=== PATIENT | male | born 1955 | race Caucasian/White ===

== ENCOUNTER 2018-07-10 09:40 | Inpatient (IN) | payer BC, MEDICARE, OTHER ==
--- NOTE | 2018-07-10 10:13 | ER Document Report ---
ED Medical Screen (RME) - General Chief Complaint: Bloody Stools Stated Complaint: BLOOD IN STOOL Time Seen by Provider: 07/10/18 10:04 Mode of Arrival: Ambulatory Information source: Patient TRAVEL OUTSIDE OF THE [place] IN LAST 30 DAYS: No - HPI Patient complains to provider of: BLOOD IN STOOL, NEAR SYNCOPE Notes: 07/10/18 10:11 Patient here with complaints of bloody stool. The patient states that last night he had a few episodes of feeling somewhat dizzy. This morning he went to work and has had several episodes of bright red blood in his stool with some dark stool as well. States last time that he went to the bathroom, he felt like he was going to pass out when he got up. He got very dizzy, diaphoretic. No syncope, but very close to syncope. No chest pain. Patient denies blood thinners aside from a baby aspirin at night. He denies any chronic NSAID use. He denies any alcohol use. No history of GI bleed. No chest pain. Exam Nontoxic, no distress. Pale. Lungs clear and equal throughout. Mild tachycardia. No focal abdominal tenderness on limited abdominal exam in triage. Plan CBC, CMP, troponin, EKG, type and screen, coags, saline lock. Patient will be taken back to the room immediately. An initial examination was made on the patient as part of the triage process, and it was determined a more comprehensive evaluation was necessary. Initial labs were ordered and patient was transferred to another provider in the ED who assumed care and finished evaluation and plan. - Related Data Allergies/Adverse Reactions: No Known Allergies Allergy (Verified 07/10/18 09:42) Past Medical History - Social History Chew tobacco use (# tins/day): Yes Frequency of alcohol use: None Drug Abuse: None - Past Medical History Cardiac Medical History: Reports: Hx Hypercholesterolemia, Hx Hypertension Endocrine Medical History: Reports: Hx Diabetes Mellitus Type 2 Renal/ Medical History: Denies: Hx Peritoneal Dialysis Past Surgical History: Reports: Hx Cholecystectomy, Hx Orthopedic Surgery - right wrist fx - Immunizations Hx Diphtheria, Pertussis, Tetanus Vaccination: Yes Physical Exam - Vital signs Vitals: Temp Pulse Resp BP Pulse Ox 98.0 F 116 H 18 99/58 L 100 07/10/18 09:52 07/10/18 09:52 07/10/18 09:52 07/10/18 09:52 07/10/18 09:52 Course - Vital Signs Vital signs: Temp Pulse Resp BP Pulse Ox 98.0 F 116 H 18 99/58 L 100 07/10/18 09:52 07/10/18 09:52 07/10/18 09:52 07/10/18 09:52 07/10/18 09:52
[2018-07-10] MEDS ORDERED: ROCURONIUM BROMIDE INJ 50 MG/5 ML VIAL IV ONE (10:43)
[2018-07-10] MEDS ORDERED: PHENYLEPHRINE HCL INJ/PF 10 MG/1 ML SDV ONE (10:43)
[2018-07-10] MEDS ORDERED: DEXAMETHASONE SOD PHOSPHATE INJ 4 MG/1 ML VIAL ONE (10:43)
[2018-07-10] MEDS ORDERED: ONDANSETRON HCL INJ/PF 4 MG/2 ML SDV ONE ×2 (10:43→17:22)
[2018-07-10] MEDS ORDERED: SUCCINYLCHOLINE CHLORIDE INJ 200 MG/10 ML VIAL ONE (10:43)
[2018-07-10 10:54] LABS: ABSOLUTE EOSINOPHILS # (AUTO) 0.1 10^3/uL (0.0-0.6); ABSOLUTE LYMPHOCYTES (AUTO) 1.3 10^3/uL (0.5-4.7); ABSOLUTE MONOCYTES (AUTO) 0.7 10^3/uL (0.1-1.4); ABSOLUTE NEUT (AUTO) 8.6 10^3/uL (1.7-8.2); BASOPHILS % (AUTO) 0.4 % (0-2); EOSINOPHILS % (AUTO) 1.3 % (0-6); HEMATOCRIT 35.4 % (37.9-51.0); HEMOGLOBIN 12.5 g/dL (13.5-17.0); LYMPHOCYTES % (AUTO) 11.8 % (13-45); MEAN CORPUSCULAR HEMOGLOBIN 30.7 pg (27.0-33.4); MEAN CORPUSCULAR HGB CONC 35.4 g/dL (32.0-36.0); MEAN CORPUSCULAR VOLUME 87 fl (80-97); MONOCYTES % (AUTO) 6.7 % (3-13); PLATELET COUNT 211 10^3/uL (150-450); RED BLOOD COUNT 4.08 10^6/uL (4.35-5.55); RED CELL DISTRIBUTION WIDTH 13.5 % (11.5-14.0); SEGMENTED NEUTROPHILS % (AUTO) 79.8 % (42-78); TOTAL CELLS COUNTED % (AUTO) 100 %; WHITE BLOOD COUNT 10.8 10^3/uL (4.0-10.5)
[2018-07-10 11:08] LABS: INTERNATIONAL RATION (INR) 1.01; PARTIAL THROMBOPLASTIN TIME 24.1 SEC (23.5-35.8); PROTHROMBIN TIME 13.8 SEC (11.4-15.4)
[2018-07-10 11:28] LABS: ALANINE AMINOTRANSFERASE 24 U/L (21-72); ALBUMIN 3.8 g/dL (3.5-5.0); ALKALINE PHOSPHATASE 54 U/L (38-126); ANION GAP 9 (5-19); ASPARTATE AMINO TRANSFERASE 20 U/L (17-59); BILIRUBIN,DIRECT 0.4 mg/dL (0.0-0.4); BILIRUBIN,TOTAL 1.1 mg/dL (0.2-1.3); BLOOD UREA NITROGEN 18 mg/dL (7-20); CALCIUM 9.1 mg/dL (8.4-10.2); CARBON DIOXIDE 23 mmol/L (22-30); CHLORIDE 105 mmol/L (98-107); GLUCOSE 267 mg/dL (75-110); POTASSIUM 4.2 mmol/L (3.6-5.0); SODIUM 137.2 mmol/L (137-145); TOTAL PROTEIN 6.3 g/dL (6.3-8.2)
[2018-07-10] MEDS ORDERED: NORMAL SALINE 1000 ML 1,000 ML IV ONE ×3 (11:31→13:03)
--- NOTE | 2018-07-10 11:31 | ER Document Report ---
ED General - General Chief Complaint: Bloody Stools Stated Complaint: BLOOD IN STOOL Time Seen by Provider: 07/10/18 10:04 Mode of Arrival: Ambulatory TRAVEL OUTSIDE OF THE [place] IN LAST 30 DAYS: No - HPI Notes: Patient presents to the emergency department for evaluation of GI bleeding. He states he has had bright red and dark maroon stools. He had 4 episodes prior to arrival. He states that with these episodes he has become diaphoretic, near syncopal, dizzy. He denies any pain of any sort. He states he takes a baby aspirin daily but no other blood thinners. He denies any recent abnormal travel. He had a colonoscopy done approximately [address] Bullock. He s tates there were no significant abnormalities to his knowledge. - Related Data Allergies/Adverse Reactions: No Known Allergies Allergy (Verified 07/10/18 09:42) Past Medical History - General Information source: Patient - Social History Smoking Status: Never Smoker Chew tobacco use (# tins/day): Yes Frequency of alcohol use: None Drug Abuse: None Family History: Reviewed & Not Pertinent Patient has suicidal ideation: No Patient has homicidal ideation: No - Past Medical History Cardiac Medical History: Reports: Hx Hypercholesterolemia, Hx Hypertension Endocrine Medical History: Reports: Hx Diabetes Mellitus Type 2 Renal/ Medical History: Denies: Hx Peritoneal Dialysis Past Surgical History: Reports: Hx Cholecystectomy, Hx Orthopedic Surgery - right wrist fx - Immunizations Hx Diphtheria, Pertussis, Tetanus Vaccination: Yes Review of Systems - Review of Systems Constitutional: Weakness EENT: No symptoms reported Cardiovascular: No symptoms reported Respiratory: No symptoms reported Genitourinary: See HPI Musculoskeletal: No symptoms reported Skin: No symptoms reported Neurological/Psychological: See HPI Physical Exam - Vital signs Vitals: Temp Pulse Resp BP Pulse Ox 98.0 F 116 H 18 99/58 L 100 07/10/18 09:52 07/10/18 09:52 07/10/18 09:52 07/10/18 09:52 07/10/18 09:52 - Notes Notes: 63-year-old male appears his stated age in a mild amount of distress. I actually see him when he is on his way back from the bathroom. He had a near syncopal episode there. He is pale, diaphoretic, weak. Head is normal cephalic any traumatic. Pupils are equal, round, reactive to light. Conjunctive are pale. Oral mucosa is moist. Heart is regular rate and rhythm, lungs are clear to auscultate bilaterally. Abdomen is soft, nontender. Extremities without cy anosis or clubbing. Calves nontender. Peripheral pulses are equal. Patient is awake and alert, oriented x3. Cranial nerves II through XII are grossly intact without focal neurological deficits. Strength is 4+ out of 5 bilateral upper and lower extremities. Sensation is intact. Reflexes symmetrical. Course - Re-evaluation Re-evalutation: 07/10/18 11:30 Patient presents to the emergency department for evaluation. On arrival he was initially seen by triage. Laboratory investigations have been ordered. The patient was going to the bathroom to produce a stool sample when he became near syncopal. His was with him. He did not fall all the way to the ground. He did not hit his head or lose consciousness. He was brought into the room and at that time I examined him. He was pale and diaphoretic. He was given IV fluids. 2 large-bore IVs were established. He remains on the monitor. Hemoglobin is 12.5, I do not have a baseline hemoglobin for this patient. He is currently symptomatic with significant GI bleeding. We will try to contact his rug setter [place]. Unfortunately, we do not have an on-call rug setter [place] today. We will continue to follow. 07/10/18 13:35 At 12 noon I did speak to the patient's rug setter [place], Dr. Bullock. He agreed to see the patient in consult, stated initially that he would require medical stabilization first. After 2 L, the patient's heart rate is in the 80s- 90s. His blood pressures have been between 95 and 110 systolic after adequate fluid resuscitation. He is on normal saline at 200 ml\hour. He has not had any further bleeding episodes. He no longer feels near syncopal. I spoke with Dr. Smith, who accepted the patient. I then spoke to Kamila Clark NP, who will see the patient for admission. - Vital Signs Vital signs: Temp Pulse Resp BP Pulse Ox 98.0 F 116 H 13 96/58 L 100 07/10/18 09:52 07/10/18 09:52 07/10/18 12:31 07/10/18 12:31 07/10/18 12:31 - Laboratory Result Diagrams: 07/10/18 13:50 07/10/18 10:27 Laboratory results interpreted by me: 07/10/18 07/10/18 07/10/18 10:27 10:27 11:10 WBC 10.8 H RBC 4.08 L 2.67 L Hgb 12.5 L 8.1 L D Hct 35.4 L 23.5 L Plt Count 133 L Seg Neutrophils % 79.8 H Lymphocytes % 11.8 L Absolute Neutrophils 8.6 H Glucose 267 H - EKG Interpretation by Me Additional EKG results interpreted by me: 07/10/18 13:37 Normal sinus with a rate of 100 bpm. Normal axis and intervals, no acute ST changes concerning for ischemia or infarction. Critical Care Note - Critical Care Note Total time excluding time spent on procedures (mins): 20 Discharge - Discharge Clinical Impression: GI bleeding, Hematochezia, Anemia, blood loss Condition: Stable Disposition: ADMITTED INPATIENT Admitting Provider: Kamila Clark NP, under Dr. Smith Unit Admitted: [facility]
--- NOTE | 2018-07-10 12:39 | EKG REPORT ---
SEVERITY:- OTHERWISE NORMAL ECG - SINUS TACHYCARDIA : Confirmed by: Rosalino Cheney MD 10-Jul-2018 12:38:31
[2018-07-10 13:35] LABS: HEMATOCRIT 23.5 % (37.9-51.0); MEAN CORPUSCULAR HEMOGLOBIN 30.3 pg (27.0-33.4); MEAN CORPUSCULAR HGB CONC 34.4 g/dL (32.0-36.0); MEAN CORPUSCULAR VOLUME 88 fl (80-97); PLATELET COUNT 133 10^3/uL (150-450); RED BLOOD COUNT 2.67 10^6/uL (4.35-5.55); RED CELL DISTRIBUTION WIDTH 13.2 % (11.5-14.0)
[2018-07-10 13:36] LABS: HEMOGLOBIN 8.1 g/dL (13.5-17.0)
[2018-07-10] MEDS ORDERED: PEG 3350/NA SULF,BICARB,CL/KCL 4000 ML PO ONE (14:00)
[2018-07-10 14:05] LABS: HEMATOCRIT 29.2 % (37.9-51.0); MEAN CORPUSCULAR HEMOGLOBIN 30.4 pg (27.0-33.4); MEAN CORPUSCULAR HGB CONC 35.4 g/dL (32.0-36.0); MEAN CORPUSCULAR VOLUME 86 fl (80-97); PLATELET COUNT 174 10^3/uL (150-450); RED BLOOD COUNT 3.39 10^6/uL (4.35-5.55); RED CELL DISTRIBUTION WIDTH 13.7 % (11.5-14.0); WHITE BLOOD COUNT 12.5 10^3/uL (4.0-10.5)
[2018-07-10 14:07] LABS: HEMOGLOBIN 10.3 g/dL (13.5-17.0)
[2018-07-10] MEDS ORDERED: DEXTROSE 50%-WATER 25 GM/50 ML DISP.SYRIN IV PRN ×2 (14:19)
[2018-07-10] MEDS ORDERED: DEXTROSE 40% GEL 15 GM TUBE PO PRN ×2 (14:19)
[2018-07-10] MEDS ORDERED: GLUCAGON,HUMAN RECOMB 1 MG INJ IM PRN (14:19)
[2018-07-10] MEDS ORDERED: PROMETHAZINE HCL INJ 25 MG/1 ML VIAL IV PRN (14:37)
[2018-07-10] MEDS ORDERED: ACETAMINOPHEN 325 MG TABLET PO PRN (14:37)
[2018-07-10] MEDS ORDERED: NORMAL SALINE 250 ML IV PRN ×2 (15:00)
[2018-07-10 15:32] LABS: HEMATOCRIT 28.5 % (37.9-51.0); MEAN CORPUSCULAR HEMOGLOBIN 30.7 pg (27.0-33.4); MEAN CORPUSCULAR HGB CONC 34.9 g/dL (32.0-36.0); MEAN CORPUSCULAR VOLUME 88 fl (80-97); PLATELET COUNT 203 10^3/uL (150-450); RED BLOOD COUNT 3.24 10^6/uL (4.35-5.55); RED CELL DISTRIBUTION WIDTH 13.3 % (11.5-14.0); WHITE BLOOD COUNT 11.9 10^3/uL (4.0-10.5)
[2018-07-10] MEDS ORDERED: FENTANYL CITRATE INJ/PF 100 MCG/2 ML AMPUL ONE (17:22)
[2018-07-10] MEDS ORDERED: DIPHENHYDRAMINE HCL 50 MG/ML VIAL ONE (17:22)
[2018-07-10] MEDS ORDERED: NALOXONE HCL INJ/PF 0.4 MG/1 ML SDV ONE (17:23)
[2018-07-10] MEDS ORDERED: EPINEPHRINE INJ 1 MG/10 ML DISP.SYRIN ONE ×2 (17:23→19:12)
[2018-07-10] MEDS ORDERED: FLUMAZENIL INJ 0.5 MG/5 ML VIAL ONE (17:23)
[2018-07-10] MEDS ORDERED: GLUCAGON,HUMAN RECOMB 1 MG INJ ONE (17:23)
[2018-07-10 17:38] LABS: APPEARANCE,URINE SLIGHTLY-CLOUDY; BILIRUBIN,URINE NEGATIVE (NEGATIVE); COLOR,URINE YELLOW; GLUCOSE, URINE 50 mg/dL (NEGATIVE); KETONES,URINE 20 mg/dL (NEGATIVE); LEUKOCYTE ESTERASE,URINE NEGATIVE (NEGATIVE); NITRITE,URINE NEGATIVE (NEGATIVE); PROTEIN,URINE NEGATIVE (NEGATIVE); URINE SPECIFIC GRAVITY 1.021; UROBILINOGEN,URINE NEGATIVE mg/dL (<2.0)
[2018-07-10] MEDS ORDERED: NORMAL SALINE 1000 ML 1,000 ML IV PRN (18:32)
[2018-07-10] MEDS: INSULIN LISPRO 100 UNIT/ML 3 ML VIAL SUBCUT SCH (18:47)
[2018-07-10] MEDS: MIDAZOLAM 2 MG/2 ML INJ ONE ×2 (18:47→18:50)
--- NOTE | 2018-07-10 18:51 | PDOC H&P ---
History of Present Illness Admission Date/PCP: 07/10/18 13:45 THOMPSON CANNON MD History of Present Illness: LORETTA SHINE SR is a 63 year old male with past medical history significant for hypertension, hyperlipidemia type 2 diabetes mellitus, and arthritis who presented to the emergency department today with a complaint of 1 day of dizziness followed by onset of melena. No previous history of GI bleeding. Has had routine colonoscopy that was unremarkable in the past. Patient reports that he uses meloxicam daily with intermittent/rare BC powder use but no other regular NSAID or alcohol intake. While in the emergency department, he had a large grossly bloody, bright red blood with clots bowel movement the immediately proceeded a witnessed syncopal event by nursing and the ED provider. Patient did not experience a fall at that time as he was sitting on the commode. However, he did have a second syncopal event while getting up to a bedside commode on his own with fall to the floor, without reported injury. Evaluation by the ED provider revealed initial hemoglobin of 12.5 (unknown baseline) that has trended down to 10.0, mild leukocytosis (11.9), normal coags, unremarkable chemistry, normal urinalysis, and clearly occult stool positive. ED provider arranged with Dr. Bullock for the patient undergo colonoscopy this evening; patient has already completed part of his bowel prep. At the time of my exam, the patient was pale, diaphoretic, slightly tachycardic (heart rate 105), and hypotensive after receiving 2.5 L of IV fluids (manual blood pressure 90/58). He was ordered 2 units of PRBCs stat and admitted to the ICU for management of the above stated complaints. Past Medical History Cardiac Medical History: Reports: Hyperlipidema, Hypertension Denies: Coronary Artery Disease, Myocardial Infarction Pulmonary Medical History: Reports: None EENT Medical History: Reports: None Neurological Medical History: Reports: None Endocrine Medical History: Reports: Diabetes Mellitus Type 2 Denies: Hypothyroidism Renal/ Medical History: Reports: None Malignancy Medical History: Reports: None GI Medical History: Reports: None Musculoskeltal Medical History: Reports: Arthritis Psychiatric Medical History: Reports: None Traumatic Medical History: Reports: None Hematology: Reports: None Infectious Medical History: Reports: None Past Surgical History Past Surgical History: Reports: Cholecystectomy, Orthopedic Surgery - right wrist fx Social History Information Source: Patient Lives with: Spouse/Significant other Smoking Status: Never Smoker Frequency of Alcohol Use: None Hx Recreational Drug Use: No Hx Prescription Drug Abuse: No - Advance Directive Resuscitation Status: Full Code Family History Family History: Reviewed & Not Pertinent, CVA, DM Parental Family History Reviewed: Yes Children Family History Reviewed: Yes Sibling(s) Family History Reviewed.: Yes Medication/Allergy Home Medications: Aspirin [Juan Chewable Aspirin] 81 mg PO DAILY 07/10/18 Atorvastatin Calcium [Lipitor 40 mg Tablet] 1 tab PO DAILY 07/10/18 Lisinopril [Prinivil] 10 mg PO DAILY 07/10/18 Meloxicam [Mobic 15 mg Tablet] 1 tab PO DAILY 07/10/18 Mv-Mn/Folic Acid/Lutein/Qcf264 [Mens Multivit High Potency Tab] 1 each PO DAILY 07/10/18 Sitagliptin Phos/Metformin HCl [Janumet Xr 50-1,000 mg Tablet] 1 tab PO DAILY 07/10/18 Allergies/Adverse Reactions: No Known Allergies Allergy (Verified 07/10/18 09:42) Review of Systems Constitutional: PRESENT: fatigue, weakness. ABSENT: chills, fever(s), headache(s), weight gain, weight loss Eyes: ABSENT: visual disturbances Ears: ABSENT: hearing changes Cardiovascular: ABSENT: chest pain, dyspnea on exertion, edema, orthropnea, palpitations Respiratory: ABSENT: cough, hemoptysis Gastrointestinal: PRESENT: as per HPI, melena. ABSENT: abdominal pain, constipation, diarrhea, hematemesis, hematochezia, nausea, vomiting Genitourinary: ABSENT: dysuria, hematuria Musculoskeletal: ABSENT: joint swelling Integumentary: ABSENT: rash, wounds Neurological: PRESENT: dizziness, syncope. ABSENT: abnormal gait, abnormal speech, confusion, focal weakness Psychiatric: ABSENT: anxiety, depression, homidical ideation, suicidal ideation Endocrine: ABSENT: cold intolerance, heat intolerance, polydipsia, polyuria Hematologic/Lymphatic: ABSENT: easy bleeding, easy bruising Physical Exam Vital Signs: Temp Pulse Resp BP Pulse Ox 98.1 F 90 21 H 97/53 L 100 07/10/18 17:49 07/10/18 17:49 07/10/18 18:00 07/10/18 17:55 07/10/18 18:00 Intake & Output 07/09/18 07/10/18 07/11/18 06:59 06:59 06:59 Intake Total 2000 Output Total 0 Balance 1999 Weight 115.3 kg General appearance: PRESENT: cooperative, mild distress, obese, well-developed, well-nourished Head exam: PRESENT: atraumatic, normocephalic Eye exam: PRESENT: conjunctiva pale, EOMI, PERRLA. ABSENT: scleral icterus Mouth exam: PRESENT: moist, tongue midline Neck exam: ABSENT: carotid bruit, JVD, lymphadenopathy, thyromegaly Respiratory exam: PRESENT: clear to auscultation shayne, symmetrical, unlabored. ABSENT: rales, rhonchi, wheezes Cardiovascular exam: PRESENT: RRR, +S1, +S2, tachycardia. ABSENT: diastolic murmur, rubs, systolic murmur Pulses: PRESENT: normal dorsalis pedis pul Vascular exam: PRESENT: normal capillary refill GI/Abdominal exam: PRESENT: normal bowel sounds, soft. ABSENT: distended, guarding, mass, organolmegaly, rebound, tenderness Rectal exam: PRESENT: deferred Extremities exam: PRESENT: full ROM. ABSENT: calf tenderness, clubbing, pedal edema Neurological exam: PRESENT: alert, awake, oriented to person, oriented to place, oriented to time, oriented to situation, CN II-XII grossly intact. ABSENT: motor sensory deficit Psychiatric exam: PRESENT: appropriate affect, normal mood. ABSENT: homicidal ideation, suicidal ideation Skin exam: PRESENT: dry, intact, warm. ABSENT: cyanosis, rash Results Laboratory Results: 07/10/18 15:19 07/10/18 10:27 07/10/18 07/10/18 07/10/18 10:27 10:27 10:27 WBC 10.8 H RBC 4.08 L Hgb 12.5 L Hct 35.4 L MCV 87 MCH 30.7 MCHC 35.4 RDW 13.5 Plt Count 211 Seg Neutrophils % 79.8 H Lymphocytes % 11.8 L Monocytes % 6.7 Eosinophils % 1.3 Basophils % 0.4 Absolute Neutrophils 8.6 H Absolute Lymphocytes 1.3 Absolute Monocytes 0.7 Absolute Eosinophils 0.1 Absolute Basophils 0.0 Sodium 137.2 Potassium 4.2 Chloride 105 Carbon Dioxide 23 Anion Gap 9 BUN 18 Creatinine 0.91 Est GFR ( Amer) > 60 Est GFR (Non-Af Amer) > 60 Glucose 267 H Calcium 9.1 Total Bilirubin 1.1 AST 20 ALT 24 Alkaline Phosphatase 54 Total Protein 6.3 Albumin 3.8 Urine Color Urine Appearance Urine pH Ur Specific Adams Urine Protein Urine Glucose (UA) Urine Ketones Urine Blood Urine Nitrite Ur Leukocyte Esterase Urine WBC (Auto) Urine RBC (Auto) Stool Occult Blood Blood Type B POSITIVE Antibody Screen NEGATIVE 07/10/18 07/10/18 07/10/18 11:10 11:10 13:50 WBC 9.0 12.5 H RBC 2.67 L 3.39 L Hgb 8.1 L D 10.3 L D Hct 23.5 L 29.2 L MCV 88 86 MCH 30.3 30.4 MCHC 34.4 35.4 RDW 13.2 13.7 Plt Count 133 L 174 Seg Neutrophils % Lymphocytes % Monocytes % Eosinophils % Basophils % Absolute Neutrophils Absolute Lymphocytes Absolute Monocytes Absolute Eosinophils Absolute Basophils Sodium Potassium Chloride Carbon Dioxide Anion Gap BUN Creatinine Est GFR ( Amer) Est GFR (Non-Af Amer) Glucose Calcium Total Bilirubin AST ALT Alkaline Phosphatase Total Protein Albumin Urine Color Urine Appearance Urine pH Ur Specific Adams Urine Protein Urine Glucose (UA) Urine Ketones Urine Blood Urine Nitrite Ur Leukocyte Esterase Urine WBC (Auto) Urine RBC (Auto) Stool Occult Blood POSITIVE Blood Type Antibody Screen 07/10/18 07/10/18 15:19 17:10 WBC 11.9 H RBC 3.24 L Hgb 10.0 L Hct 28.5 L MCV 88 MCH 30.7 MCHC 34.9 RDW 13.3 Plt Count 203 Seg Neutrophils % Lymphocytes % Monocytes % Eosinophils % Basophils % Absolute Neutrophils Absolute Lymphocytes Absolute Monocytes Absolute Eosinophils Absolute Basophils Sodium Potassium Chloride Carbon Dioxide Anion Gap BUN Creatinine Est GFR ( Amer) Est GFR (Non-Af Amer) Glucose Calcium Total Bilirubin AST ALT Alkaline Phosphatase Total Protein Albumin Urine Color YELLOW Urine Appearance SLIGHTLY-CLOUDY Urine pH 5.0 Ur Specific Adams 1.021 Urine Protein NEGATIVE Urine Glucose (UA) 50 H Urine Ketones 20 H Urine Blood NEGATIVE Urine Nitrite NEGATIVE Ur Leukocyte Esterase NEGATIVE Urine WBC (Auto) 2 Urine RBC (Auto) 0 Stool Occult Blood Blood Type Antibody Screen 07/10/18 10:27 Troponin I 0.032 Assessment and Plan - Diagnosis (1) GI bleeding Qualifiers: GI bleed type/associated pathology: unspecified gastrointestinal hemorrhage type Qualified Code(s): K92.2 - Gastrointestinal hemorrhage, unspecified Is this a current diagnosis for this admission?: Yes Plan: Lower GI bleed with hematochezia, erick bright red blood per rectum with blood clots. Patient presented with onset of melena noted this morning that rapidly p rogressed while in the emergency department to erick bleeding. He does utilize aspirin and meloxicam daily at home but does not have additional NSAID, BC powder, or EtOH use. He is admitted to the ICU. We will start Protonix IV daily for PUD ppx. GI is consulted; Dr. Bullock has ordered GoLYTELY with plans to do colonoscopy this evening. Continue IV fluids. 2 units PRBC secondary to active bleeding with syncope, tachycardia, and hypotension. Serial CBCs; continue to transfuse as necessary. (2) Acute blood loss anemia Is this a current diagnosis for this admission?: Yes Plan: Secondary to lower GI bleed. Hgb 12.5--> 8.1 (believed to be in error; likely drawn from extremity w/ IVF running)--> 10.3--> 10.0 (now receiving 1st unit blood) Patient has received 2.5 L IV fluids; continuing maintenance IV fluids. He is ordered 2 units PRBC stat. We will monitor serial CBCs and continue to transfuse for hemoglobin less than 8 or active bleeding. Remaining management as above. (3) Diabetes mellitus Qualifiers: Diabetes mellitus type: type 2 Diabetes mellitus fci insulin use: without long distance operator use Is this a current diagnosis for this admission?: Yes Plan: Patient is currently n.p.o. secondary to active GI bleed and need for colonoscopy. Accu-Cheks every 6 hours with Humalog for sliding scale coverage and hypoglycemia protocol in place. (4) Hypertension Is this a current diagnosis for this admission?: Yes Plan: Patient reports history of hypertension; typically utilizes lisinopril at home. Currently hypotensive secondary to acute blood loss anemia. Holding home dose lisinopril. (5) Hyperlipidemia Is this a current diagnosis for this admission?: Yes Plan: Holding patient's dose atorvastatin currently secondary to n.p.o. status. (6) Hypotension Qualifiers: Hypotension type: other hypotension type Qualified Code(s): I95.89 - Other hypotension Is this a current diagnosis for this admission?: Yes Plan: Secondary to acute blood loss anemia in setting of lower GI bleed. Bed rest. Fall precautions. Remaining management as above. (7) Syncope and collapse Is this a current diagnosis for this admission?: Yes Plan: Secondary to hypotension and possible vasovagal response and patient with acute blood loss anemia secondary to active GI bleeding. The patient had a syncopal event while sitting on the commode, without fall or injury. Per ED provider the patient was witnessed to be tachycardic, hypotensive, pale and diaphoretic with snoring respirations. This improved with return to the bed and aggressive IV fluids. A second syncopal event, witnessed by his , occurred when the patient got up independently to use a bedside commode. At that time he did fall to the floor, without reported injury. Bed rest. Fall precautions. Management as above. - Time Time Spent with patient: 35 or more minutes Medications reviewed and adjusted accordingly: Yes Anticipated discharge: Home - Inpatient Certification Based on my medical assessment, after consideration of the patient's comorbidities, presenting symptoms, or acuity I expect that the services needed warrant INPATIENT care.: Yes I certify that my determination is in accordance with my understanding of Medicare's requirements for reasonable and necessary INPATIENT services [42 CFR 412.3e].: Yes Medical Necessity: Need Close Monitoring Due to Risk of Patient Decompensation, Need For IV Fluids, Need For Continuous Telemetry Monitoring, Need for Surgery, Risk of Complication if Not Cared For in Hospital
--- NOTE | 2018-07-10 19:40 | PDOC CONSULTATION ---
Consultation Consult Date: 07/10/18 History of Present Illness Admission Date/PCP: 07/10/18 13:45 THOMPSON CANNON MD History of Present Illness: LORETTA SHINE SR is a 63 year old male who was admitted through the emergency room with acute rectal bleeding. He started to pass bright red blood per rectum this morning and has had multiple episodes at home and also in the emergency room. He had a near syncopal attack in the ER. He denies any abdominal pain, nausea, vomiting, or hematemesis. He has a history of pancolonic diverticulosis from a colonoscopy I performed in 2010. On arrival his hemoglobin was 12 but after a few hours it came down to 10. He has been hypotensive and has required IV bolus and currently being transfused. Past Medical History Cardiac Medical History: Reports: Hyperlipidema, Hypertension Denies: Coronary Artery Disease, Myocardial Infarction Pulmonary Medical History: Reports: None EENT Medical History: Reports: None Neurological Medical History: Reports: None Endocrine Medical History: Reports: Diabetes Mellitus Type 2 Denies: Hypothyroidism Renal/ Medical History: Reports: None Malignancy Medical History: Reports: None GI Medical History: Reports: None GI History Note: Pancolonic diverticulosis Musculoskeltal Medical History: Reports: Arthritis Psychiatric Medical History: Reports: None Traumatic Medical History: Reports: None Hematology: Reports: None Infectious Medical History: Reports: None Past Surgical History Past Surgical History: Colonoscopy in 2010 Past Surgical History: Reports: Cholecystectomy, Orthopedic Surgery - right wrist fx Social History Lives with: Spouse/Significant other Smoking Status: Never Smoker Frequency of Alcohol Use: None Hx Recreational Drug Use: No Hx Prescription Drug Abuse: No - Advance Directive Resuscitation Status: Full Code Family History Family History: Reviewed & Not Pertinent, CVA, DM Parental Family History Reviewed: No Children Family History Reviewed: NA Sibling(s) Family History Reviewed.: NA Medication/Allergy Home Medications: Aspirin [Juan Chewable Aspirin] 81 mg PO DAILY 07/10/18 Atorvastatin Calcium [Lipitor 40 mg Tablet] 1 tab PO DAILY 07/10/18 Lisinopril [Prinivil] 10 mg PO DAILY 07/10/18 Meloxicam [Mobic 15 mg Tablet] 1 tab PO DAILY 07/10/18 Mv-Mn/Folic Acid/Lutein/Enf240 [Mens Multivit High Potency Tab] 1 each PO DAILY 07/10/18 Sitagliptin Phos/Metformin HCl [Janumet Xr 50-1,000 mg Tablet] 1 tab PO DAILY 07/10/18 Allergies/Adverse Reactions: No Known Allergies Allergy (Verified 07/10/18 09:42) Review of Systems All systems: reviewed and no additional remarkable complaints except as stated Physical Exam Vital Signs: Temp Pulse Resp BP Pulse Ox 98.2 F 97 20 88/45 L 100 07/10/18 19:15 07/10/18 19:15 07/10/18 19:15 07/10/18 19:15 07/10/18 19:15 Intake & Output 07/09/18 07/10/18 07/11/18 06:59 06:59 06:59 Intake Total 2300 Output Total 0 Balance 2300 Weight 115.3 kg Exam: General: Patient is alert and looks pale HEENT: There is pallor but no jaundice. PERRLA. Oropharynx normal Respiratory: No chest deformity. No respiratory distress. Chest wall palpitation was unremarkable. Breath sounds were normal Cardiovascular: Heart sounds 1 and 2 normal with no murmurs. Abdominal: Not distended. Soft and nontender. Liver and spleen not palpable. No ascites demonstrated. Bowel sounds active. Rectal examination was deferred. Extremities: No edema Neurological: Alert and oriented x4. Grossly nonfocal. Normal speech Skin: No significant rash Psychological: Normal affect Results Laboratory Results: 07/10/18 15:19 07/10/18 10:27 07/10/18 07/10/18 07/10/18 10:27 10:27 10:27 WBC 10.8 H RBC 4.08 L Hgb 12.5 L Hct 35.4 L MCV 87 MCH 30.7 MCHC 35.4 RDW 13.5 Plt Count 211 Seg Neutrophils % 79.8 H Lymphocytes % 11.8 L Monocytes % 6.7 Eosinophils % 1.3 Basophils % 0.4 Absolute Neutrophils 8.6 H Absolute Lymphocytes 1.3 Absolute Monocytes 0.7 Absolute Eosinophils 0.1 Absolute Basophils 0.0 Sodium 137.2 Potassium 4.2 Chloride 105 Carbon Dioxide 23 Anion Gap 9 BUN 18 Creatinine 0.91 Est GFR ( Amer) > 60 Est GFR (Non-Af Amer) > 60 Glucose 267 H Calcium 9.1 Total Bilirubin 1.1 AST 20 ALT 24 Alkaline Phosphatase 54 Total Protein 6.3 Albumin 3.8 Urine Color Urine Appearance Urine pH Ur Specific [place] Urine Protein Urine Glucose (UA) Urine Ketones Urine Blood Urine Nitrite Ur Leukocyte Esterase Urine WBC (Auto) Urine RBC (Auto) Stool Occult Blood Blood Type B POSITIVE Antibody Screen NEGATIVE 07/10/18 07/10/18 07/10/18 11:10 11:10 13:50 WBC 9.0 12.5 H RBC 2.67 L 3.39 L Hgb 8.1 L D 10.3 L D Hct 23.5 L 29.2 L MCV 88 86 MCH 30.3 30.4 MCHC 34.4 35.4 RDW 13.2 13.7 Plt Count 133 L 174 Seg Neutrophils % Lymphocytes % Monocytes % Eosinophils % Basophils % Absolute Neutrophils Absolute Lymphocytes Absolute Monocytes Absolute Eosinophils Absolute Basophils Sodium Potassium Chloride Carbon Dioxide Anion Gap BUN Creatinine Est GFR ( Amer) Est GFR (Non-Af Amer) Glucose Calcium Total Bilirubin AST ALT Alkaline Phosphatase Total Protein Albumin Urine Color Urine Appearance Urine pH Ur Specific [place] Urine Protein Urine Glucose (UA) Urine Ketones Urine Blood Urine Nitrite Ur Leukocyte Esterase Urine WBC (Auto) Urine RBC (Auto) Stool Occult Blood POSITIVE Blood Type Antibody Screen 07/10/18 07/10/18 15:19 17:10 WBC 11.9 H RBC 3.24 L Hgb 10.0 L Hct 28.5 L MCV 88 MCH 30.7 MCHC 34.9 RDW 13.3 Plt Count 203 Seg Neutrophils % Lymphocytes % Monocytes % Eosinophils % Basophils % Absolute Neutrophils Absolute Lymphocytes Absolute Monocytes Absolute Eosinophils Absolute Basophils Sodium Potassium Chloride Carbon Dioxide Anion Gap BUN Creatinine Est GFR ( Amer) Est GFR (Non-Af Amer) Glucose Calcium Total Bilirubin AST ALT Alkaline Phosphatase Total Protein Albumin Urine Color YELLOW Urine Appearance SLIGHTLY-CLOUDY Urine pH 5.0 Ur Specific [place] 1.021 Urine Protein NEGATIVE Urine Glucose (UA) 50 H Urine Ketones 20 H Urine Blood NEGATIVE Urine Nitrite NEGATIVE Ur Leukocyte Esterase NEGATIVE Urine WBC (Auto) 2 Urine RBC (Auto) 0 Stool Occult Blood Blood Type Antibody Screen 07/10/18 10:27 Troponin I 0.032 Assessment & Plan - Diagnosis (1) GI bleeding Qualifiers: GI bleed type/associated pathology: unspecified gastrointestinal hemorrhage type Qualified Code(s): K92.2 - Gastrointestinal hemorrhage, unspecified Is this a current diagnosis for this admission?: Yes Plan: He is likely bleeding from his pancolonic diverticulosis. He will undergo an urgent EGD and colonoscopy. Continue to follow H&H and transfuse as needed (2) Acute blood loss anemia Is this a current diagnosis for this admission?: Yes (3) Hypotension Qualifiers: Hypotension type: other hypotension type Qualified Code(s): I95.89 - Other hypotension Is this a current diagnosis for this admission?: Yes
--- NOTE | 2018-07-10 19:45 | Operative Report ---
Operative Report DATE OF SURGERY: 07/10/18 Operative Report: Pre-op diagnosis: Acute GI bleeding Post-op diagnosis: 1. Duodenal ulcer with a clean base 2. Pancolonic diverticulosis with no definite bleeding diverticulum identified Surgery: Upper endoscopy with biopsy and Colonoscopy Medications: Versed 2mg, Fentanyl 50mcg IV push Tissue removed: Antral and gastric body biopsy Procedure: After informed consent obtained from patient, patient's pharynx was sprayed with Hurricane and conscious sedation was achieved. The upper endoscope was then inserted into the esophagus under direct vision and advanced into the stomach and further into the duodenum. Detailed examination of the duodenum, stomach and the esophagus was then performed. A digital rectal examination was performed and this was unremarkable. The colonoscope was inserted into the rectum and advanced to the cecum. The appendiceal orifice and the terminal ileum were both identified. The mucosa was examined into details as the colonoscope was slowly pulled out of the patient. The endoscope was retroflexed in the rectum. Patient tolerated the procedure well. Findings Esophagus: Normal Stomach: Normal Duodenum: 6 mm ulcer noted at the duodenal bulb with a clean white base. Cecum: Normal Ascending colon: Moderate amount of diverticuli Transverse colon: Multiple diverticuli with a big fresh clot noted in the proximal transverse colon. Detailed examination of this area did not reveal a bleeding diverticulum. There was altered blood noted all over the colon but I was able to clean this out Descending colon: Multiple diverticuli Sigmoid colon: Multiple diverticuli Rectum: Normal except for internal hemorrhoids Plan: Continue to follow H&H. Schedule bleeding scan and obtain surgical consult. Continue IV pantoprazole and discharge with p.o. PPI OPERATION: .
--- NOTE | 2018-07-10 22:53 | RADIOLOGY REPORT (SQ) ---
EXAM DESCRIPTION: NM GASTROINTESTINAL BLEEDING COMPLETED DATE/TME: 07/10/2018 00:00 CLINICAL HISTORY: 63 years Male, Diverticular bleed COMPARISON: None. RADIONUCLIDE AND DOSE: 24.0-mCi Tc99m tagged RBC. TECHNIQUE: Anterior flow imaging, 60 minute anterior static imaging at every two minutes, 60 minute dynamic imaging, Q minute. LIMITATIONS: None. Findings There is accumulation and progression of scintigraphic agent from the right upper abdominal quadrant, expected hepatic flexure, superior mesenteric artery territory. Impression Active lower GI bleed.
--- NOTE | 2018-07-10 23:59 | PDOC CONSULTATION ---
Consultation Consult Date: 07/10/18 Consult reason:: lower gi bleeding History of Present Illness Admission Date/PCP: 07/10/18 13:45 THOMPSON CANNON MD History of Present Illness: LORETTA SHINE SR is a 63 year old maleJwho was admitted through the emergency room with acute rectal bleeding. He started to pass bright red blood per rectum this morning and has had multiple episodes at home and also in the emergency room. He had a near syncopal attack in the ER. He denies any abdominal pain, nausea, vomiting, or hematemesis. He has a history of pancolonic diverticulosis from a colonoscopy performed by ]Dr Mendoza performed in 2010. On arrival his hemoglobin was 12 but after a few hours it came down to 10. He has been hypotensive and has required IV bolus and transfused iwth [address] Mendoza ordered a bleeding scan and I was call by radiologist and notified that there was active bleeding from the hepatic flexure. pt currently is having bloody bowel movements. Past Medical History Cardiac Medical History: Reports: Hyperlipidema, Hypertension Denies: Coronary Artery Disease, Myocardial Infarction Pulmonary Medical History: Reports: None EENT Medical History: Reports: None Neurological Medical History: Reports: None Denies: Seizures Endocrine Medical History: Reports: Diabetes Mellitus Type 2 Denies: Hypothyroidism Renal/ Medical History: Reports: None Malignancy Medical History: Reports: None GI Medical History: Reports: None Musculoskeltal Medical History: Reports: Arthritis Psychiatric Medical History: Reports: None Traumatic Medical History: Reports: None Hematology: Reports: None Infectious Medical History: Reports: None Past Surgical History Past Surgical History: Reports: Cholecystectomy, Orthopedic Surgery - right wrist fx Social History Lives with: Spouse/Significant other Smoking Status: Never Smoker Frequency of Alcohol Use: None Hx Recreational Drug Use: No Hx Prescription Drug Abuse: No - Advance Directive Resuscitation Status: Full Code Family History Family History: Reviewed & Not Pertinent, CVA, DM Parental Family History Reviewed: Yes Children Family History Reviewed: NA Sibling(s) Family History Reviewed.: NA Medication/Allergy Home Medications: Aspirin [Juan Chewable Aspirin] 81 mg PO DAILY 07/10/18 Atorvastatin Calcium [Lipitor 40 mg Tablet] 1 tab PO DAILY 07/10/18 Lisinopril [Prinivil] 10 mg PO DAILY 07/10/18 Meloxicam [Mobic 15 mg Tablet] 1 tab PO DAILY 07/10/18 Mv-Mn/Folic Acid/Lutein/Uoz734 [Mens Multivit High Potency Tab] 1 each PO DAILY 07/10/18 Sitagliptin Phos/Metformin HCl [Janumet Xr 50-1,000 mg Tablet] 1 tab PO DAILY 07/10/18 Allergies/Adverse Reactions: No Known Allergies Allergy (Verified 07/10/18 09:42) Review of Systems Constitutional: ABSENT: chills, fever(s), headache(s), weight gain, weight loss Ears: ABSENT: hearing changes Cardiovascular: ABSENT: chest pain, dyspnea on exertion, edema, orthropnea, palpitations Gastrointestinal: PRESENT: bloating, hematochezia Genitourinary: ABSENT: dysuria, hematuria Musculoskeletal: ABSENT: joint swelling Integumentary: ABSENT: rash, wounds Neurological: ABSENT: abnormal gait, abnormal speech, confusion, dizziness, focal weakness, syncope Psychiatric: ABSENT: anxiety, depression, homidical ideation, suicidal ideation Endocrine: ABSENT: cold intolerance, heat intolerance, polydipsia, polyuria Hematologic/Lymphatic: ABSENT: easy bleeding, easy bruising Physical Exam Vital Signs: Temp Pulse Resp BP Pulse Ox 97.5 F 87 16 107/52 L 100 07/10/18 22:00 07/10/18 19:40 07/10/18 22:37 07/10/18 22:37 07/10/18 22:37 Intake & Output 07/09/18 07/10/18 07/11/18 06:59 06:59 06:59 Intake Total 2700 Output Total 0 Balance 2700 Weight 115.3 kg General appearance: PRESENT: no acute distress Head exam: PRESENT: normocephalic Eye exam: PRESENT: EOMI Mouth exam: PRESENT: dry mucosa Neck exam: PRESENT: full ROM Respiratory exam: PRESENT: clear to auscultation shayne Cardiovascular exam: PRESENT: RRR Pulses: PRESENT: normal radial pulses, normal femoral pulses GI/Abdominal exam: PRESENT: soft Rectal exam: PRESENT: bloody stool Musculoskeletal exam: PRESENT: full ROM Neurological exam: PRESENT: alert, awake, oriented to person, oriented to place, oriented to time, oriented to situation Psychiatric exam: PRESENT: anxious, appropriate affect Results Laboratory Results: 07/10/18 15:19 07/10/18 10:27 07/10/18 07/10/18 07/10/18 10:27 10:27 10:27 WBC 10.8 H RBC 4.08 L Hgb 12.5 L Hct 35.4 L MCV 87 MCH 30.7 MCHC 35.4 RDW 13.5 Plt Count 211 Seg Neutrophils % 79.8 H Lymphocytes % 11.8 L Monocytes % 6.7 Eosinophils % 1.3 Basophils % 0.4 Absolute Neutrophils 8.6 H Absolute Lymphocytes 1.3 Absolute Monocytes 0.7 Absolute Eosinophils 0.1 Absolute Basophils 0.0 Sodium 137.2 Potassium 4.2 Chloride 105 Carbon Dioxide 23 Anion Gap 9 BUN 18 Creatinine 0.91 Est GFR ( Amer) > 60 Est GFR (Non-Af Amer) > 60 Glucose 267 H Calcium 9.1 Total Bilirubin 1.1 AST 20 ALT 24 Alkaline Phosphatase 54 Total Protein 6.3 Albumin 3.8 Urine Color Urine Appearance Urine pH Ur Specific [place] Urine Protein Urine Glucose (UA) Urine Ketones Urine Blood Urine Nitrite Ur Leukocyte Esterase Urine WBC (Auto) Urine RBC (Auto) Stool Occult Blood Blood Type B POSITIVE Antibody Screen NEGATIVE 07/10/18 07/10/18 07/10/18 11:10 11:10 13:50 WBC 9.0 12.5 H RBC 2.67 L 3.39 L Hgb 8.1 L D 10.3 L D Hct 23.5 L 29.2 L MCV 88 86 MCH 30.3 30.4 MCHC 34.4 35.4 RDW 13.2 13.7 Plt Count 133 L 174 Seg Neutrophils % Lymphocytes % Monocytes % Eosinophils % Basophils % Absolute Neutrophils Absolute Lymphocytes Absolute Monocytes Absolute Eosinophils Absolute Basophils Sodium Potassium Chloride Carbon Dioxide Anion Gap BUN Creatinine Est GFR ( Amer) Est GFR (Non-Af Amer) Glucose Calcium Total Bilirubin AST ALT Alkaline Phosphatase Total Protein Albumin Urine Color Urine Appearance Urine pH Ur Specific [place] Urine Protein Urine Glucose (UA) Urine Ketones Urine Blood Urine Nitrite Ur Leukocyte Esterase Urine WBC (Auto) Urine RBC (Auto) Stool Occult Blood POSITIVE Blood Type Antibody Screen 07/10/18 07/10/18 15:19 17:10 WBC 11.9 H RBC 3.24 L Hgb 10.0 L Hct 28.5 L MCV 88 MCH 30.7 MCHC 34.9 RDW 13.3 Plt Count 203 Seg Neutrophils % Lymphocytes % Monocytes % Eosinophils % Basophils % Absolute Neutrophils Absolute Lymphocytes Absolute Monocytes Absolute Eosinophils Absolute Basophils Sodium Potassium Chloride Carbon Dioxide Anion Gap BUN Creatinine Est GFR ( Amer) Est GFR (Non-Af Amer) Glucose Calcium Total Bilirubin AST ALT Alkaline Phosphatase Total Protein Albumin Urine Color YELLOW Urine Appearance SLIGHTLY-CLOUDY Urine pH 5.0 Ur Specific [place] 1.021 Urine Protein NEGATIVE Urine Glucose (UA) 50 H Urine Ketones 20 H Urine Blood NEGATIVE Urine Nitrite NEGATIVE Ur Leukocyte Esterase NEGATIVE Urine WBC (Auto) 2 Urine RBC (Auto) 0 Stool Occult Blood Blood Type Antibody Screen 07/10/18 10:27 Troponin I 0.032 Assessment & Plan - Diagnosis (2) GI bleeding Qualifiers: GI bleed type/associated pathology: unspecified gastrointestinal hemorrhage type Qualified Code(s): K92.2 - Gastrointestinal hemorrhage, unspecified Is this a current diagnosis for this admission?: Yes - Plan Summary Plan Summary: lower gi bleeding from hepatic flexure plan is for extended right hemicolectomy I discussed risks and benifits with pt and his 'including recurrent bleeding infectionl, leak from anastomosis abscess, injury to adjacent organs including ureters mi, pe, stroke, pneumonia, hernia which due tohis obesity and diabetes is likely. pt understands and agrees to proceed.
[2018-07-11] MEDS ORDERED: BUPIVACAINE HCL 0.25 % INJ/PF (2.5 MG/1 ML) 30 ML VIAL ONE (00:19)
[2018-07-11] MEDS ORDERED: BUPIVACAINE INJ/PF LIPOSOME/PF 266 MG/20 ML SDV ONE (00:19)
[2018-07-11] MEDS ORDERED: BUPIVACAINE HCL 0.5%-EPI 1:200000 INJ/PF 30 ML VIAL ONE ×2 (00:19→07:07)
[2018-07-11] MEDS ORDERED: CEFAZOLIN INJ 1 GM VIAL ONE (00:20)
[2018-07-11] MEDS ORDERED: METRONIDAZOLE 500 MG/NS RTU 500 MG/100 ML RTUPB IV ONE (00:22)
[2018-07-11] MEDS ORDERED: FENTANYL CITRATE INJ/PF 250 MCG/5 ML AMPULE ONE (00:46)
[2018-07-11] MEDS ORDERED: MIDAZOLAM 2 MG/2 ML INJ ONE (00:47)
[2018-07-11] MEDS ORDERED: PROPOFOL INJ 200 MG/20 ML VIAL IV ONE (00:47)
[2018-07-11] MEDS ORDERED: HYDROMORPHONE HCL INJ/PF 2 MG/ML AMPULE ONE (00:47)
[2018-07-11] MEDS ORDERED: MEPERIDINE HCL/PF INJ 25 MG/1 ML DISP.SYRIN IV PRN (01:37)
[2018-07-11] MEDS ORDERED: MORPHINE SULFATE 10 MG/ML INJ IV PRN (01:37)
[2018-07-11] MEDS ORDERED: FENTANYL CITRATE INJ/PF 100 MCG/2 ML AMPUL IV PRN ×3 (01:37)
[2018-07-11] MEDS ORDERED: DIPHENHYDRAMINE HCL 50 MG/ML VIAL IV PRN (01:37)
[2018-07-11] MEDS ORDERED: PROMETHAZINE HCL INJ 25 MG/1 ML VIAL IV PRN ×2 (01:37)
--- NOTE | 2018-07-11 02:49 | Operative Report ---
Nonrecallable Operative Report DATE OF SURGERY: 07/11/18 PREOPERATIVE DIAGNOSIS: diverticular bleeding POSTOPERATIVE DIAGNOSIS: diverticular bleeding OPERATION: extended rt hemicolectomy SURGEON: CAROL FERREIRA ANESTHESIA: GA TISSUE REMOVED OR ALTERED: right colon COMPLICATIONS: none ESTIMATED BLOOD LOSS: 100 INTRAOPERATIVE FINDINGS: see dictation PROCEDURE: see dictation
--- NOTE | 2018-07-11 03:25 | OPERATIVE REPORT E ---
Operative Report NAME: LORETTA SHINE SR : 1955 AGE: 63Y DATE OF SURGERY: 07/10/2018 ROOM: 608 PREOPERATIVE DIAGNOSIS: DIVERTICULAR BLEEDING. POSTOPERATIVE DIAGNOSIS: DIVERTICULAR BLEEDING. OPERATION: Extended right hemicolectomy. SURGEON: CAROL FERREIRA M.D. INDICATIONS FOR PROCEDURE: This is a 63-year-old male who presented approximately 36 hours ago with lower GI bleeding and hematochezia. He underwent a colonoscopy by *------* last evening, who documented significant blood in his rectum and did see some fresh blood, but could not identify the source. Specifically, he did identify the fact that it was in either the transverse colon or the hepatic flexure. The patient was then taken to Radiology, where he underwent a bleeding scan, and I was called late last night with the results of that noting active GI bleeding in the hepatic flexure. The patient continued to pass bloody bowel movements despite having 2 units of blood and was, therefore, scheduled for this procedure. PROCEDURE: The patient brought to the operating room awake, alert, in stable condition. Placed on the operative table in supine position. Induced under general anesthesia and intubated. The abdomen was prepped and draped in the usual sterile manner for the procedure. A midline incision was used from about 2 cm below the umbilicus to about 2 cm below the xiphoid. Dissection carried down through subcutaneous tissue with Bovie cautery. The midline fascia was entered with Bovie cautery. The Bookwalter retractor was utilized for retraction. There were some adhesions of omentum to the right upper quadrant from the previous cholecystectomy, which were taken down sharply. Once this was done, we were able to deliver the transverse colon into the abdominal cavity. I then took down the right colon from the peritoneal reflection with Bovie cautery all the way to the cecum and then mobilized the terminal ileum attachments. Once this was done, we continued our dissection cephalic, coming around the hepatic flexure with Bovie cautery to completely free that up, and then dissected the transverse colon and the distal right colon from the omentum using Bovie cautery. We continued this towards the left, where I identified the splenic flexure and took that down sharply with the Bovie cautery and then mobilized the splenic flexure and the distal transverse colon away from the omentum. Once this was accomplished, I mobilized the descending colon along the white line of [place] using Bovie cautery, and noted that the patient did have a somewhat redundant sigmoid colon and descending colon. We then divided the terminal ileum from the colon with 1 firing of the endo YAJAIRA stapler with a blue load and divided the splenic flexure from the descending colon at about 1/3 down the distance from the descending colon, well away from the hepatic flexure, and this was done with the endo YAJAIRA stapler with a blue load. We then divided the mesentery with the LigaSure device all the way across and removed the specimen. Once this was accomplished, we then created an ileal colostomy between the ileum and the proximal descending colon. We did this using a sewn technique, the outer layer being interrupted 3-0 silk and the inner layer being a running 3-0 Vicryl suture. I then closed the mesenteric defect with interrupted placed 2-0 silk sutures. Irrigated the abdominal cavity with normal saline, suctioned dry. Hemostasis was noted to be intact. Placed the NG tube and confirmed good placement, and then closed the midline fascia with a running double-looped 0 PDS suture. The skin was closed with standard skin clips, which completed the procedure. Estimated blood loss was 100 mL. Sponge and needle counts were correct x2. The patient was then transferred back to the intensive care unit in stable condition remaining intubated. DICTATING PHYSICIAN: CAROL EFRREIRA M.D. [id number] PHY#: [id number] ID: [id number] JOB#: [id number] ACCT: [id number] cc:CAROL FERREIRA M.D. >
[2018-07-11 03:58] LABS: HEMATOCRIT 24.1 % (37.9-51.0); HEMOGLOBIN 8.3 g/dL (13.5-17.0); MEAN CORPUSCULAR HEMOGLOBIN 29.6 pg (27.0-33.4); MEAN CORPUSCULAR HGB CONC 34.3 g/dL (32.0-36.0); MEAN CORPUSCULAR VOLUME 86 fl (80-97); PLATELET COUNT 193 10^3/uL (150-450); RED CELL DISTRIBUTION WIDTH 14.6 % (11.5-14.0)
[2018-07-11] MEDS ORDERED: MIDAZOLAM 2 MG/2 ML INJ IV SCH (04:00)
[2018-07-11 04:03] LABS: ANION GAP 6 (5-19); BLOOD UREA NITROGEN 14 mg/dL (7-20); CALCIUM 7.4 mg/dL (8.4-10.2); CARBON DIOXIDE 18 mmol/L (22-30); CHLORIDE 113 mmol/L (98-107); GLUCOSE 247 mg/dL (75-110); POTASSIUM 3.6 mmol/L (3.6-5.0); SODIUM 137.2 mmol/L (137-145)
[2018-07-11] MEDS ORDERED: MIDAZOLAM 2 MG/2 ML INJ IV PRN (04:30)
[2018-07-11 04:34] LABS: ABSOLUTE LYMPHOCYTES# (MANUAL) 0.8 10^3/uL (0.5-4.7); ABSOLUTE MONOCYTES # (MANUAL) 0.4 10^3/uL (0.1-1.4); ABSOLUTE NEUTROPHILS# (MANUAL) 19.3 10^3/uL (1.7-8.2); BAND NEUTROPHILS % (MANUAL) 5 % (3-5); BASOPHILS % (MANUAL) 0 % (0-2); EOSINOPHILS % (MANUAL) 2 % (0-6); LYMPHOCYTES % (MANUAL) 4 % (13-45); MONOCYTES % (MANUAL) 2 % (3-13); SEGMENTED NEUTROPHILS % (MAN) 87 % (42-78); TOTAL CELLS COUNTED 100
[2018-07-11 04:35] LABS: ANISOCYTOSIS SLIGHT; HYPOCHROMASIA 1+; PLATELET COMMENT ADEQUATE
[2018-07-11] MEDS ORDERED: NORMAL SALINE 1000 ML 1,000 ML IV ONE (04:45)
[2018-07-11] MEDS: HYDROMORPHONE HCL INJ/PF 2 MG/ML AMPULE IV PRN ×4 (04:51→22:04)
[2018-07-11] MEDS: INSULIN LISPRO 100 UNIT/ML 3 ML VIAL SUBCUT SCH ×5 (05:03→23:25)
[2018-07-11] MEDS: RINGERS SOLUTION,LACTATED 1,000 ML IV PRN ×3 (06:47→23:20)
--- NOTE | 2018-07-11 06:59 | PDOC PROGRESS REPORT ---
Subjective Progress Note for:: 07/11/18 Subjective:: awake, responsive, follows commands intubated Reason For Visit: ABLA, LOWER GI BLEED post op subtotal colectomy for lower gi diverticular bleed. Physical Exam Vital Signs: Temp Pulse Resp BP Pulse Ox 98.1 F 96 10 L 101/58 L 99 07/11/18 05:56 07/11/18 05:49 07/11/18 06:15 07/11/18 06:16 07/11/18 06:16 Intake & Output 07/09/18 07/10/18 07/11/18 06:59 06:59 06:59 Intake Total 4500 Output Total 2050 Balance 2450 Weight 114.9 kg General appearance: PRESENT: cooperative Head exam: PRESENT: normocephalic Eye exam: PRESENT: conjunctiva pale, EOMI Mouth exam: PRESENT: dry mucosa Neck exam: PRESENT: full ROM Respiratory exam: PRESENT: clear to auscultation shayne, other - intubated Cardiovascular exam: PRESENT: tachycardia Pulses: PRESENT: normal radial pulses, normal femoral pulses Vascular exam: PRESENT: pallor GI/Abdominal exam: PRESENT: hypoactive bowel sounds, soft Rectal exam: PRESENT: deferred Gentrourinary exam: PRESENT: indwelling catheter Extremities exam: PRESENT: full ROM Musculoskeletal exam: PRESENT: normal inspection Neurological exam: PRESENT: alert, awake Psychiatric exam: PRESENT: anxious Skin exam: PRESENT: dry, pallor Results Laboratory Results: 07/11/18 03:35 07/11/18 03:35 07/10/18 07/10/18 07/10/18 10:27 10:27 10:27 WBC 10.8 H RBC 4.08 L Hgb 12.5 L Hct 35.4 L MCV 87 MCH 30.7 MCHC 35.4 RDW 13.5 Plt Count 211 Seg Neutrophils % 79.8 H Lymphocytes % 11.8 L Monocytes % 6.7 Eosinophils % 1.3 Basophils % 0.4 Absolute Neutrophils 8.6 H Absolute Lymphocytes 1.3 Absolute Monocytes 0.7 Absolute Eosinophils 0.1 Absolute Basophils 0.0 Sodium 137.2 Potassium 4.2 Chloride 105 Carbon Dioxide 23 Anion Gap 9 BUN 18 Creatinine 0.91 Est GFR ( Amer) > 60 Est GFR (Non-Af Amer) > 60 Glucose 267 H Calcium 9.1 Total Bilirubin 1.1 AST 20 ALT 24 Alkaline Phosphatase 54 Total Protein 6.3 Albumin 3.8 Urine Color Urine Appearance Urine pH Ur Specific Seth Urine Protein Urine Glucose (UA) Urine Ketones Urine Blood Urine Nitrite Ur Leukocyte Esterase Urine WBC (Auto) Urine RBC (Auto) Stool Occult Blood Blood Type B POSITIVE Antibody Screen NEGATIVE 07/10/18 07/10/18 07/10/18 11:10 11:10 13:50 WBC 9.0 12.5 H RBC 2.67 L 3.39 L Hgb 8.1 L D 10.3 L D Hct 23.5 L 29.2 L MCV 88 86 MCH 30.3 30.4 MCHC 34.4 35.4 RDW 13.2 13.7 Plt Count 133 L 174 Seg Neutrophils % Lymphocytes % Monocytes % Eosinophils % Basophils % Absolute Neutrophils Absolute Lymphocytes Absolute Monocytes Absolute Eosinophils Absolute Basophils Sodium Potassium Chloride Carbon Dioxide Anion Gap BUN Creatinine Est GFR ( Amer) Est GFR (Non-Af Amer) Glucose Calcium Total Bilirubin AST ALT Alkaline Phosphatase Total Protein Albumin Urine Color Urine Appearance Urine pH Ur Specific Seth Urine Protein Urine Glucose (UA) Urine Ketones Urine Blood Urine Nitrite Ur Leukocyte Esterase Urine WBC (Auto) Urine RBC (Auto) Stool Occult Blood POSITIVE Blood Type Antibody Screen 07/10/18 07/10/18 07/11/18 15:19 17:10 03:35 WBC 11.9 H RBC 3.24 L Hgb 10.0 L Hct 28.5 L MCV 88 MCH 30.7 MCHC 34.9 RDW 13.3 Plt Count 203 Seg Neutrophils % Lymphocytes % Monocytes % Eosinophils % Basophils % Absolute Neutrophils Absolute Lymphocytes Absolute Monocytes Absolute Eosinophils Absolute Basophils Sodium 137.2 Potassium 3.6 Chloride 113 H Carbon Dioxide 18 L Anion Gap 6 BUN 14 Creatinine 0.64 Est GFR ( Amer) > 60 Est GFR (Non-Af Amer) > 60 Glucose 247 H Calcium 7.4 L Total Bilirubin AST ALT Alkaline Phosphatase Total Protein Albumin Urine Color YELLOW Urine Appearance SLIGHTLY-CLOUDY Urine pH 5.0 Ur Specific Seth 1.021 Urine Protein NEGATIVE Urine Glucose (UA) 50 H Urine Ketones 20 H Urine Blood NEGATIVE Urine Nitrite NEGATIVE Ur Leukocyte Esterase NEGATIVE Urine WBC (Auto) 2 Urine RBC (Auto) 0 Stool Occult Blood Blood Type Antibody Screen 07/11/18 03:35 WBC 21.0 H RBC 2.80 L Hgb 8.3 L Hct 24.1 L MCV 86 MCH 29.6 MCHC 34.3 RDW 14.6 H Plt Count 193 Seg Neutrophils % Not Reportable Lymphocytes % Not Reportable Monocytes % Not Reportable Eosinophils % Not Reportable Basophils % Not Reportable Absolute Neutrophils Not Reportable Absolute Lymphocytes Not Reportable Absolute Monocytes Not Reportable Absolute Eosinophils Not Reportable Absolute Basophils Not Reportable Sodium Potassium Chloride Carbon Dioxide Anion Gap BUN Creatinine Est GFR ( Amer) Est GFR (Non-Af Amer) Glucose Calcium Total Bilirubin AST ALT Alkaline Phosphatase Total Protein Albumin Urine Color Urine Appearance Urine pH Ur Specific Seth Urine Protein Urine Glucose (UA) Urine Ketones Urine Blood Urine Nitrite Ur Leukocyte Esterase Urine WBC (Auto) Urine RBC (Auto) Stool Occult Blood Blood Type Antibody Screen 07/10/18 07/11/18 10:27 03:35 Troponin I 0.032 NT-Pro-B Natriuret Pep 45 Assessment & Plan - Diagnosis (2) GI bleeding Qualifiers: GI bleed type/associated pathology: unspecified gastrointestinal hemorrhage type Qualified Code(s): K92.2 - Gastrointestinal hemorrhage, unspecified Is this a current diagnosis for this admission?: Yes - Plan Summary Plan Summary: approx 6 hrs post op subtotal colectomy sl tachy this am hb 8.3 lytes/creat ok k= 3.6 plan will tx 2 uprbc follow h/h consider extubation later today.
--- NOTE | 2018-07-11 08:27 | PDOC PROGRESS REPORT ---
Subjective Progress Note for:: 07/11/18 Subjective:: Patient is seen resting in bed orally intubated to the ventilator. He is POD 1 after right hemicolectomy last evening for a diverticular bleed. He is awake and alert. He has just been placed on pressure support on the ventilator in hope to extubate soon. He is able to nod his head appropriately to question. Nursing report episode of hypotension overnight that responded to fluids otherwise no issues. He is presently receiving the first of two units or PRBCs. He denies incisional pain Reason For Visit: ABLA, LOWER GI BLEED Physical Exam Vital Signs: Temp Pulse Resp BP Pulse Ox 98.4 F 115 H 20 103/62 99 07/11/18 07:50 07/11/18 07:50 07/11/18 07:50 07/11/18 07:50 07/11/18 07:50 Intake & Output 07/10/18 07/11/18 07/12/18 06:59 06:59 06:59 Intake Total 4500 2000 Output Total 2050 Balance 2450 2000 Weight 114.9 kg General appearance: PRESENT: no acute distress, obese, well-developed, well-nourished, other - orally, intubated, pale Head exam: PRESENT: atraumatic, normocephalic Eye exam: PRESENT: conjunctiva pale Ear exam: PRESENT: normal external ear exam Mouth exam: PRESENT: moist, tongue midline Neck exam: ABSENT: carotid bruit, JVD, lymphadenopathy, thyromegaly Respiratory exam: PRESENT: clear to auscultation shayne, symmetrical, unlabored. ABSENT: rales, rhonchi, wheezes Cardiovascular exam: PRESENT: +S1, +S2, tachycardia Pulses: PRESENT: normal carotid pulses, normal radial pulses GI/Abdominal exam: PRESENT: diminished bowel sounds, soft, tenderness - midline abdominal incision Rectal exam: PRESENT: deferred Extremities exam: PRESENT: full ROM. ABSENT: calf tenderness, clubbing, pedal edema Neurological exam: PRESENT: alert, awake, CN II-XII grossly intact, other - orally intubated following commands, calm Psychiatric exam: PRESENT: appropriate affect, normal mood. ABSENT: homicidal ideation, suicidal ideation Skin exam: PRESENT: dry, intact, warm. ABSENT: cyanosis, rash Results Laboratory Results: 07/11/18 03:35 07/11/18 03:35 07/10/18 07/10/18 07/10/18 10:27 10:27 10:27 WBC 10.8 H RBC 4.08 L Hgb 12.5 L Hct 35.4 L MCV 87 MCH 30.7 MCHC 35.4 RDW 13.5 Plt Count 211 Seg Neutrophils % 79.8 H Lymphocytes % 11.8 L Monocytes % 6.7 Eosinophils % 1.3 Basophils % 0.4 Absolute Neutrophils 8.6 H Absolute Lymphocytes 1.3 Absolute Monocytes 0.7 Absolute Eosinophils 0.1 Absolute Basophils 0.0 Sodium 137.2 Potassium 4.2 Chloride 105 Carbon Dioxide 23 Anion Gap 9 BUN 18 Creatinine 0.91 Est GFR ( Amer) > 60 Est GFR (Non-Af Amer) > 60 Glucose 267 H Calcium 9.1 Total Bilirubin 1.1 AST 20 ALT 24 Alkaline Phosphatase 54 Total Protein 6.3 Albumin 3.8 Urine Color Urine Appearance Urine pH Ur Specific [place] Urine Protein Urine Glucose (UA) Urine Ketones Urine Blood Urine Nitrite Ur Leukocyte Esterase Urine WBC (Auto) Urine RBC (Auto) Stool Occult Blood Blood Type B POSITIVE Antibody Screen NEGATIVE 07/10/18 07/10/18 07/10/18 11:10 11:10 13:50 WBC 9.0 12.5 H RBC 2.67 L 3.39 L Hgb 8.1 L D 10.3 L D Hct 23.5 L 29.2 L MCV 88 86 MCH 30.3 30.4 MCHC 34.4 35.4 RDW 13.2 13.7 Plt Count 133 L 174 Seg Neutrophils % Lymphocytes % Monocytes % Eosinophils % Basophils % Absolute Neutrophils Absolute Lymphocytes Absolute Monocytes Absolute Eosinophils Absolute Basophils Sodium Potassium Chloride Carbon Dioxide Anion Gap BUN Creatinine Est GFR ( Amer) Est GFR (Non-Af Amer) Glucose Calcium Total Bilirubin AST ALT Alkaline Phosphatase Total Protein Albumin Urine Color Urine Appearance Urine pH Ur Specific [place] Urine Protein Urine Glucose (UA) Urine Ketones Urine Blood Urine Nitrite Ur Leukocyte Esterase Urine WBC (Auto) Urine RBC (Auto) Stool Occult Blood POSITIVE Blood Type Antibody Screen 07/10/18 07/10/18 07/11/18 15:19 17:10 03:35 WBC 11.9 H RBC 3.24 L Hgb 10.0 L Hct 28.5 L MCV 88 MCH 30.7 MCHC 34.9 RDW 13.3 Plt Count 203 Seg Neutrophils % Lymphocytes % Monocytes % Eosinophils % Basophils % Absolute Neutrophils Absolute Lymphocytes Absolute Monocytes Absolute Eosinophils Absolute Basophils Sodium 137.2 Potassium 3.6 Chloride 113 H Carbon Dioxide 18 L Anion Gap 6 BUN 14 Creatinine 0.64 Est GFR ( Amer) > 60 Est GFR (Non-Af Amer) > 60 Glucose 247 H Calcium 7.4 L Total Bilirubin AST ALT Alkaline Phosphatase Total Protein Albumin Urine Color YELLOW Urine Appearance SLIGHTLY-CLOUDY Urine pH 5.0 Ur Specific [place] 1.021 Urine Protein NEGATIVE Urine Glucose (UA) 50 H Urine Ketones 20 H Urine Blood NEGATIVE Urine Nitrite NEGATIVE Ur Leukocyte Esterase NEGATIVE Urine WBC (Auto) 2 Urine RBC (Auto) 0 Stool Occult Blood Blood Type Antibody Screen 07/11/18 03:35 WBC 21.0 H RBC 2.80 L Hgb 8.3 L Hct 24.1 L MCV 86 MCH 29.6 MCHC 34.3 RDW 14.6 H Plt Count 193 Seg Neutrophils % Not Reportable Lymphocytes % Not Reportable Monocytes % Not Reportable Eosinophils % Not Reportable Basophils % Not Reportable Absolute Neutrophils Not Reportable Absolute Lymphocytes Not Reportable Absolute Monocytes Not Reportable Absolute Eosinophils Not Reportable Absolute Basophils Not Reportable Sodium Potassium Chloride Carbon Dioxide Anion Gap BUN Creatinine Est GFR ( Amer) Est GFR (Non-Af Amer) Glucose Calcium Total Bilirubin AST ALT Alkaline Phosphatase Total Protein Albumin Urine Color Urine Appearance Urine pH Ur Specific [place] Urine Protein Urine Glucose (UA) Urine Ketones Urine Blood Urine Nitrite Ur Leukocyte Esterase Urine WBC (Auto) Urine RBC (Auto) Stool Occult Blood Blood Type Antibody Screen 07/10/18 07/11/18 10:27 03:35 Troponin I 0.032 NT-Pro-B Natriuret Pep 45 Assessment and Plan - Diagnosis (1) GI bleeding Qualifiers: GI bleed type/associated pathology: unspecified gastrointestinal hemorrhage type Qualified Code(s): K92.2 - Gastrointestinal hemorrhage, unspecified Is this a current diagnosis for this admission?: Yes Plan: Lower GI bleed with hematochezia, erick bright red blood per rectum with blood clots. Patient presented with onset of melena noted this morning that rapidly progressed while in the emergency department to erick bleeding. He does utilize aspirin and meloxicam daily at home but does not have additional NSAID, BC powder, or EtOH use. Patient found to have diverticular bleed at hepatic flexure. Surgery consulted. Patient taken to the OR for partial colectomy. Presently hgb 8.3 order for transfusion for 2 units of PRBCS first infusing now. Will check H&H post transfusion no further melena (2) Status post colectomy Is this a current diagnosis for this admission?: Yes Plan: POD #1, management per surgery. Hopefully will extubate soon (3) Acute blood loss anemia Is this a current diagnosis for this admission?: Yes Plan: He received 2 units PRBCs prior to OR, receiving first of two more at the present time for hgb8.3 (4) Diabetes mellitus Qualifiers: Diabetes mellitus type: type 2 Diabetes mellitus senior living insulin use: without senior living use Is this a current diagnosis for this admission?: Yes Plan: Patient is currently n.p.o. post op hemicolectomy Accu-Cheks every 6 hours with Humalog for sliding scale coverage and hypoglycemia protocol in place. (5) Diverticula of colon Is this a current diagnosis for this admission?: Yes (6) Hematochezia Is this a current diagnosis for this admission?: Yes Plan: No further bleeding post operatively (7) Hyperlipidemia Is this a current diagnosis for this admission?: Yes Plan: Holding patient's dose atorvastatin currently secondary to n.p.o. status. (8) Hypotension Qualifiers: Hypotension type: other hypotension type Qualified Code(s): I95.89 - Other hypotension Is this a current diagnosis for this admission?: Yes Plan: Secondary to acute blood loss anemia in setting of lower GI bleed. Bed rest
[2018-07-11] MEDS: PANTOPRAZOLE SODIUM 40 MG VIAL IV SCH (14:42)
[2018-07-11 16:27] LABS: HEMATOCRIT 25.9 % (37.9-51.0); HEMOGLOBIN 9.2 g/dL (13.5-17.0); MEAN CORPUSCULAR HEMOGLOBIN 30.3 pg (27.0-33.4); MEAN CORPUSCULAR HGB CONC 35.3 g/dL (32.0-36.0); MEAN CORPUSCULAR VOLUME 86 fl (80-97); PLATELET COUNT 145 10^3/uL (150-450); RED BLOOD COUNT 3.03 10^6/uL (4.35-5.55); RED CELL DISTRIBUTION WIDTH 14.5 % (11.5-14.0); WHITE BLOOD COUNT 17.7 10^3/uL (4.0-10.5)
[2018-07-12] MEDS: HYDROMORPHONE HCL INJ/PF 2 MG/ML AMPULE IV PRN ×4 (02:12→21:23)
[2018-07-12 02:19] LABS: HEMATOCRIT 21.8 % (37.9-51.0); MEAN CORPUSCULAR HEMOGLOBIN 29.8 pg (27.0-33.4); MEAN CORPUSCULAR HGB CONC 34.8 g/dL (32.0-36.0); MEAN CORPUSCULAR VOLUME 86 fl (80-97); PLATELET COUNT 122 10^3/uL (150-450); RED BLOOD COUNT 2.54 10^6/uL (4.35-5.55); RED CELL DISTRIBUTION WIDTH 14.6 % (11.5-14.0); WHITE BLOOD COUNT 14.7 10^3/uL (4.0-10.5)
[2018-07-12 02:30] LABS: HEMOGLOBIN 7.6 g/dL (13.5-17.0)
[2018-07-12 02:36] LABS: ANION GAP 10 (5-19); BLOOD UREA NITROGEN 14 mg/dL (7-20); CALCIUM 7.9 mg/dL (8.4-10.2); CARBON DIOXIDE 21 mmol/L (22-30); CHLORIDE 108 mmol/L (98-107); GLUCOSE 212 mg/dL (75-110); SODIUM 138.7 mmol/L (137-145)
[2018-07-12 03:09] LABS: MEAN CORPUSCULAR HEMOGLOBIN 29.9 pg (27.0-33.4); MEAN CORPUSCULAR VOLUME 85 fl (80-97); PLATELET COUNT 125 10^3/uL (150-450); RED BLOOD COUNT 2.46 10^6/uL (4.35-5.55); RED CELL DISTRIBUTION WIDTH 14.7 % (11.5-14.0); WHITE BLOOD COUNT 13.9 10^3/uL (4.0-10.5)
[2018-07-12 03:47] LABS: ABSOLUTE LYMPHOCYTES# (MANUAL) 1.8 10^3/uL (0.5-4.7); ABSOLUTE MONOCYTES # (MANUAL) 0.7 10^3/uL (0.1-1.4); ABSOLUTE NEUTROPHILS# (MANUAL) 11.4 10^3/uL (1.7-8.2); BASOPHILS % (MANUAL) 0 % (0-2); EOSINOPHILS % (MANUAL) 0 % (0-6); LYMPHOCYTES % (MANUAL) 13 % (13-45); MONOCYTES % (MANUAL) 5 % (3-13); SEGMENTED NEUTROPHILS % (MAN) 82 % (42-78); TOTAL CELLS COUNTED 100
[2018-07-12 03:48] LABS: ANISOCYTOSIS SLIGHT; PLATELET COMMENT DECREASED; TOXIC VACUOLATION PRESENT
[2018-07-12 03:49] LABS: HEMOGLOBIN 7.4 g/dL (13.5-17.0)
[2018-07-12] MEDS: INSULIN LISPRO 100 UNIT/ML 3 ML VIAL SUBCUT SCH ×4 (06:31→23:49)
--- NOTE | 2018-07-12 07:29 | PDOC PROGRESS REPORT ---
Subjective Progress Note for:: 07/12/18 Subjective:: feels ok, min c/o incisional pain Reason For Visit: ABLA, LOWER GI BLEED Physical Exam Vital Signs: Temp Pulse Resp BP Pulse Ox 99.6 F 118 H 12 129/97 H 98 07/12/18 06:35 07/12/18 06:35 07/12/18 06:38 07/12/18 06:38 07/12/18 06:38 Intake & Output 07/11/18 07/12/18 07/13/18 06:59 06:59 06:59 Intake Total 4500 4700 Output Total 2050 1750 Balance 2450 2950 Weight 114.9 kg 118.5 kg General appearance: PRESENT: no acute distress, cooperative Head exam: PRESENT: atraumatic Eye exam: PRESENT: EOMI Mouth exam: PRESENT: dry mucosa Neck exam: PRESENT: full ROM Respiratory exam: PRESENT: clear to auscultation shayne Cardiovascular exam: PRESENT: RRR, tachycardia Pulses: PRESENT: normal radial pulses, normal femoral pulses Vascular exam: PRESENT: normal capillary refill GI/Abdominal exam: PRESENT: other - soft, wound clean, non tender Gentrourinary exam: PRESENT: indwelling catheter Extremities exam: PRESENT: full ROM, +1 edema Neurological exam: PRESENT: alert, awake, oriented to person, oriented to place, oriented to time, oriented to situation Psychiatric exam: PRESENT: appropriate affect Skin exam: PRESENT: dry Results Laboratory Results: 07/12/18 02:58 07/12/18 02:05 07/10/18 07/11/18 07/12/18 10:27 16:07 02:05 WBC 17.7 H 14.7 H RBC 3.03 L 2.54 L Hgb 9.2 L 7.6 L Hct 25.9 L 21.8 L MCV 86 86 MCH 30.3 29.8 MCHC 35.3 34.8 RDW 14.5 H 14.6 H Plt Count 145 L 122 L Seg Neutrophils % Lymphocytes % Monocytes % Eosinophils % Basophils % Absolute Neutrophils Absolute Lymphocytes Absolute Monocytes Absolute Eosinophils Absolute Basophils Sodium Potassium Chloride Carbon Dioxide Anion Gap BUN Creatinine Est GFR ( Amer) Est GFR (Non-Af Amer) Glucose Calcium Magnesium Blood Type B POSITIVE Antibody Screen NEGATIVE 07/12/18 07/12/18 02:05 02:58 WBC 13.9 H RBC 2.46 L Hgb 7.4 L Hct 21.0 L MCV 85 MCH 29.9 MCHC 35.0 RDW 14.7 H Plt Count 125 L Seg Neutrophils % Not Reportable Lymphocytes % Not Reportable Monocytes % Not Reportable Eosinophils % Not Reportable Basophils % Not Reportable Absolute Neutrophils Not Reportable Absolute Lymphocytes Not Reportable Absolute Monocytes Not Reportable Absolute Eosinophils Not Reportable Absolute Basophils Not Reportable Sodium 138.7 Potassium 4.0 Chloride 108 H Carbon Dioxide 21 L Anion Gap 10 BUN 14 Creatinine 0.71 Est GFR ( Amer) > 60 Est GFR (Non-Af Amer) > 60 Glucose 212 H Calcium 7.9 L Magnesium 1.6 Blood Type Antibody Screen 07/10/18 07/11/18 10:27 03:35 Troponin I 0.032 NT-Pro-B Natriuret Pep 45 Assessment & Plan - Diagnosis (1) Diverticula of colon Is this a current diagnosis for this admission?: Yes (2) GI bleeding Qualifiers: GI bleed type/associated pathology: unspecified gastrointestinal hemorrhage type Qualified Code(s): K92.2 - Gastrointestinal hemorrhage, unspecified Is this a current diagnosis for this admission?: Yes - Plan Summary Plan Summary: pt generally feels better has not had bm since surgery no flatus hb this am decreased 7.1 however no evidence of ongoing gi losses will tx 2 units additional lasix , pt edematous. dc ng tube sips of clears trend h/h out of bed.
--- NOTE | 2018-07-12 09:06 | PDOC PROGRESS REPORT ---
Subjective Progress Note for:: 07/12/18 Subjective:: He is POD 2 after right hemicolectomy for diverticular bleed. He is awake and alert, and oriented x 3. Hemoglobin dropped to 7.1 this morning. He is being transfused 2 units packed red blood cells. He has had no further rectal bleeding. Reason For Visit: ABLA, LOWER GI BLEED Physical Exam Vital Signs: Temp Pulse Resp BP Pulse Ox 100.3 F 126 H 20 118/61 99 07/12/18 08:35 07/12/18 08:35 07/12/18 08:35 07/12/18 08:35 07/12/18 08:35 Intake & Output 07/11/18 07/12/18 07/13/18 06:59 06:59 06:59 Intake Total 4500 4700 1000 Output Total 2050 1750 250 Balance 2450 2950 750 Weight 114.9 kg 118.5 kg Results Laboratory Results: 07/12/18 02:58 07/12/18 02:05 07/10/18 07/11/18 07/12/18 10:27 16:07 02:05 WBC 17.7 H 14.7 H RBC 3.03 L 2.54 L Hgb 9.2 L 7.6 L Hct 25.9 L 21.8 L MCV 86 86 MCH 30.3 29.8 MCHC 35.3 34.8 RDW 14.5 H 14.6 H Plt Count 145 L 122 L Seg Neutrophils % Lymphocytes % Monocytes % Eosinophils % Basophils % Absolute Neutrophils Absolute Lymphocytes Absolute Monocytes Absolute Eosinophils Absolute Basophils Sodium Potassium Chloride Carbon Dioxide Anion Gap BUN Creatinine Est GFR ( Amer) Est GFR (Non-Af Amer) Glucose Calcium Magnesium Blood Type B POSITIVE Antibody Screen NEGATIVE 07/12/18 07/12/18 02:05 02:58 WBC 13.9 H RBC 2.46 L Hgb 7.4 L Hct 21.0 L MCV 85 MCH 29.9 MCHC 35.0 RDW 14.7 H Plt Count 125 L Seg Neutrophils % Not Reportable Lymphocytes % Not Reportable Monocytes % Not Reportable Eosinophils % Not Reportable Basophils % Not Reportable Absolute Neutrophils Not Reportable Absolute Lymphocytes Not Reportable Absolute Monocytes Not Reportable Absolute Eosinophils Not Reportable Absolute Basophils Not Reportable Sodium 138.7 Potassium 4.0 Chloride 108 H Carbon Dioxide 21 L Anion Gap 10 BUN 14 Creatinine 0.71 Est GFR ( Amer) > 60 Est GFR (Non-Af Amer) > 60 Glucose 212 H Calcium 7.9 L Magnesium 1.6 Blood Type Antibody Screen 07/10/18 07/11/18 10:27 03:35 Troponin I 0.032 NT-Pro-B Natriuret Pep 45 Assessment and Plan - Diagnosis (1) GI bleeding Qualifiers: GI bleed type/associated pathology: unspecified gastrointestinal hemorrhage type Qualified Code(s): K92.2 - Gastrointestinal hemorrhage, unspecified Is this a current diagnosis for this admission?: Yes (2) Status post colectomy Is this a current diagnosis for this admission?: Yes Plan: POD #2, management per surgery. NG tube has been removed by surgery. He is having moderate incisional pain. He is refusing pain medicine presently. We wi ll get him out of bed continue to do incentive spirometry every hour while awake. (3) Acute blood loss anemia Is this a current diagnosis for this admission?: Yes Plan: As above in #1. (4) Diabetes mellitus Qualifiers: Diabetes mellitus type: type 2 Diabetes mellitus assisted insulin use: without truck terminal manager use Is this a current diagnosis for this admission?: Yes Plan: Patient is currently n.p.o. post op hemicolectomy Accu-Cheks every 6 hours with Humalog for sliding scale coverage and hypoglycemia protocol in place. (5) Diverticula of colon Is this a current diagnosis for this admission?: Yes (6) Hematochezia Is this a current diagnosis for this admission?: Yes Plan: Resolved. Secondary to diverticular bleed (7) Hyperlipidemia Is this a current diagnosis for this admission?: Yes Plan: Continue statin. (8) Hypotension Qualifiers: Hypotension type: other hypotension type Qualified Code(s): I95.89 - Other hypotension Is this a current diagnosis for this admission?: Yes Plan: Resolved, secondary to blood loss anemia. - Time Time Spent with patient: 25-34 minutes Total Critical Time (Minutes): 35 Medications reviewed and adjusted accordingly: Yes - Inpatient Certification Based on my medical assessment, after consideration of the patient's comorbidities, presenting symptoms, or acuity I expect that the services needed warrant INPATIENT care.: Yes I certify that my determination is in accordance with my understanding of Medicare's requirements for reasonable and necessary INPATIENT services [42 CFR 412.3e].: Yes Medical Necessity: Need For IV Fluids, Need For Continuous Telemetry Monitoring, Need for Pain Control, Need for Surgery, Risk of Complication if Not Cared For in Hospital
[2018-07-12] MEDS: PANTOPRAZOLE SODIUM 40 MG VIAL IV SCH (09:59)
[2018-07-12] MEDS: FUROSEMIDE INJ/PF 20 MG/2 ML SDV IV SCH ×2 (09:59→21:23)
[2018-07-12] MEDS ORDERED: ACETAMINOPHEN 325 MG TABLET ONE (10:26)
[2018-07-12] MEDS: ACETAMINOPHEN 325 MG TABLET PO PRN (10:30)
[2018-07-12 17:24] LABS: ABSOLUTE BASOPHILS # (AUTO) 0.1 10^3/uL (0.0-0.2); ABSOLUTE LYMPHOCYTES (AUTO) 2.3 10^3/uL (0.5-4.7); BASOPHILS % (AUTO) 0.4 % (0-2); EOSINOPHILS % (AUTO) 0.1 % (0-6); HEMATOCRIT 28.5 % (37.9-51.0); LYMPHOCYTES % (AUTO) 15.8 % (13-45); MEAN CORPUSCULAR HGB CONC 35.1 g/dL (32.0-36.0); MEAN CORPUSCULAR VOLUME 85 fl (80-97); PLATELET COUNT 115 10^3/uL (150-450); RED BLOOD COUNT 3.35 10^6/uL (4.35-5.55); RED CELL DISTRIBUTION WIDTH 14.7 % (11.5-14.0); SEGMENTED NEUTROPHILS % (AUTO) 76.7 % (42-78); TOTAL CELLS COUNTED % (AUTO) 100 %; WHITE BLOOD COUNT 14.4 10^3/uL (4.0-10.5)
[2018-07-12] MEDS: RINGERS SOLUTION,LACTATED 1,000 ML IV PRN (18:37)
[2018-07-13] MEDS: RINGERS SOLUTION,LACTATED 1,000 ML IV PRN (02:41)
[2018-07-13] MEDS: HYDROMORPHONE HCL INJ/PF 2 MG/ML AMPULE IV PRN (03:46)
[2018-07-13] MEDS: INSULIN LISPRO 100 UNIT/ML 3 ML VIAL SUBCUT SCH ×4 (05:43→22:13)
--- NOTE | 2018-07-13 08:53 | PDOC PROGRESS REPORT ---
Subjective Progress Note for:: 07/13/18 Subjective:: He is POD #3 after colectomy for diverticular bleed. He denies any chest pain, shortness of breath or dyspnea. He denies any cough. He is having some moderate incisional discomfort. He states he had some nausea earlier this morning none presently. He has been taking small amounts of clear liquids. He denies any other arthralgias or myalgias. Nursing report no other issues overnight. He states his bowels did move small amount. Remaining review of systems are negative. Reason For Visit: ABLA, LOWER GI BLEED Physical Exam Vital Signs: Temp Pulse Resp BP Pulse Ox 96.8 F L 106 H 16 113/66 96 07/13/18 07:26 07/13/18 07:26 07/13/18 07:26 07/13/18 07:26 07/13/18 07:26 Intake & Output 07/12/18 07/13/18 07/14/18 06:59 06:59 06:59 Intake Total 4700 2900 Output Total 1750 3650 Balance 2950 -750 Weight 118.5 kg 118.1 kg General appearance: PRESENT: no acute distress, obese, well-developed, well- nourished Head exam: PRESENT: atraumatic, normocephalic Eye exam: PRESENT: conjunctiva pink, EOMI, PERRLA. ABSENT: scleral icterus Ear exam: PRESENT: normal external ear exam Mouth exam: PRESENT: moist, tongue midline Neck exam: ABSENT: carotid bruit, JVD, lymphadenopathy, thyromegaly Respiratory exam: PRESENT: clear to auscultation shayne. ABSENT: rales, rhonchi, wheezes Cardiovascular exam: PRESENT: RRR. ABSENT: diastolic murmur, rubs, systolic murmur Pulses: PRESENT: normal carotid pulses, normal radial pulses Vascular exam: PRESENT: normal capillary refill GI/Abdominal exam: PRESENT: diminished bowel sounds, soft, tenderness - Along midline incision Rectal exam: PRESENT: deferred Extremities exam: PRESENT: full ROM, +1 edema - Pedal to knees Musculoskeletal exam: PRESENT: ambulatory, full ROM, normal inspection Neurological exam: PRESENT: alert, awake, oriented to person, oriented to place, oriented to time, oriented to situation, CN II-XII grossly intact. ABSENT: motor sensory deficit Psychiatric exam: PRESENT: appropriate affect, normal mood. ABSENT: homicidal ideation, suicidal ideation Skin exam: PRESENT: dry, intact, warm. ABSENT: cyanosis, rash Results Laboratory Results: 07/12/18 17:09 07/12/18 02:05 07/10/18 07/12/18 10:27 17:09 WBC 14.4 H RBC 3.35 L Hgb 10.0 L D Hct 28.5 L MCV 85 MCH 30.0 MCHC 35.1 RDW 14.7 H Plt Count 115 L Seg Neutrophils % 76.7 Lymphocytes % 15.8 Monocytes % 7.0 Eosinophils % 0.1 Basophils % 0.4 Absolute Neutrophils 11.0 H Absolute Lymphocytes 2.3 Absolute Monocytes 1.0 Absolute Eosinophils 0.0 Absolute Basophils 0.1 Blood Type B POSITIVE Antibody Screen NEGATIVE 07/10/18 07/11/18 10:27 03:35 Troponin I 0.032 NT-Pro-B Natriuret Pep 45 Assessment and Plan - Diagnosis (1) GI bleeding Qualifiers: GI bleed type/associated pathology: unspecified gastrointestinal hemorrhage type Qualified Code(s): K92.2 - Gastrointestinal hemorrhage, unspecified Is this a current diagnosis for this admission?: Yes Plan: Patient was found to have a diverticular bleed needing colectomy. He is postop day #3. He is had a total of 6 units packed red blood cells no further bleeding. (2) Status post colectomy Is this a current diagnosis for this admission?: Yes Plan: Postop day #3 (3) Acute blood loss anemia Is this a current diagnosis for this admission?: Yes Plan: As above in #1. (4) Diabetes mellitus Qualifiers: Diabetes mellitus type: type 2 Diabetes mellitus usp insulin use: without rodent exterminator use Is this a current diagnosis for this admission?: Yes Plan: Continue sliding scale for now. Starting clear liquids (5) Diverticula of colon Is this a current diagnosis for this admission?: Yes (6) Hematochezia Is this a current diagnosis for this admission?: Yes Plan: Resolved. (7) Hyperlipidemia Is this a current diagnosis for this admission?: Yes Plan: Continue statin. (8) Hypotension Qualifiers: Hypotension type: other hypotension type Qualified Code(s): I95.89 - Other hypotension Is this a current diagnosis for this admission?: Yes Plan: Resolved secondary to acute blood loss anemia - Time Time Spent with patient: 25-34 minutes Total Critical Time (Minutes): 25 Medications reviewed and adjusted accordingly: Yes Anticipated discharge: Home with Homehealth - Inpatient Certification Based on my medical assessment, after consideration of the patient's comorbidities, presenting symptoms, or acuity I expect that the services needed warrant INPATIENT care.: Yes I certify that my determination is in accordance with my understanding of Medicare's requirements for reasonable and necessary INPATIENT services [42 CFR 412.3e].: Yes Medical Necessity: Need for Surgery, Risk of Complication if Not Cared For in Hospital
[2018-07-13] MEDS ORDERED: DEXTROSE 50%-WATER 25 GM/50 ML DISP.SYRIN IV PRN (08:55)
[2018-07-13] MEDS: PANTOPRAZOLE SODIUM 40 MG VIAL IV SCH (09:08)
[2018-07-13] MEDS: FUROSEMIDE INJ/PF 20 MG/2 ML SDV IV SCH ×2 (09:08→22:13)
[2018-07-13] MEDS: OXYCODONE HCL IR 5 MG TABLET PO PRN ×2 (09:08→22:12)
[2018-07-13] MEDS: ONDANSETRON HCL INJ/PF 4 MG/2 ML SDV IV PRN (09:08)
[2018-07-13 09:17] LABS: ABSOLUTE BASOPHILS # (AUTO) 0.1 10^3/uL (0.0-0.2); ABSOLUTE EOSINOPHILS # (AUTO) 0.1 10^3/uL (0.0-0.6); ABSOLUTE MONOCYTES (AUTO) 0.9 10^3/uL (0.1-1.4); ABSOLUTE NEUT (AUTO) 9.5 10^3/uL (1.7-8.2); BASOPHILS % (AUTO) 0.6 % (0-2); EOSINOPHILS % (AUTO) 0.8 % (0-6); HEMATOCRIT 29.9 % (37.9-51.0); HEMOGLOBIN 10.7 g/dL (13.5-17.0); MEAN CORPUSCULAR HEMOGLOBIN 30.1 pg (27.0-33.4); MEAN CORPUSCULAR HGB CONC 35.9 g/dL (32.0-36.0); MEAN CORPUSCULAR VOLUME 84 fl (80-97); MONOCYTES % (AUTO) 7.4 % (3-13); PLATELET COUNT 141 10^3/uL (150-450); RED BLOOD COUNT 3.57 10^6/uL (4.35-5.55); RED CELL DISTRIBUTION WIDTH 14.8 % (11.5-14.0); SEGMENTED NEUTROPHILS % (AUTO) 75.2 % (42-78); TOTAL CELLS COUNTED % (AUTO) 100 %; WHITE BLOOD COUNT 12.7 10^3/uL (4.0-10.5)
--- NOTE | 2018-07-13 09:31 | PDOC PROGRESS REPORT ---
Subjective Progress Note for:: 07/13/18 Subjective:: feels ok bloated passed dark blood stool yesterday min flatus Reason For Visit: ABLA, LOWER GI BLEED Physical Exam Vital Signs: Temp Pulse Resp BP Pulse Ox 96.8 F L 106 H 16 113/66 96 07/13/18 07:26 07/13/18 07:26 07/13/18 07:26 07/13/18 07:26 07/13/18 07:26 Intake & Output 07/12/18 07/13/18 07/14/18 06:59 06:59 06:59 Intake Total 4700 2900 794 Output Total 1750 3650 Balance 2950 -750 794 Weight 118.5 kg 118.1 kg General appearance: PRESENT: no acute distress Head exam: PRESENT: normocephalic Eye exam: PRESENT: EOMI Neck exam: PRESENT: full ROM Respiratory exam: PRESENT: clear to auscultation shayne Cardiovascular exam: PRESENT: RRR, tachycardia Pulses: PRESENT: normal radial pulses, normal femoral pulses Vascular exam: PRESENT: normal capillary refill GI/Abdominal exam: PRESENT: soft - decreased bowel sounds Rectal exam: PRESENT: deferred Gentrourinary exam: PRESENT: indwelling catheter Extremities exam: PRESENT: full ROM Musculoskeletal exam: PRESENT: full ROM Neurological exam: PRESENT: alert, awake, oriented to person, oriented to place, oriented to time, oriented to situation Psychiatric exam: PRESENT: appropriate affect Skin exam: PRESENT: dry Results Laboratory Results: 07/13/18 09:10 07/10/18 07/12/18 07/13/18 10:27 17:09 09:10 WBC 14.4 H 12.7 H RBC 3.35 L 3.57 L Hgb 10.0 L D 10.7 L Hct 28.5 L 29.9 L MCV 85 84 MCH 30.0 30.1 MCHC 35.1 35.9 RDW 14.7 H 14.8 H Plt Count 115 L 141 L Seg Neutrophils % 76.7 75.2 Lymphocytes % 15.8 16.0 Monocytes % 7.0 7.4 Eosinophils % 0.1 0.8 Basophils % 0.4 0.6 Absolute Neutrophils 11.0 H 9.5 H Absolute Lymphocytes 2.3 2.0 Absolute Monocytes 1.0 0.9 Absolute Eosinophils 0.0 0.1 Absolute Basophils 0.1 0.1 Blood Type B POSITIVE Antibody Screen NEGATIVE 07/10/18 07/11/18 10:27 03:35 Troponin I 0.032 NT-Pro-B Natriuret Pep 45 Assessment & Plan - Diagnosis (1) Diverticula of colon Is this a current diagnosis for this admission?: Yes (2) GI bleeding Qualifiers: GI bleed type/associated pathology: unspecified gastrointestinal hemorrhage type Qualified Code(s): K92.2 - Gastrointestinal hemorrhage, unspecified Is this a current diagnosis for this admission?: Yes - Plan Summary Plan Summary: s/p subtotal colectomy hct stable since 5pm,yesterday passed dark old blood yesterday tmax 101, vss plan dc bell today out of bed cont clears till passing more flatus ok to tx to reg nursing floor.
[2018-07-13 09:41] LABS: ANION GAP 6 (5-19); BLOOD UREA NITROGEN 9 mg/dL (7-20); CALCIUM 8.2 mg/dL (8.4-10.2); CARBON DIOXIDE 28 mmol/L (22-30); CHLORIDE 98 mmol/L (98-107); GLUCOSE 206 mg/dL (75-110); POTASSIUM 3.6 mmol/L (3.6-5.0)
[2018-07-13] MEDS: DOCUSATE SODIUM 100 MG CAPSULE PO SCH ×2 (14:00→18:25)
[2018-07-14] MEDS: ONDANSETRON HCL INJ/PF 4 MG/2 ML SDV IV PRN ×3 (03:14→22:08)
[2018-07-14 05:47] LABS: HEMATOCRIT 32.3 % (37.9-51.0); HEMOGLOBIN 11.3 g/dL (13.5-17.0); MEAN CORPUSCULAR HEMOGLOBIN 29.9 pg (27.0-33.4); MEAN CORPUSCULAR HGB CONC 35.1 g/dL (32.0-36.0); MEAN CORPUSCULAR VOLUME 85 fl (80-97); PLATELET COUNT 149 10^3/uL (150-450)
[2018-07-14 06:09] LABS: ANION GAP 11 (5-19); BLOOD UREA NITROGEN 10 mg/dL (7-20); CALCIUM 8.1 mg/dL (8.4-10.2); CARBON DIOXIDE 27 mmol/L (22-30); CHLORIDE 95 mmol/L (98-107); GLUCOSE 219 mg/dL (75-110)
[2018-07-14] MEDS: INSULIN LISPRO 100 UNIT/ML 3 ML VIAL SUBCUT SCH ×4 (07:43→22:00)
[2018-07-14] MEDS: PANTOPRAZOLE SODIUM 40 MG VIAL IV SCH (10:39)
[2018-07-14] MEDS: DOCUSATE SODIUM 100 MG CAPSULE PO SCH ×2 (10:39→17:03)
--- NOTE | 2018-07-14 12:29 | PDOC PROGRESS REPORT ---
Subjective Progress Note for:: 07/14/18 Subjective:: feels ok, wants to eat no bm some flatus yesterday Reason For Visit: ABLA, LOWER GI BLEED Physical Exam Vital Signs: Temp Pulse Resp BP Pulse Ox 99.6 F 110 H 18 134/66 H 97 07/14/18 12:00 07/14/18 12:00 07/14/18 12:00 07/14/18 12:00 07/14/18 12:00 Intake & Output 07/13/18 07/14/18 07/15/18 06:59 06:59 06:59 Intake Total 2900 1324 Output Total 3650 975 Balance -750 349 Weight 118.1 kg 117.5 kg General appearance: PRESENT: no acute distress Head exam: PRESENT: normocephalic Eye exam: PRESENT: EOMI Mouth exam: PRESENT: dry mucosa Neck exam: PRESENT: full ROM Respiratory exam: PRESENT: clear to auscultation shayne Cardiovascular exam: PRESENT: RRR Pulses: PRESENT: +2 pedal pulses bilateral GI/Abdominal exam: PRESENT: soft Rectal exam: PRESENT: deferred Musculoskeletal exam: PRESENT: full ROM Neurological exam: PRESENT: alert, awake, oriented to person, oriented to place Psychiatric exam: PRESENT: appropriate affect Results Laboratory Results: 07/14/18 04:16 07/14/18 04:16 07/14/18 07/14/18 04:16 04:16 WBC 8.0 RBC 3.80 L Hgb 11.3 L Hct 32.3 L MCV 85 MCH 29.9 MCHC 35.1 RDW 15.0 H Plt Count 149 L Sodium 133.0 L Potassium 4.0 Chloride 95 L Carbon Dioxide 27 Anion Gap 11 BUN 10 Creatinine 0.75 Est GFR ( Amer) > 60 Est GFR (Non-Af Amer) > 60 Glucose 219 H Calcium 8.1 L Magnesium 1.9 07/10/18 07/11/18 10:27 03:35 Troponin I 0.032 NT-Pro-B Natriuret Pep 45 Assessment & Plan - Diagnosis (1) Diverticula of colon Is this a current diagnosis for this admission?: Yes (2) GI bleeding Qualifiers: GI bleed type/associated pathology: unspecified gastrointestinal hemorrhage type Qualified Code(s): K92.2 - Gastrointestinal hemorrhage, unspecified Is this a current diagnosis for this admission?: Yes - Plan Summary Plan Summary: cont to improve no evidence of recurrent bleed hb increased today to 11 no further bloody bm's will slowly advance to full liquids awaiting return of bowel function
--- NOTE | 2018-07-14 13:57 | PDOC PROGRESS REPORT ---
Subjective Progress Note for:: 07/14/18 Subjective:: He is POD #4 after colectomy for diverticular bleed. He states he had a " rough night.." due to nausea vomiting. He denies any chest pain, shortness of breath or dyspnea. He denies any cough. He is having some moderate incisional discomfort. He has been taking small amounts of clear liquids. He denies any other arthralgias or myalgias. Nursing report no other issues overnight. He states his bowels did move small amount. Remaining review of systems are ne gative. Reason For Visit: ABLA, LOWER GI BLEED Physical Exam Vital Signs: Temp Pulse Resp BP Pulse Ox 99.6 F 110 H 18 134/66 H 97 07/14/18 12:00 07/14/18 12:00 07/14/18 12:00 07/14/18 12:00 07/14/18 12:00 Intake & Output 07/13/18 07/14/18 07/15/18 06:59 06:59 06:59 Intake Total 2900 1324 Output Total 3650 975 Balance -750 349 Weight 118.1 kg 117.5 kg General appearance: PRESENT: no acute distress, obese, well-developed, well-nourished Head exam: PRESENT: atraumatic, normocephalic Eye exam: PRESENT: conjunctiva pink, EOMI, PERRLA. ABSENT: scleral icterus Ear exam: PRESENT: normal external ear exam Mouth exam: PRESENT: moist, tongue midline Neck exam: ABSENT: carotid bruit, JVD, lymphadenopathy, thyromegaly Respiratory exam: PRESENT: clear to auscultation shayne, symmetrical, unlabored Cardiovascular exam: PRESENT: RRR. ABSENT: diastolic murmur, rubs, systolic murmur Pulses: PRESENT: normal carotid pulses, normal radial pulses Vascular exam: PRESENT: normal capillary refill GI/Abdominal exam: PRESENT: hypoactive bowel sounds, soft, tenderness - along midline incision. ABSENT: distended, guarding, mass, organolmegaly, rebound Rectal exam: PRESENT: deferred Extremities exam: PRESENT: full ROM. ABSENT: calf tenderness, clubbing, pedal edema Musculoskeletal exam: PRESENT: ambulatory, full ROM, normal inspection Neurological exam: PRESENT: alert, awake, oriented to person, oriented to place, oriented to time, oriented to situation, CN II-XII grossly intact. ABSENT: m otor sensory deficit Psychiatric exam: PRESENT: appropriate affect, normal mood. ABSENT: homicidal ideation, suicidal ideation Skin exam: PRESENT: dry, intact, warm. ABSENT: cyanosis, rash Results Laboratory Results: 07/14/18 04:16 07/14/18 04:16 07/14/18 07/14/18 04:16 04:16 WBC 8.0 RBC 3.80 L Hgb 11.3 L Hct 32.3 L MCV 85 MCH 29.9 MCHC 35.1 RDW 15.0 H Plt Count 149 L Sodium 133.0 L Potassium 4.0 Chloride 95 L Carbon Dioxide 27 Anion Gap 11 BUN 10 Creatinine 0.75 Est GFR ( Amer) > 60 Est GFR (Non-Af Amer) > 60 Glucose 219 H Calcium 8.1 L Magnesium 1.9 07/10/18 07/11/18 10:27 03:35 Troponin I 0.032 NT-Pro-B Natriuret Pep 45 Assessment and Plan - Diagnosis (1) GI bleeding Qualifiers: GI bleed type/associated pathology: unspecified gastrointestinal hemorrhage type Qualified Code(s): K92.2 - Gastrointestinal hemorrhage, unspecified Is this a current diagnosis for this admission?: Yes Plan: No further bleeding. Hemoglobin is up to 11.1 today. He required a total of 6 units of packed red blood cells. (2) Status post colectomy Is this a current diagnosis for this admission?: Yes Plan: Postop day #[address] Garrett. He is following as well. Patient has slow return of bowel function. He did have one small bowel movement. Bowels remain hypoactive. Hopefully he can increase his activity today start ambulating with nursing staff. (3) Acute blood loss anemia Is this a current diagnosis for this admission?: Yes Plan: As above in #1. (4) Diabetes mellitus Qualifiers: Diabetes mellitus type: type 2 Diabetes mellitus skilled nursing insulin use: without adjunct faculty for medical terminology use Is this a current diagnosis for this admission?: Yes Plan: Continue sliding scale for now. He is on clear liquid diet present time. He did vomit last night. (5) Diverticula of colon Is this a current diagnosis for this admission?: Yes (6) Hematochezia Is this a current diagnosis for this admission?: Yes Plan: Resolved. (7) Hyperlipidemia Is this a current diagnosis for this admission?: Yes Plan: Continue statin. (8) Hypotension Qualifiers: Hypotension type: other hypotension type Qualified Code(s): I95.89 - Other hypotension Is this a current diagnosis for this admission?: Yes Plan: Resolved secondary to acute blood loss anemia - Time Time Spent with patient: 25-34 minutes Total Critical Time (Minutes): 25 Medications reviewed and adjusted accordingly: Yes Anticipated discharge: Home - Inpatient Certification Based on my medical assessment, after consideration of the patient's comorbidities, presenting symptoms, or acuity I expect that the services needed warrant INPATIENT care.: Yes I certify that my determination is in accordance with my understanding of Medicare's requirements for reasonable and necessary INPATIENT services [42 CFR 412.3e].: Yes Medical Necessity: Need for Pain Control, Need for Surgery, Risk of Complication if Not Cared For in Hospital
[2018-07-14] MEDS: ACETAMINOPHEN 325 MG TABLET PO PRN ×2 (15:29→19:46)
[2018-07-14] MEDS: OXYCODONE HCL IR 5 MG TABLET PO PRN (22:08)
[2018-07-15] MEDS ORDERED: PROMETHAZINE HCL 25 MG TABLET ONE (02:23)
[2018-07-15] MEDS ORDERED: PROMETHAZINE HCL 25 MG TABLET PO ONE (02:30)
[2018-07-15] MEDS: INSULIN LISPRO 100 UNIT/ML 3 ML VIAL SUBCUT SCH ×4 (07:22→22:25)
[2018-07-15] MEDS ORDERED: BISACODYL 10 MG SUPP.RECT PR ONE (07:37)
--- NOTE | 2018-07-15 07:41 | PDOC PROGRESS REPORT ---
Subjective Progress Note for:: 07/15/18 Subjective:: had nausea,vomiting last pm no flatus Reason For Visit: ABLA, LOWER GI BLEED Physical Exam Vital Signs: Temp Pulse Resp BP Pulse Ox 98.8 F 112 H 17 138/76 H 100 07/15/18 03:52 07/15/18 03:52 07/15/18 03:52 07/15/18 03:52 07/15/18 03:52 Intake & Output 07/14/18 07/15/18 07/16/18 06:59 06:59 06:59 Intake Total 1324 852 Output Total 975 Balance 349 852 Weight 117.5 kg 118.1 kg General appearance: PRESENT: no acute distress Head exam: PRESENT: normocephalic Eye exam: PRESENT: conjunctiva pink Mouth exam: PRESENT: moist Neck exam: PRESENT: full ROM Respiratory exam: PRESENT: clear to auscultation shayne Cardiovascular exam: PRESENT: RRR Pulses: PRESENT: normal radial pulses, normal femoral pulses GI/Abdominal exam: PRESENT: distended, hypoactive bowel sounds Rectal exam: PRESENT: deferred Extremities exam: PRESENT: full ROM Musculoskeletal exam: PRESENT: full ROM Neurological exam: PRESENT: alert, awake, oriented to time, oriented to situation Psychiatric exam: PRESENT: appropriate affect Results Laboratory Results: 07/14/18 04:16 07/14/18 04:16 07/10/18 07/11/18 10:27 03:35 Troponin I 0.032 NT-Pro-B Natriuret Pep 45 Assessment & Plan - Diagnosis (1) Diverticula of colon Is this a current diagnosis for this admission?: Yes (2) GI bleeding Qualifiers: GI bleed type/associated pathology: unspecified gastrointestinal hemorrhage type Qualified Code(s): K92.2 - Gastrointestinal hemorrhage, unspecified Is this a current diagnosis for this admission?: Yes - Plan Summary Plan Summary: afeb vss c/o nausea, bloating no flatus yesterday did not eat much of full liquids this am abd tympanitic plan decrease diet to sips of clears increase activity dulcolax suppositiory await return of bowel function
[2018-07-15 08:18] LABS: ABSOLUTE EOSINOPHILS # (AUTO) 0.1 10^3/uL (0.0-0.6); ABSOLUTE LYMPHOCYTES (AUTO) 0.9 10^3/uL (0.5-4.7); ABSOLUTE MONOCYTES (AUTO) 0.8 10^3/uL (0.1-1.4); ABSOLUTE NEUT (AUTO) 4.6 10^3/uL (1.7-8.2); BASOPHILS % (AUTO) 0.2 % (0-2); EOSINOPHILS % (AUTO) 1.9 % (0-6); HEMATOCRIT 29.5 % (37.9-51.0); HEMOGLOBIN 10.4 g/dL (13.5-17.0); LYMPHOCYTES % (AUTO) 13.7 % (13-45); MEAN CORPUSCULAR HEMOGLOBIN 29.8 pg (27.0-33.4); MEAN CORPUSCULAR HGB CONC 35.1 g/dL (32.0-36.0); MEAN CORPUSCULAR VOLUME 85 fl (80-97); MONOCYTES % (AUTO) 12.6 % (3-13); PLATELET COUNT 232 10^3/uL (150-450); RED BLOOD COUNT 3.48 10^6/uL (4.35-5.55); RED CELL DISTRIBUTION WIDTH 14.4 % (11.5-14.0); SEGMENTED NEUTROPHILS % (AUTO) 71.6 % (42-78); TOTAL CELLS COUNTED % (AUTO) 100 %; WHITE BLOOD COUNT 6.4 10^3/uL (4.0-10.5)
[2018-07-15 08:32] LABS: BLOOD UREA NITROGEN 14 mg/dL (7-20); CHLORIDE 91 mmol/L (98-107); GLUCOSE 227 mg/dL (75-110); POTASSIUM 3.3 mmol/L (3.6-5.0); SODIUM 133.3 mmol/L (137-145)
[2018-07-15 08:34] LABS: ANION GAP 13 (5-19); CARBON DIOXIDE 29 mmol/L (22-30)
[2018-07-15] MEDS: PANTOPRAZOLE SODIUM 40 MG VIAL IV SCH (10:53)
[2018-07-15] MEDS: ONDANSETRON HCL INJ/PF 4 MG/2 ML SDV IV PRN ×2 (10:53→18:32)
[2018-07-15] MEDS: DOCUSATE SODIUM 100 MG CAPSULE PO SCH ×2 (11:02→17:57)
[2018-07-15] MEDS: POTASSI CL 20 MEQ/50 ML RIDER 20 MEQ/50 ML RTUPB IV SCH ×2 (14:14→16:56)
--- NOTE | 2018-07-15 16:44 | PDOC PROGRESS REPORT ---
Subjective Progress Note for:: 07/15/18 Subjective:: He is POD #4 after colectomy for diverticular bleed. Patient was seen on morning rounds. He was found resting in bed on room air. He appeared to be uncomfortable and does confirm that he is feeling nauseated without emesis at this time; does continue to tolerate small sips of clear liquids. He confirms continued abdominal discomfort and constipation. He does report that he had a fever yesterday evening but none overnight. ROS is otherwise negative. No concerns per nursing. Reason For Visit: ABLA, LOWER GI BLEED Physical Exam Vital Signs: Temp Pulse Resp BP Pulse Ox 99.5 F 110 H 18 143/69 H 95 07/15/18 11:19 07/15/18 11:19 07/15/18 11:19 07/15/18 11:19 07/15/18 11:19 Intake & Output 07/14/18 07/15/18 07/16/18 06:59 06:59 06:59 Intake Total 1324 852 Output Total 975 Balance 349 852 Weight 117.5 kg 118.1 kg General appearance: PRESENT: no acute distress, cooperative, obese, well-developed, well-nourished Head exam: PRESENT: atraumatic, normocephalic Eye exam: PRESENT: conjunctiva pink, EOMI, PERRLA. ABSENT: scleral icterus Ear exam: PRESENT: normal external ear exam Mouth exam: PRESENT: moist, tongue midline Neck exam: ABSENT: carotid bruit, JVD, lymphadenopathy, thyromegaly Respiratory exam: PRESENT: clear to auscultation shayne, symmetrical, unlabored. ABSENT: rales, rhonchi, wheezes Cardiovascular exam: PRESENT: RRR. ABSENT: diastolic murmur, rubs, systolic murmur Pulses: PRESENT: normal dorsalis pedis pul Vascular exam: PRESENT: normal capillary refill GI/Abdominal exam: PRESENT: diminished bowel sounds, soft, tenderness. ABSENT: guarding, mass, organolmegaly, rebound Rectal exam: PRESENT: deferred Extremities exam: PRESENT: full ROM. ABSENT: calf tenderness, clubbing, pedal edema Neurological exam: PRESENT: alert, awake, oriented to person, oriented to place, oriented to time, oriented to situation, CN II-XII grossly intact. ABSENT: mot or sensory deficit Psychiatric exam: PRESENT: appropriate affect, normal mood. ABSENT: homicidal ideation, suicidal ideation Skin exam: PRESENT: dry, intact, warm. ABSENT: cyanosis, rash Results Laboratory Results: 07/15/18 08:00 07/15/18 08:00 07/15/18 07/15/18 08:00 08:00 WBC 6.4 RBC 3.48 L Hgb 10.4 L Hct 29.5 L MCV 85 MCH 29.8 MCHC 35.1 RDW 14.4 H Plt Count 232 Seg Neutrophils % 71.6 Lymphocytes % 13.7 Monocytes % 12.6 Eosinophils % 1.9 Basophils % 0.2 Absolute Neutrophils 4.6 Absolute Lymphocytes 0.9 Absolute Monocytes 0.8 Absolute Eosinophils 0.1 Absolute Basophils 0.0 Sodium 133.3 L Potassium 3.3 L Chloride 91 L Carbon Dioxide 29 Anion Gap 13 BUN 14 Creatinine 0.86 Est GFR ( Amer) > 60 Est GFR (Non-Af Amer) > 60 Glucose 227 H Calcium 8.0 L 07/10/18 07/11/18 10:27 03:35 Troponin I 0.032 NT-Pro-B Natriuret Pep 45 Assessment and Plan - Diagnosis (1) GI bleeding Qualifiers: GI bleed type/associated pathology: unspecified gastrointestinal hemorrhage type Qualified Code(s): K92.2 - Gastrointestinal hemorrhage, unspecified Is this a current diagnosis for this admission?: Yes Plan: No further bleeding. Hemoglobin is up to 10.4 today. Secondary to diverticular bleed. He required a total of 6 units of packed red blood cells. (2) Acute blood loss anemia Is this a current diagnosis for this admission?: Yes Plan: As above in #1. (3) Diabetes mellitus Qualifiers: Diabetes mellitus type: type 2 Diabetes mellitus senior living insulin use: without longwall foreman use Is this a current diagnosis for this admission?: Yes Plan: Accu-Cheks before meals and at bedtime with Humalog for sliding scale coverage. He is on clear liquid diet present time. Hypoglycemia protocol (4) Hypertension Is this a current diagnosis for this admission?: Yes Plan: Patient reports history of hypertension; typically utilizes lisinopril at home. Holding home dose lisinopril at this time; likely to resume prior to discharge. (5) Hyperlipidemia Is this a current diagnosis for this admission?: Yes Plan: Continue statin. (6) Hypotension Qualifiers: Hypotension type: other hypotension type Qualified Code(s): I95.89 - Other hypotension Is this a current diagnosis for this admission?: Yes Plan: Resolved secondary to acute blood loss anemia (7) Syncope and collapse Is this a current diagnosis for this admission?: Yes Plan: Secondary to hypotension and possible vasovagal response and patient with acute blood loss anemia secondary to active GI bleeding. The patient had a syncopal event while sitting on the commode, without fall or injury. Per ED provider the patient was witnessed to be tachycardic, hypotensive, pale and diaphoretic with snoring respirations. This improved with return to the bed and aggressive IV fluids. A second syncopal event, witnessed by his , occurred when the patient got up independently to use a bedside commode. At that time he did fall to the floor, without reported injury. Fall precautions. Management as above. (8) Diverticula of colon Is this a current diagnosis for this admission?: Yes (9) Status post colectomy Is this a current diagnosis for this admission?: Yes Plan: Postop day #[address] Garrett. He is following as well. Patient has slow return of bowel function. He did have one small bowel movement yesterday. Bowels remain hypoactive. With nausea and vomiting; nursing reports that Dr. Garrett is aware and monitoring for need for NG tube placement. Encouraged patient to get out of bed twice daily with assistance. (10) Hypokalemia Is this a current diagnosis for this admission?: Yes Plan: Secondary to poor p.o. intake and emesis. Have replaced with K riders. Daily chemistry; continue to replace as indicated. - Time Time Spent with patient: 15-24 minutes Medications reviewed and adjusted accordingly: Yes Anticipated discharge: SNF - Short-term rehab versus home with home health
[2018-07-15] MEDS: ACETAMINOPHEN 325 MG TABLET PO PRN (18:56)
[2018-07-15] MEDS: NORMAL SALINE 1000 ML 1,000 ML IV PRN (22:29)
[2018-07-16] MEDS: ONDANSETRON HCL INJ/PF 4 MG/2 ML SDV IV PRN ×2 (03:51→09:52)
[2018-07-16 05:54] LABS: HEMATOCRIT 27.6 % (37.9-51.0); HEMOGLOBIN 9.5 g/dL (13.5-17.0); MEAN CORPUSCULAR HEMOGLOBIN 29.2 pg (27.0-33.4); MEAN CORPUSCULAR HGB CONC 34.3 g/dL (32.0-36.0); MEAN CORPUSCULAR VOLUME 85 fl (80-97); PLATELET COUNT 205 10^3/uL (150-450); RED BLOOD COUNT 3.24 10^6/uL (4.35-5.55); RED CELL DISTRIBUTION WIDTH 14.3 % (11.5-14.0); WHITE BLOOD COUNT 5.7 10^3/uL (4.0-10.5)
[2018-07-16 06:20] LABS: ANION GAP 14 (5-19); BLOOD UREA NITROGEN 16 mg/dL (7-20); CALCIUM 7.8 mg/dL (8.4-10.2); CARBON DIOXIDE 27 mmol/L (22-30); CHLORIDE 92 mmol/L (98-107); GLUCOSE 217 mg/dL (75-110); PHOSPHORUS 3.1 mg/dL (2.5-4.5); POTASSIUM 3.6 mmol/L (3.6-5.0); SODIUM 133.3 mmol/L (137-145)
--- NOTE | 2018-07-16 07:39 | PDOC PROGRESS REPORT ---
Subjective Progress Note for:: 07/16/18 Subjective:: FEELS OK, VOMITED LAST PM Reason For Visit: ABLA, LOWER GI BLEED Physical Exam Vital Signs: Temp Pulse Resp BP Pulse Ox 98.9 F 95 15 144/78 H 99 07/16/18 04:00 07/16/18 04:00 07/16/18 04:00 07/16/18 04:00 07/16/18 04:00 Intake & Output 07/15/18 07/16/18 07/17/18 06:59 06:59 06:59 Intake Total 852 522 Output Total 500 Balance 852 22 Weight 118.1 kg 118.9 kg General appearance: PRESENT: no acute distress Head exam: PRESENT: normocephalic Eye exam: PRESENT: EOMI Mouth exam: PRESENT: dry mucosa Neck exam: PRESENT: full ROM Respiratory exam: PRESENT: clear to auscultation shayne Cardiovascular exam: PRESENT: RRR Pulses: PRESENT: +2 pedal pulses bilateral GI/Abdominal exam: PRESENT: soft, other - NL BOWEL SOUNDS Gentrourinary exam: PRESENT: other Extremities exam: PRESENT: full ROM Musculoskeletal exam: PRESENT: full ROM Neurological exam: PRESENT: alert, awake, oriented to person, oriented to place, oriented to time, oriented to situation Psychiatric exam: PRESENT: appropriate affect Results Laboratory Results: 07/16/18 05:42 07/16/18 05:42 07/15/18 07/15/18 07/16/18 08:00 08:00 05:42 WBC 6.4 5.7 RBC 3.48 L 3.24 L Hgb 10.4 L 9.5 L Hct 29.5 L 27.6 L MCV 85 85 MCH 29.8 29.2 MCHC 35.1 34.3 RDW 14.4 H 14.3 H Plt Count 232 205 Seg Neutrophils % 71.6 Lymphocytes % 13.7 Monocytes % 12.6 Eosinophils % 1.9 Basophils % 0.2 Absolute Neutrophils 4.6 Absolute Lymphocytes 0.9 Absolute Monocytes 0.8 Absolute Eosinophils 0.1 Absolute Basophils 0.0 Sodium 133.3 L Potassium 3.3 L Chloride 91 L Carbon Dioxide 29 Anion Gap 13 BUN 14 Creatinine 0.86 Est GFR ( Amer) > 60 Est GFR (Non-Af Amer) > 60 Glucose 227 H Calcium 8.0 L Phosphorus Magnesium 07/16/18 05:42 WBC RBC Hgb Hct MCV MCH MCHC RDW Plt Count Seg Neutrophils % Lymphocytes % Monocytes % Eosinophils % Basophils % Absolute Neutrophils Absolute Lymphocytes Absolute Monocytes Absolute Eosinophils Absolute Basophils Sodium 133.3 L Potassium 3.6 Chloride 92 L Carbon Dioxide 27 Anion Gap 14 BUN 16 Creatinine 0.80 Est GFR ( Amer) > 60 Est GFR (Non-Af Amer) > 60 Glucose 217 H Calcium 7.8 L Phosphorus 3.1 Magnesium 2.1 07/10/18 07/11/18 10:27 03:35 Troponin I 0.032 NT-Pro-B Natriuret Pep 45 Assessment & Plan - Diagnosis (1) Diverticula of colon Is this a current diagnosis for this admission?: Yes (2) GI bleeding Qualifiers: GI bleed type/associated pathology: unspecified gastrointestinal hemorrhage type Qualified Code(s): K92.2 - Gastrointestinal hemorrhage, unspecified Is this a current diagnosis for this admission?: Yes - Plan Summary Plan Summary: PASSES SMALL AMTS OF STOOL/BLOOD AND LARGE AMTS OF FLATUS VOMITED LAST PM THIS AM FEELS BETTER PASSING FLATUS ABD SOFTLY DISTENDED +BS PLAN CONT CURRENT RX CONT SIPS OF CLEARS AWAITING RETURN OF BOWEL FUNCTION
[2018-07-16] MEDS: INSULIN LISPRO 100 UNIT/ML 3 ML VIAL SUBCUT SCH ×4 (08:33→22:11)
[2018-07-16] MEDS: DOCUSATE SODIUM 100 MG CAPSULE PO SCH ×2 (09:52→17:31)
[2018-07-16] MEDS: ACETAMINOPHEN 325 MG TABLET PO PRN (16:01)
[2018-07-16] MEDS: OXYCODONE HCL IR 5 MG TABLET PO PRN (16:02)
[2018-07-16] MEDS: NORMAL SALINE 1000 ML 1,000 ML IV PRN (16:05)
[2018-07-17 07:47] LABS: ABSOLUTE EOSINOPHILS # (AUTO) 0.3 10^3/uL (0.0-0.6); ABSOLUTE LYMPHOCYTES (AUTO) 1.2 10^3/uL (0.5-4.7); ABSOLUTE MONOCYTES (AUTO) 1.3 10^3/uL (0.1-1.4); ABSOLUTE NEUT (AUTO) 7.9 10^3/uL (1.7-8.2); ABSOLUTE RETICS # 0.123 10^6/uL (0.028-0.122); ANION GAP 11 (5-19); BASOPHILS % (AUTO) 0.2 % (0-2); BLOOD UREA NITROGEN 13 mg/dL (7-20); CALCIUM 7.5 mg/dL (8.4-10.2); CARBON DIOXIDE 30 mmol/L (22-30); CHLORIDE 92 mmol/L (98-107); EOSINOPHILS % (AUTO) 2.7 % (0-6); GLUCOSE 168 mg/dL (75-110); HEMATOCRIT 24.8 % (37.9-51.0); HEMOGLOBIN 8.7 g/dL (13.5-17.0); LYMPHOCYTES % (AUTO) 11.1 % (13-45); MEAN CORPUSCULAR HEMOGLOBIN 29.5 pg (27.0-33.4); MEAN CORPUSCULAR VOLUME 85 fl (80-97); MONOCYTES % (AUTO) 11.9 % (3-13); PLATELET COUNT 247 10^3/uL (150-450); POTASSIUM 3.2 mmol/L (3.6-5.0); RED BLOOD COUNT 2.93 10^6/uL (4.35-5.55); RED CELL DISTRIBUTION WIDTH 14.5 % (11.5-14.0); SEGMENTED NEUTROPHILS % (AUTO) 74.1 % (42-78); SODIUM 133.1 mmol/L (137-145); TOTAL CELLS COUNTED % (AUTO) 100 %; WHITE BLOOD COUNT 10.6 10^3/uL (4.0-10.5)
--- NOTE | 2018-07-17 08:20 | PDOC PROGRESS REPORT ---
Subjective Progress Note for:: 07/17/18 Subjective:: s/p colectomy for gi bleed. Reason For Visit: ABLA, LOWER GI BLEED Physical Exam Vital Signs: Temp Pulse Resp BP Pulse Ox 98.3 F 95 19 138/66 H 96 07/17/18 03:49 07/17/18 07:00 07/17/18 03:49 07/17/18 03:49 07/17/18 03:49 Intake & Output 07/16/18 07/17/18 07/18/18 06:59 06:59 06:59 Intake Total 522 880 Output Total 500 Balance 22 880 Weight 118.9 kg 107.7 kg General appearance: PRESENT: no acute distress Head exam: PRESENT: normocephalic Eye exam: PRESENT: EOMI Neck exam: PRESENT: full ROM Respiratory exam: PRESENT: clear to auscultation shayne Cardiovascular exam: PRESENT: RRR Pulses: PRESENT: +2 pedal pulses bilateral GI/Abdominal exam: PRESENT: normal bowel sounds, soft Rectal exam: PRESENT: deferred Extremities exam: PRESENT: full ROM Musculoskeletal exam: PRESENT: full ROM Neurological exam: PRESENT: alert, altered, awake, oriented to person, oriented to place Psychiatric exam: PRESENT: appropriate affect Skin exam: PRESENT: dry Results Laboratory Results: 07/17/18 07:10 07/17/18 07:10 WBC 10.6 H RBC 2.93 L Hgb 8.7 L Hct 24.8 L MCV 85 MCH 29.5 MCHC 35.0 RDW 14.5 H Plt Count 247 Seg Neutrophils % 74.1 Lymphocytes % 11.1 L Monocytes % 11.9 Eosinophils % 2.7 Basophils % 0.2 Absolute Neutrophils 7.9 Absolute Lymphocytes 1.2 Absolute Monocytes 1.3 Absolute Eosinophils 0.3 Absolute Basophils 0.0 Retic Count (auto) 4.20 H Absolute Retic 0.123 H 07/10/18 07/11/18 10:27 03:35 Troponin I 0.032 NT-Pro-B Natriuret Pep 45 Assessment & Plan - Diagnosis (1) Diverticula of colon Is this a current diagnosis for this admission?: Yes (2) GI bleeding Qualifiers: GI bleed type/associated pathology: unspecified gastrointestinal hemorrhage type Qualified Code(s): K92.2 - Gastrointestinal hemorrhage, unspecified Is this a current diagnosis for this admission?: Yes - Plan Summary Plan Summary: doing better no further vomiting passing dark stool/diarrhea, no blood hct sl decreased today 24.7 no obvious continured gi bleed plan will restart full liquids
[2018-07-17 09:03] LABS: IRON(TIBC) < 10.1 ug/dL (49-181)
[2018-07-17] MEDS: INSULIN LISPRO 100 UNIT/ML 3 ML VIAL SUBCUT SCH ×5 (09:24→21:45)
[2018-07-17] MEDS: DOCUSATE SODIUM 100 MG CAPSULE PO SCH ×2 (09:25→17:20)
[2018-07-17] MEDS: ONDANSETRON HCL INJ/PF 4 MG/2 ML SDV IV PRN ×2 (15:23→21:34)
[2018-07-17] MEDS: OXYCODONE HCL IR 5 MG TABLET PO PRN ×2 (15:24→19:47)
[2018-07-17] MEDS: NORMAL SALINE 1000 ML 1,000 ML IV PRN (19:50)
[2018-07-18] MEDS: ACETAMINOPHEN 325 MG TABLET PO PRN ×2 (00:13→21:30)
--- NOTE | 2018-07-18 07:59 | PDOC PROGRESS REPORT ---
Subjective Progress Note for:: 07/18/18 Reason For Visit: ABLA, LOWER GI BLEED Physical Exam Vital Signs: Temp Pulse Resp BP Pulse Ox 101.6 F H 100 17 135/63 H 95 07/17/18 23:56 07/18/18 02:00 07/17/18 20:34 07/17/18 23:56 07/17/18 23:56 Intake & Output 07/17/18 07/18/18 07/19/18 06:59 06:59 06:59 Intake Total 880 1859 Balance 880 1859 Weight 107.7 kg 112.5 kg General appearance: PRESENT: no acute distress Head exam: PRESENT: normocephalic Eye exam: PRESENT: EOMI Mouth exam: PRESENT: moist Neck exam: PRESENT: full ROM Respiratory exam: PRESENT: clear to auscultation shayne Cardiovascular exam: PRESENT: RRR Pulses: PRESENT: normal radial pulses, normal femoral pulses GI/Abdominal exam: PRESENT: normal bowel sounds, soft Rectal exam: PRESENT: deferred Musculoskeletal exam: PRESENT: full ROM Neurological exam: PRESENT: alert, awake, oriented to person, oriented to place Psychiatric exam: PRESENT: appropriate affect Skin exam: PRESENT: dry Results Laboratory Results: 07/17/18 07:10 07/17/18 07:10 07/17/18 07:10 Sodium 133.1 L Potassium 3.2 L Chloride 92 L Carbon Dioxide 30 Anion Gap 11 BUN 13 Creatinine 0.78 Est GFR ( Amer) > 60 Est GFR (Non-Af Amer) > 60 Glucose 168 H Calcium 7.5 L Iron < 10.1 L TIBC 198 L % Saturation UNABLE TO CALCULATE Ferritin 252.00 Vitamin B12 > 1000.0 H Folate 14.80 07/10/18 07/11/18 10:27 03:35 Troponin I 0.032 NT-Pro-B Natriuret Pep 45 Assessment & Plan - Diagnosis (1) Diverticula of colon Is this a current diagnosis for this admission?: Yes (2) GI bleeding Qualifiers: GI bleed type/associated pathology: unspecified gastrointestinal hemorrhage type Qualified Code(s): K92.2 - Gastrointestinal hemorrhage, unspecified Is this a current diagnosis for this admission?: Yes - Plan Summary Plan Summary: s/p subtotal colectomy doing ok passing some bm, min flatus still with some bloating labs today pending cont full liquids till full return of bowel function check labs.
[2018-07-18] MEDS: INSULIN LISPRO 100 UNIT/ML 3 ML VIAL SUBCUT SCH ×4 (08:26→21:30)
[2018-07-18] MEDS: OXYCODONE HCL IR 5 MG TABLET PO PRN ×2 (08:27→21:29)
[2018-07-18] MEDS: NORMAL SALINE 1000 ML 1,000 ML IV PRN (09:49)
[2018-07-18] MEDS: DOCUSATE SODIUM 100 MG CAPSULE PO SCH ×2 (09:49→17:23)
[2018-07-18] MEDS ORDERED: NA PHOS,M-B/NA PHOS,DI-BA (ADULT) 133 ML ENEMA PR PRN (10:01)
[2018-07-18] MEDS ORDERED: BISACODYL 10 MG SUPP.RECT PR ONE (11:00)
[2018-07-18] MEDS: ONDANSETRON HCL INJ/PF 4 MG/2 ML SDV IV PRN (21:29)
--- NOTE | 2018-07-19 07:52 | PDOC PROGRESS REPORT ---
Subjective Progress Note for:: 07/19/18 Subjective:: feels better, passing stool and flatus Reason For Visit: ABLA, LOWER GI BLEED Physical Exam Vital Signs: Temp Pulse Resp BP Pulse Ox 98.3 F 104 H 17 132/57 H 98 07/19/18 03:47 07/19/18 03:47 07/19/18 03:47 07/19/18 03:47 07/19/18 03:47 Intake & Output 07/18/18 07/19/18 07/20/18 06:59 06:59 06:59 Intake Total 1859 3084 Balance 1859 3084 Weight 112.5 kg 109.4 kg General appearance: PRESENT: no acute distress Head exam: PRESENT: normocephalic Eye exam: PRESENT: EOMI Neck exam: PRESENT: full ROM Respiratory exam: PRESENT: clear to auscultation shayne Cardiovascular exam: PRESENT: RRR Pulses: PRESENT: normal radial pulses, normal femoral pulses GI/Abdominal exam: PRESENT: normal bowel sounds, soft Rectal exam: PRESENT: deferred Musculoskeletal exam: PRESENT: full ROM Neurological exam: PRESENT: alert, awake, oriented to person, oriented to place Psychiatric exam: PRESENT: appropriate affect Skin exam: PRESENT: dry Results Laboratory Results: 07/17/18 07:10 07/17/18 07:10 07/10/18 07/11/18 10:27 03:35 Troponin I 0.032 NT-Pro-B Natriuret Pep 45 Assessment & Plan - Diagnosis (1) Diverticula of colon Is this a current diagnosis for this admission?: Yes (2) GI bleeding Qualifiers: GI bleed type/associated pathology: unspecified gastrointestinal hemorrhage type Qualified Code(s): K92.2 - Gastrointestinal hemorrhage, unspecified Is this a current diagnosis for this admission?: Yes - Plan Summary Plan Summary: doing better now passign stool \wants to eat abd less bloated labs still pending will start soft diet. home iun 1-2 days.
[2018-07-19 09:36] LABS: ABSOLUTE EOSINOPHILS # (AUTO) 0.3 10^3/uL (0.0-0.6); ABSOLUTE LYMPHOCYTES (AUTO) 1.6 10^3/uL (0.5-4.7); ABSOLUTE MONOCYTES (AUTO) 1.4 10^3/uL (0.1-1.4); ABSOLUTE NEUT (AUTO) 12.9 10^3/uL (1.7-8.2); BASOPHILS % (AUTO) 0.2 % (0-2); EOSINOPHILS % (AUTO) 1.8 % (0-6); HEMATOCRIT 26.9 % (37.9-51.0); HEMOGLOBIN 9.1 g/dL (13.5-17.0); LYMPHOCYTES % (AUTO) 10.1 % (13-45); MEAN CORPUSCULAR HEMOGLOBIN 28.5 pg (27.0-33.4); MEAN CORPUSCULAR HGB CONC 33.6 g/dL (32.0-36.0); MEAN CORPUSCULAR VOLUME 85 fl (80-97); MONOCYTES % (AUTO) 8.4 % (3-13); PLATELET COUNT 378 10^3/uL (150-450); RED BLOOD COUNT 3.18 10^6/uL (4.35-5.55); RED CELL DISTRIBUTION WIDTH 14.9 % (11.5-14.0); SEGMENTED NEUTROPHILS % (AUTO) 79.5 % (42-78); TOTAL CELLS COUNTED % (AUTO) 100 %; WHITE BLOOD COUNT 16.2 10^3/uL (4.0-10.5)
[2018-07-19] MEDS: INSULIN LISPRO 100 UNIT/ML 3 ML VIAL SUBCUT SCH ×4 (09:51→21:57)
[2018-07-19 10:02] LABS: ANION GAP 12 (5-19); BLOOD UREA NITROGEN 9 mg/dL (7-20); CALCIUM 7.7 mg/dL (8.4-10.2); CARBON DIOXIDE 28 mmol/L (22-30); CHLORIDE 93 mmol/L (98-107); GLUCOSE 167 mg/dL (75-110); POTASSIUM 3.3 mmol/L (3.6-5.0); SODIUM 132.9 mmol/L (137-145)
[2018-07-19] MEDS: DOCUSATE SODIUM 100 MG CAPSULE PO SCH ×2 (10:27→17:09)
[2018-07-19] MEDS: NORMAL SALINE 1000 ML 1,000 ML IV PRN (10:28)
[2018-07-19] MEDS: ONDANSETRON HCL INJ/PF 4 MG/2 ML SDV IV PRN (10:32)
[2018-07-19] MEDS ORDERED: PROMETHAZINE HCL 25 MG TABLET PO PRN (11:39)
[2018-07-19] MEDS ORDERED: ONDANSETRON HCL INJ/PF 4 MG/2 ML SDV IV PRN (11:39)
--- NOTE | 2018-07-19 12:52 | RADIOLOGY REPORT (SQ) ---
EXAM DESCRIPTION: CHEST SINGLE VIEW COMPLETED DATE/TIME: 07/19/2018 12:37 pm REASON FOR STUDY: Assess for pneumonia COMPARISON: None. EXAM PARAMETERS: NUMBER OF VIEWS: One view. TECHNIQUE: Single frontal radiographic view of the chest acquired. RADIATION DOSE: NA LIMITATIONS: None. FINDINGS: LUNGS AND PLEURA: No opacities, masses or pneumothorax. No pleural effusion. MEDIASTINUM AND HILAR STRUCTURES: No masses. Contour normal. HEART AND VASCULAR STRUCTURES: Heart normal in size. Normal vasculature. BONES: No acute findings. HARDWARE: None in the chest. OTHER: No other significant finding. IMPRESSION: Low volume AP examination without acute abnormality of the lungs. No focal airspace [place]. TECHNICAL DOCUMENTATION: JOB ID: [id number] [employer]- All Rights Reserved Reading location - IP/workstation name: [email or web address]
[2018-07-19] MEDS ORDERED: IRON SUCROSE COMPLEX INJ/PF 100 MG/5 ML SDV IV ONE (14:00)
[2018-07-19] MEDS: POTASSIUM CHLORIDE 10 MEQ CAPSULE.ER PO SCH ×2 (14:00→21:56)
[2018-07-19 17:23] LABS: APPEARANCE,URINE SLIGHTLY-CLOUDY; BILIRUBIN,URINE NEGATIVE (NEGATIVE); COLOR,URINE AMBER; GLUCOSE, URINE NEGATIVE (NEGATIVE); KETONES,URINE 20 mg/dL (NEGATIVE); LEUKOCYTE ESTERASE,URINE NEGATIVE (NEGATIVE); NITRITE,URINE NEGATIVE (NEGATIVE); PROTEIN,URINE 100 mg/dL (NEGATIVE); URINE SPECIFIC GRAVITY 1.027
[2018-07-19] MEDS: OXYCODONE HCL IR 5 MG TABLET PO PRN ×2 (18:24→21:56)
--- NOTE | 2018-07-19 19:02 | PDOC PROGRESS REPORT ---
Subjective Progress Note for:: 07/16/18 Subjective:: Reports feeling better today. Still with little stool output. Reason For Visit: ABLA, LOWER GI BLEED Physical Exam Vital Signs: Temp Pulse Resp BP Pulse Ox 99.1 F 102 H 16 126/59 H 91 L 07/16/18 08:47 07/16/18 08:47 07/16/18 08:47 07/16/18 08:47 07/16/18 08:47 Intake & Output 07/15/18 07/16/18 07/17/18 06:59 06:59 06:59 Intake Total 852 522 Output Total 500 Balance 852 22 Weight 118.1 kg 118.9 kg General appearance: PRESENT: mild distress, well-developed Head exam: PRESENT: atraumatic, normocephalic Ear exam: PRESENT: normal external ear exam Respiratory exam: PRESENT: clear to auscultation shayne, symmetrical, unlabored. ABSENT: rales, rhonchi, wheezes Cardiovascular exam: PRESENT: +S1, +S2, systolic murmur - 2/6 GI/Abdominal exam: PRESENT: distended - And slightly tense. Very tympanitic., hypoactive bowel sounds, tenderness Gentrourinary exam: ABSENT: indwelling catheter Extremities exam: ABSENT: pedal edema Musculoskeletal exam: PRESENT: ambulatory Neurological exam: PRESENT: alert, awake, oriented to person, oriented to place, oriented to time, oriented to situation, CN II-XII grossly intact. ABSENT: motor sensory deficit Psychiatric exam: PRESENT: flat affect. ABSENT: agitated, anxious Focused psych exam: ABSENT: delusional, restlessness Skin exam: PRESENT: other - Midline abdominal incision clean and dry Results Laboratory Results: 07/16/18 05:42 07/16/18 05:42 07/16/18 07/16/18 05:42 05:42 WBC 5.7 RBC 3.24 L Hgb 9.5 L Hct 27.6 L MCV 85 MCH 29.2 MCHC 34.3 RDW 14.3 H Plt Count 205 Sodium 133.3 L Potassium 3.6 Chloride 92 L Carbon Dioxide 27 Anion Gap 14 BUN 16 Creatinine 0.80 Est GFR ( Amer) > 60 Est GFR (Non-Af Amer) > 60 Glucose 217 H Calcium 7.8 L Phosphorus 3.1 Magnesium 2.1 07/10/18 07/11/18 10:27 03:35 Troponin I 0.032 NT-Pro-B Natriuret Pep 45 Assessment and Plan - Diagnosis (1) GI bleeding Qualifiers: GI bleed type/associated pathology: diverticulosis Qualified Code(s): K57.91 - Diverticulosis of intestine, part unspecified, without perforation or abscess with bleeding Is this a current diagnosis for this admission?: Yes Plan: Patient was found to have bleeding likely from diverticula. He underwent partial colon resection. He continues to pass blood that is likely old. Continue to monitor hemoglobin. (2) Acute blood loss anemia Is this a current diagnosis for this admission?: Yes Plan: The patient has received a total of 6 units of packed red blood cells thus far. We will continue to monitor his hemoglobin and transfuse if indicated. 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 Most glucose readings are under 200. Once the patient starts taking a diet we will need to adjust. (4) Hyperlipidemia Qualifiers: Hyperlipidemia type: pure hypercholesterolemia Qualified Code(s): E78.00 - Pure hypercholesterolemia, unspecified; E78.0 - Pure hypercholesterolemia Is this a current diagnosis for this admission?: Yes Plan: Resume statin therapy when the patient is taking an oral diet. (5) Hypertension Qualifiers: Hypertension type: essential hypertension Qualified Code(s): I10 - Essential (primary) hypertension Is this a current diagnosis for this admission?: Yes Plan: Diastolic pressure slightly high. Continue to monitor. Resume blood pressure medications when the patient is taking an oral diet. (6) Syncope and collapse Is this a current diagnosis for this admission?: Yes Plan: The initial presentation to the hospital was for a syncopal event. The patient has not had any similar events during his hospitalization. (7) Diverticula of colon Is this a current diagnosis for this admission?: Yes Plan: Noted on colonoscopy and felt to be the cause of bleeding. Patient had a partial colon resection. (8) Status post colectomy Is this a current diagnosis for this admission?: Yes Plan: Successful surgery. No colostomy at this time. The patient is having issues with constipation. (9) Hypokalemia Is this a current diagnosis for this admission?: Yes Plan: Continue to monitor serum potassium and supplement accordingly. - Time Time Spent with patient: 15-24 minutes Medications reviewed and adjusted accordingly: Yes
--- NOTE | 2018-07-19 19:09 | PDOC PROGRESS REPORT ---
Subjective Progress Note for:: 07/17/18 Subjective:: Slightly less pain. He has been started on clear liquids. Reason For Visit: ABLA, LOWER GI BLEED Physical Exam Vital Signs: Temp Pulse Resp BP Pulse Ox 99.9 F 100 14 131/58 H 95 07/17/18 15:54 07/17/18 15:54 07/17/18 15:54 07/17/18 15:54 07/17/18 15:54 Intake & Output 07/16/18 07/17/18 07/18/18 06:59 06:59 06:59 Intake Total 105 443 2758 Output Total 500 Balance 22 880 1859 Weight 118.9 kg 107.7 kg 107.7 kg General appearance: PRESENT: cooperative, mild distress, well-developed Head exam: PRESENT: atraumatic, normocephalic Eye exam: PRESENT: conjunctiva pale Ear exam: PRESENT: normal external ear exam Respiratory exam: PRESENT: clear to auscultation shayne, symmetrical, unlabored. ABSENT: rales, rhonchi, tachypnea, wheezes Cardiovascular exam: PRESENT: RRR, +S1, +S2, systolic murmur - 2/6 GI/Abdominal exam: PRESENT: distended, soft, tenderness, other - Still tympanitic Rectal exam: PRESENT: deferred Extremities exam: ABSENT: pedal edema Musculoskeletal exam: PRESENT: ambulatory, normal inspection Neurological exam: PRESENT: alert, awake, oriented to person, oriented to place, oriented to time, oriented to situation, CN II-XII grossly intact. ABSENT: motor sensory deficit Psychiatric exam: PRESENT: flat affect. ABSENT: agitated, anxious Focused psych exam: ABSENT: delusional, restlessness Results Laboratory Results: 07/17/18 07:10 07/17/18 07:10 07/17/18 07/17/18 07:10 07:10 WBC 10.6 H RBC 2.93 L Hgb 8.7 L Hct 24.8 L MCV 85 MCH 29.5 MCHC 35.0 RDW 14.5 H Plt Count 247 Seg Neutrophils % 74.1 Lymphocytes % 11.1 L Monocytes % 11.9 Eosinophils % 2.7 Basophils % 0.2 Absolute Neutrophils 7.9 Absolute Lymphocytes 1.2 Absolute Monocytes 1.3 Absolute Eosinophils 0.3 Absolute Basophils 0.0 Retic Count (auto) 4.20 H Absolute Retic 0.123 H Sodium 133.1 L Potassium 3.2 L Chloride 92 L Carbon Dioxide 30 Anion Gap 11 BUN 13 Creatinine 0.78 Est GFR ( Amer) > 60 Est GFR (Non-Af Amer) > 60 Glucose 168 H Calcium 7.5 L Iron < 10.1 L TIBC 198 L % Saturation UNABLE TO CALCULATE Ferritin 252.00 Vitamin B12 > 1000.0 H Folate 14.80 07/10/18 07/11/18 10:27 03:35 Troponin I 0.032 NT-Pro-B Natriuret Pep 45 Assessment and Plan - Diagnosis (1) GI bleeding Qualifiers: GI bleed type/associated pathology: diverticulosis Qualified Code(s): K57.91 - Diverticulosis of intestine, part unspecified, without perforation or abscess with bleeding Is this a current diagnosis for this admission?: Yes Plan: Hemoglobin has been slowly decreasing. Still passing old blood. He may still be equilibrating. (2) Acute blood loss anemia Is this a current diagnosis for this admission?: Yes Plan: As noted above the hemoglobin continues to trickle down. We will try and avoid additional transfusion if possible. I will check iron studies. 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 Return to oral medications once his diet is restored. (4) Hypertension Qualifiers: Hypertension type: essential hypertension Qualified Code(s): I10 - Essential (primary) hypertension Is this a current diagnosis for this admission?: Yes (5) Hyperlipidemia Qualifiers: Hyperlipidemia type: pure hypercholesterolemia Qualified Code(s): E78.00 - Pure hypercholesterolemia, unspecified; E78.0 - Pure hypercholesterolemia Is this a current diagnosis for this admission?: Yes Plan: Return to statin therapy when oral diet is restored (6) Syncope and collapse Is this a current diagnosis for this admission?: Yes Plan: Likely from blood loss anemia. Resolved. (7) Diverticula of colon Is this a current diagnosis for this admission?: Yes Plan: The source of the bleeding was the diverticula. He is status post partial colectomy. (8) Hypokalemia Is this a current diagnosis for this admission?: Yes Plan: Continue to monitor serum potassium and replace by IV as indicated. (9) Status post colectomy Is this a current diagnosis for this admission?: Yes Plan: See surgical note. Patient is doing well. Still with constipation but the incision is healing nicely. - Time Time Spent with patient: 15-24 minutes Medications reviewed and adjusted accordingly: Yes
--- NOTE | 2018-07-19 19:13 | PDOC PROGRESS REPORT ---
Subjective Progress Note for:: 07/18/18 Subjective:: Feeling poorly today. Reason For Visit: ABLA, LOWER GI BLEED Physical Exam Vital Signs: Temp Pulse Resp BP Pulse Ox 98.6 F 95 20 132/68 H 97 07/19/18 07:26 07/19/18 07:26 07/19/18 07:26 07/19/18 07:26 07/19/18 07:26 Intake & Output 07/18/18 07/19/18 07/20/18 06:59 06:59 06:59 Intake Total 1859 3084 Balance 1859 3084 Weight 112.5 kg 109.4 kg General appearance: PRESENT: mild distress - Mild to moderate distress, well- developed Head exam: PRESENT: atraumatic, normocephalic Eye exam: PRESENT: conjunctiva pale. ABSENT: scleral icterus Ear exam: PRESENT: normal external ear exam Respiratory exam: PRESENT: clear to auscultation shayne, symmetrical, unlabored. ABSENT: rales, rhonchi, wheezes Cardiovascular exam: PRESENT: RRR, +S1, +S2, systolic murmur - 2/6 GI/Abdominal exam: PRESENT: distended, soft, tenderness - Limited to мария- incisional area, other - Tympanitic Rectal exam: PRESENT: deferred Gentrourinary exam: ABSENT: indwelling catheter Extremities exam: ABSENT: pedal edema Neurological exam: PRESENT: alert, awake, oriented to time, oriented to situation, CN II-XII grossly intact Psychiatric exam: PRESENT: flat affect. ABSENT: agitated, anxious Focused psych exam: ABSENT: delusional, restlessness Results Laboratory Results: 07/19/18 08:45 07/19/18 08:45 07/19/18 07/19/18 08:45 08:45 WBC 16.2 H RBC 3.18 L Hgb 9.1 L Hct 26.9 L MCV 85 MCH 28.5 MCHC 33.6 RDW 14.9 H Plt Count 378 Seg Neutrophils % 79.5 H Lymphocytes % 10.1 L Monocytes % 8.4 Eosinophils % 1.8 Basophils % 0.2 Absolute Neutrophils 12.9 H Absolute Lymphocytes 1.6 Absolute Monocytes 1.4 Absolute Eosinophils 0.3 Absolute Basophils 0.0 Sodium 132.9 L Potassium 3.3 L Chloride 93 L Carbon Dioxide 28 Anion Gap 12 BUN 9 Creatinine 0.67 Est GFR ( Amer) > 60 Est GFR (Non-Af Amer) > 60 Glucose 167 H Calcium 7.7 L 07/10/18 07/11/18 10:27 03:35 Troponin I 0.032 NT-Pro-B Natriuret Pep 45 Assessment and Plan - Diagnosis (1) GI bleeding Qualifiers: GI bleed type/associated pathology: diverticulosis Qualified Code(s): K57.91 - Diverticulosis of intestine, part unspecified, without perforation or abscess with bleeding Is this a current diagnosis for this admission?: Yes Plan: Hemoglobin still slightly lower he appears to have stopped passing old blood. (2) Acute blood loss anemia Is this a current diagnosis for this admission?: Yes Plan: Continue to monitor hemoglobin. He is close to needing a unit of packed red blood cells. His serum iron was low. I will order intravenous iron. (3) Diabetes mellitus Qualifiers: Diabetes mellitus type: type 2 Diabetes mellitus jail insulin use: without jail use Is this a current diagnosis for this admission?: Yes Plan: Still on a limited diet. Continue sliding scale for now. (4) Hyperlipidemia Qualifiers: Hyperlipidemia type: pure hypercholesterolemia Qualified Code(s): E78.00 - Pure hypercholesterolemia, unspecified; E78.0 - Pure hypercholesterolemia Is this a current diagnosis for this admission?: Yes Plan: Return to statin therapy when oral diet is restored (5) Hypertension Qualifiers: Hypertension type: essential hypertension Qualified Code(s): I10 - Essential (primary) hypertension Is this a current diagnosis for this admission?: Yes Plan: Diastolic pressure slightly high. Continue to monitor. Resume blood pressure medications when the patient is taking an oral diet. (6) Diverticula of colon Is this a current diagnosis for this admission?: Yes Plan: The source of the bleeding was the diverticula. He is status post partial colectomy. (7) Hypokalemia Is this a current diagnosis for this admission?: Yes Plan: Continue to monitor serum potassium and replace by IV as indicated. (8) Status post colectomy Is this a current diagnosis for this admission?: Yes Plan: See surgical note. Patient is doing well. Still with constipation but the incision is healing nicely. (9) Syncope and collapse Is this a current diagnosis for this admission?: Yes Plan: Likely from blood loss anemia. Resolved. - Time Time Spent with patient: 15-24 minutes Medications reviewed and adjusted accordingly: Yes
--- NOTE | 2018-07-19 19:18 | PDOC PROGRESS REPORT ---
Subjective Progress Note for:: 07/19/18 Subjective:: Feeling slightly better today. Still with intermittent nausea. Denies fever or chills. Does report some dysuria. Reason For Visit: ABLA, LOWER GI BLEED Physical Exam Vital Signs: Temp Pulse Resp BP Pulse Ox 98.6 F 95 20 132/68 H 97 07/19/18 07:26 07/19/18 07:26 07/19/18 07:26 07/19/18 07:26 07/19/18 07:26 Intake & Output 07/18/18 07/19/18 07/20/18 06:59 06:59 06:59 Intake Total 1859 3084 Balance 1859 3084 Weight 112.5 kg 109.4 kg General appearance: PRESENT: cooperative, mild distress Head exam: PRESENT: atraumatic, normocephalic Ear exam: PRESENT: normal external ear exam Respiratory exam: PRESENT: clear to auscultation shayne - Except left base, decreased breath sounds - Left base, symmetrical, unlabored. ABSENT: rales, rhonchi, tachypnea, wheezes Cardiovascular exam: PRESENT: RRR, +S1, +S2, systolic murmur - 1/6 GI/Abdominal exam: PRESENT: distended, normal bowel sounds, soft, tenderness - Mild. Mostly around the incision., other - Midline incision looks clean and dry Rectal exam: PRESENT: deferred Gentrourinary exam: ABSENT: indwelling catheter Extremities exam: ABSENT: pedal edema Neurological exam: PRESENT: alert, awake, oriented to person, oriented to place, oriented to time, oriented to situation, CN II-XII grossly intact. ABSENT: motor sensory deficit Psychiatric exam: PRESENT: flat affect. ABSENT: agitated, anxious Focused psych exam: ABSENT: delusional, restlessness Results Laboratory Results: 07/19/18 08:45 07/19/18 08:45 07/19/18 07/19/18 08:45 08:45 WBC 16.2 H RBC 3.18 L Hgb 9.1 L Hct 26.9 L MCV 85 MCH 28.5 MCHC 33.6 RDW 14.9 H Plt Count 378 Seg Neutrophils % 79.5 H Lymphocytes % 10.1 L Monocytes % 8.4 Eosinophils % 1.8 Basophils % 0.2 Absolute Neutrophils 12.9 H Absolute Lymphocytes 1.6 Absolute Monocytes 1.4 Absolute Eosinophils 0.3 Absolute Basophils 0.0 Sodium 132.9 L Potassium 3.3 L Chloride 93 L Carbon Dioxide 28 Anion Gap 12 BUN 9 Creatinine 0.67 Est GFR ( Amer) > 60 Est GFR (Non-Af Amer) > 60 Glucose 167 H Calcium 7.7 L 07/10/18 07/11/18 10:27 03:35 Troponin I 0.032 NT-Pro-B Natriuret Pep 45 Assessment and Plan - Diagnosis (1) GI bleeding Qualifiers: GI bleed type/associated pathology: diverticulosis Qualified Code(s): K57.91 - Diverticulosis of intestine, part unspecified, without perforation or abscess with bleeding Is this a current diagnosis for this admission?: Yes Plan: Hemoglobin is finally trending up on its own. (2) Acute blood loss anemia Is this a current diagnosis for this admission?: Yes Plan: As above. Serum iron was low as noted before. Start intravenous iron therapy. (3) Diabetes mellitus Qualifiers: Diabetes mellitus type: type 2 Diabetes mellitus intermediate project manager insulin use: without fci use Is this a current diagnosis for this admission?: Yes Plan: Still on a limited diet. Appetite varies. Continue sliding scale for now. (4) Hyperlipidemia Qualifiers: Hyperlipidemia type: pure hypercholesterolemia Qualified Code(s): E78.00 - Pure hypercholesterolemia, unspecified; E78.0 - Pure hypercholesterolemia Is this a current diagnosis for this admission?: Yes Plan: Diet is advancing. I will likely reinstitute statin therapy tomorrow. (5) Hypertension Qualifiers: Hypertension type: essential hypertension Qualified Code(s): I10 - Essential (primary) hypertension Is this a current diagnosis for this admission?: Yes Plan: Blood pressures are still borderline high. I will likely institute some of his blood pressure medications tomorrow. (6) Hypokalemia Is this a current diagnosis for this admission?: Yes Plan: Potassium is better but still low at 3.3. Continue supplementation. (7) Syncope and collapse Is this a current diagnosis for this admission?: Yes Plan: Likely from blood loss anemia. Resolved. (8) Constipation Qualifiers: Constipation type: slow transit constipation Qualified Code(s): K59.01 - Slow transit constipation Is this a current diagnosis for this admission?: Yes Plan: The patient responded to the suppository from last night. Continue to monitor stool output and try to keep bowel movements regular. - Time Time Spent with patient: 15-24 minutes Medications reviewed and adjusted accordingly: Yes
[2018-07-19] MEDS: ACETAMINOPHEN 325 MG TABLET PO PRN (21:58)
[2018-07-20 06:23] LABS: ABSOLUTE BASOPHILS # (AUTO) 0.1 10^3/uL (0.0-0.2); ABSOLUTE EOSINOPHILS # (AUTO) 0.3 10^3/uL (0.0-0.6); ABSOLUTE LYMPHOCYTES (AUTO) 1.9 10^3/uL (0.5-4.7); ABSOLUTE MONOCYTES (AUTO) 1.5 10^3/uL (0.1-1.4); ABSOLUTE NEUT (AUTO) 13.8 10^3/uL (1.7-8.2); BASOPHILS % (AUTO) 0.6 % (0-2); EOSINOPHILS % (AUTO) 1.9 % (0-6); HEMATOCRIT 26.5 % (37.9-51.0); HEMOGLOBIN 8.8 g/dL (13.5-17.0); LYMPHOCYTES % (AUTO) 10.9 % (13-45); MEAN CORPUSCULAR HEMOGLOBIN 28.3 pg (27.0-33.4); MEAN CORPUSCULAR HGB CONC 33.2 g/dL (32.0-36.0); MEAN CORPUSCULAR VOLUME 85 fl (80-97); MONOCYTES % (AUTO) 8.3 % (3-13); PLATELET COUNT 379 10^3/uL (150-450); RED BLOOD COUNT 3.11 10^6/uL (4.35-5.55); RED CELL DISTRIBUTION WIDTH 15.3 % (11.5-14.0); SEGMENTED NEUTROPHILS % (AUTO) 78.3 % (42-78); TOTAL CELLS COUNTED % (AUTO) 100 %; WHITE BLOOD COUNT 17.6 10^3/uL (4.0-10.5)
[2018-07-20 06:50] LABS: ANION GAP 15 (5-19); BLOOD UREA NITROGEN 9 mg/dL (7-20); CALCIUM 7.4 mg/dL (8.4-10.2); CARBON DIOXIDE 25 mmol/L (22-30); CHLORIDE 95 mmol/L (98-107); GLUCOSE 168 mg/dL (75-110); POTASSIUM 3.2 mmol/L (3.6-5.0); SODIUM 134.8 mmol/L (137-145)
[2018-07-20] MEDS: INSULIN LISPRO 100 UNIT/ML 3 ML VIAL SUBCUT SCH ×4 (07:53→21:27)
[2018-07-20] MEDS: NORMAL SALINE 1000 ML 1,000 ML IV PRN (08:41)
--- NOTE | 2018-07-20 09:07 | PDOC PROGRESS REPORT ---
Subjective Progress Note for:: 07/20/18 Subjective:: feeling better, having bm's Reason For Visit: ABLA, LOWER GI BLEED s/p sub total colectomy Physical Exam Vital Signs: Temp Pulse Resp BP Pulse Ox 98.6 F 92 18 152/59 H 96 07/20/18 05:29 07/20/18 07:00 07/20/18 05:29 07/20/18 05:29 07/20/18 05:29 Intake & Output 07/19/18 07/20/18 07/21/18 06:59 06:59 06:59 Intake Total 3084 2300 Balance 3084 2300 Weight 109.4 kg 115.9 kg General appearance: PRESENT: no acute distress Head exam: PRESENT: normocephalic Eye exam: PRESENT: EOMI Mouth exam: PRESENT: moist Neck exam: PRESENT: full ROM Respiratory exam: PRESENT: clear to auscultation shayne Cardiovascular exam: PRESENT: RRR GI/Abdominal exam: PRESENT: soft Rectal exam: PRESENT: deferred Musculoskeletal exam: PRESENT: full ROM Neurological exam: PRESENT: alert, awake, oriented to person, oriented to place Psychiatric exam: PRESENT: appropriate affect Results Laboratory Results: 07/20/18 05:41 07/20/18 05:41 07/19/18 07/19/18 07/19/18 08:45 08:45 16:50 WBC 16.2 H RBC 3.18 L Hgb 9.1 L Hct 26.9 L MCV 85 MCH 28.5 MCHC 33.6 RDW 14.9 H Plt Count 378 Seg Neutrophils % 79.5 H Lymphocytes % 10.1 L Monocytes % 8.4 Eosinophils % 1.8 Basophils % 0.2 Absolute Neutrophils 12.9 H Absolute Lymphocytes 1.6 Absolute Monocytes 1.4 Absolute Eosinophils 0.3 Absolute Basophils 0.0 Sodium 132.9 L Potassium 3.3 L Chloride 93 L Carbon Dioxide 28 Anion Gap 12 BUN 9 Creatinine 0.67 Est GFR ( Amer) > 60 Est GFR (Non-Af Amer) > 60 Glucose 167 H Calcium 7.7 L Magnesium Urine Color ADRIAN Urine Appearance SLIGHTLY-CLOUDY Urine pH 5.0 Ur Specific [place] 1.027 Urine Protein 100 H Urine Glucose (UA) NEGATIVE Urine Ketones 20 H Urine Blood NEGATIVE Urine Nitrite NEGATIVE Ur Leukocyte Esterase NEGATIVE Urine WBC (Auto) 1 Urine RBC (Auto) 0 07/20/18 07/20/18 05:41 05:41 WBC 17.6 H RBC 3.11 L Hgb 8.8 L Hct 26.5 L MCV 85 MCH 28.3 MCHC 33.2 RDW 15.3 H Plt Count 379 Seg Neutrophils % 78.3 H Lymphocytes % 10.9 L Monocytes % 8.3 Eosinophils % 1.9 Basophils % 0.6 Absolute Neutrophils 13.8 H Absolute Lymphocytes 1.9 Absolute Monocytes 1.5 H Absolute Eosinophils 0.3 Absolute Basophils 0.1 Sodium 134.8 L Potassium 3.2 L Chloride 95 L Carbon Dioxide 25 Anion Gap 15 BUN 9 Creatinine 0.60 Est GFR ( Amer) > 60 Est GFR (Non-Af Amer) > 60 Glucose 168 H Calcium 7.4 L Magnesium 2.0 Urine Color Urine Appearance Urine pH Ur Specific [place] Urine Protein Urine Glucose (UA) Urine Ketones Urine Blood Urine Nitrite Ur Leukocyte Esterase Urine WBC (Auto) Urine RBC (Auto) 07/10/18 07/11/18 10:27 03:35 Troponin I 0.032 NT-Pro-B Natriuret Pep 45 Impressions: Chest X-Ray 07/19/18 00:00 IMPRESSION: Low volume AP examination without acute abnormality of the lungs. No focal airspace opacity. Assessment & Plan - Diagnosis (1) Diverticula of colon Is this a current diagnosis for this admission?: Yes (2) GI bleeding Qualifiers: GI bleed type/associated pathology: diverticulosis Qualified Code(s): K57.91 - Diverticulosis of intestine, part unspecified, without perforation or abscess with bleeding Is this a current diagnosis for this admission?: Yes - Plan Summary Plan Summary: s/p subtotal colectomy for lower gi bleeding now with return of bowel function rising wbc 17k this am afeb, vss will obtain ct abd pelvis today r/o abscess.
[2018-07-20] MEDS: DOCUSATE SODIUM 100 MG CAPSULE PO SCH ×2 (09:43→17:20)
[2018-07-20] MEDS: POTASSIUM CHLORIDE 10 MEQ CAPSULE.ER PO SCH ×2 (09:47→21:41)
--- NOTE | 2018-07-20 12:56 | RADIOLOGY REPORT (SQ) ---
EXAM DESCRIPTION: CT ABD/PELVIS WITH IV ORAL COMPLETED DATE/TIME: 07/20/2018 12:34 pm REASON FOR STUDY: r/o abscess COMPARISON: None. TECHNIQUE: CT scan of the abdomen and pelvis performed using helical scanning technique with dynamic intravenous contrast injection. No oral contrast. Images reviewed with lung, soft tissue, and bone w indows. Reconstructed coronal and sagittal MPR images reviewed. Delayed images for evaluation of the urinary system also acquired. All images stored on PACS. All CT scanners at this facility use dose modulation, iterative reconstruction, and/or weight based d osing when appropriate to reduce radiation dose to as low as reasonably achievable (ALARA). [facility]: Dose Right [facility]: CareDose [facility]: Dose Right [facility]: Teradose 4D [facility]: [facility] CONTRAST TYPE AND DOSE: contrast/concentration: Isovue 350.00 mg/ml; Total Contrast Delivered: 100.0 ml; Total Saline Delivered: 30.0 ml RENAL FUNCTION: GFR > 60. RADIATION DOSE: CT Rad equipment meets quality standard of care and radiation dose reduction techniq ues were employed. CTDIvol: 19.4 - 20.2 mGy. DLP: 2519 mGy-cm.. LIMITATIONS: None. FINDINGS: LOWER CHEST: Subsegmental atelectasis in both lower lobes. LIVER: Normal size. No enhancing masses. No dilated ducts. SPLEEN: Normal size. No focal lesions. PANCREAS: No masses identified. No significant calcifications.Pancreatic duct not dilated. GALLBLADDER: Surgically absent. ADRENAL GLANDS: No significant masses. RIGHT KIDNEY AND URETER: No cysts identified. No solid masses identified. No calcified stones. No hyd ronephrosis or hydroureter. LEFT KIDNEY AND URETER: No cysts identified. No solid masses identified. No calcified stones. No hydr onephrosis or hydroureter. AORTA AND VESSELS: No aneurysm. No dissection. Renal arteries, SMA, celiac without significant stenos is. RETROPERITONEUM: No bulky retroperitoneal adenopathy. BOWEL AND PERITONEAL CAVITY: Small bowel dilatation- obstruction with adjacent inflammatory changes. There is a moderate-large amount of free fluid without defined abscess, infection is not excluded. Scattered areas of free air consistent with recent surgery. APPENDIX: Normal. PELVIS: Moderate free fluid. Unremarkable bladder. ABDOMINAL WALL: Small Left inguinal hernia with free fluid tracking from the abdominal cavity. BONES: No acute findings. OTHER: No other significant finding. IMPRESSION: Small bowel dilatation- obstruction with adjacent inflammatory changes. There is a mode rate-large amount of free fluid without defined abscess, infection is not excluded. Scattered areas of free air consistent with recent surgery. TECHNICAL DOCUMENTATION: JOB ID: [id number] Quality ID # [id number]: Final reports with documentation of one or more dose reduction techniques (e.g., Au tomated exposure control, adjustment of the mA and/or kV according to patient size, use of iterative reconstruction technique) 2010 [employer]- All Rights Reserved Reading location - IP/workstation name: [email or web address]
[2018-07-20] MEDS: OXYCODONE HCL IR 5 MG TABLET PO PRN (21:41)
[2018-07-21 05:23] LABS: ABSOLUTE BASOPHILS # (AUTO) 0.1 10^3/uL (0.0-0.2); ABSOLUTE EOSINOPHILS # (AUTO) 0.3 10^3/uL (0.0-0.6); ABSOLUTE LYMPHOCYTES (AUTO) 2.3 10^3/uL (0.5-4.7); ABSOLUTE MONOCYTES (AUTO) 1.3 10^3/uL (0.1-1.4); ABSOLUTE NEUT (AUTO) 9.9 10^3/uL (1.7-8.2); BASOPHILS % (AUTO) 0.7 % (0-2); EOSINOPHILS % (AUTO) 2.4 % (0-6); HEMOGLOBIN 9.1 g/dL (13.5-17.0); LYMPHOCYTES % (AUTO) 16.6 % (13-45); MEAN CORPUSCULAR HGB CONC 32.7 g/dL (32.0-36.0); MEAN CORPUSCULAR VOLUME 86 fl (80-97); PLATELET COUNT 458 10^3/uL (150-450); RED BLOOD COUNT 3.27 10^6/uL (4.35-5.55); RED CELL DISTRIBUTION WIDTH 15.2 % (11.5-14.0); SEGMENTED NEUTROPHILS % (AUTO) 71.3 % (42-78); TOTAL CELLS COUNTED % (AUTO) 100 %; WHITE BLOOD COUNT 13.9 10^3/uL (4.0-10.5)
[2018-07-21] MEDS: NORMAL SALINE 1000 ML 1,000 ML IV PRN (05:51)
--- NOTE | 2018-07-21 06:48 | PDOC PROGRESS REPORT ---
Subjective Progress Note for:: 07/20/18 Subjective:: Patient sitting at the edge of the bed eating lunch. Does not appear to be in any distress. Reason For Visit: ABLA, LOWER GI BLEED Physical Exam Vital Signs: Temp Pulse Resp BP Pulse Ox 100.2 F 103 H 18 124/60 95 07/20/18 19:56 07/20/18 19:56 07/20/18 19:56 07/20/18 19:56 07/20/18 19:56 Intake & Output 07/19/18 07/20/18 07/21/18 06:59 06:59 06:59 Intake Total 3084 2300 387 Balance 3084 2300 387 Weight 109.4 kg 115.9 kg General appearance: PRESENT: no acute distress, cooperative, well-developed Head exam: PRESENT: atraumatic, normocephalic Eye exam: PRESENT: conjunctiva pale. ABSENT: scleral icterus Ear exam: PRESENT: normal external ear exam Mouth exam: PRESENT: moist, tongue midline Teeth exam: ABSENT: poor dentation Respiratory exam: PRESENT: rales - Faint rales at bases, symmetrical, unlabored. ABSENT: rhonchi, tachypnea, wheezes Cardiovascular exam: PRESENT: RRR, +S1, +S2 GI/Abdominal exam: PRESENT: normal bowel sounds, soft. ABSENT: guarding, tenderness Rectal exam: PRESENT: deferred Neurological exam: PRESENT: alert, awake, oriented to person, oriented to place, oriented to situation Psychiatric exam: PRESENT: flat affect. ABSENT: agitated, anxious Focused psych exam: ABSENT: delusional, restlessness Results Laboratory Results: 07/20/18 05:41 07/20/18 05:41 07/20/18 07/20/18 05:41 05:41 WBC 17.6 H RBC 3.11 L Hgb 8.8 L Hct 26.5 L MCV 85 MCH 28.3 MCHC 33.2 RDW 15.3 H Plt Count 379 Seg Neutrophils % 78.3 H Lymphocytes % 10.9 L Monocytes % 8.3 Eosinophils % 1.9 Basophils % 0.6 Absolute Neutrophils 13.8 H Absolute Lymphocytes 1.9 Absolute Monocytes 1.5 H Absolute Eosinophils 0.3 Absolute Basophils 0.1 Sodium 134.8 L Potassium 3.2 L Chloride 95 L Carbon Dioxide 25 Anion Gap 15 BUN 9 Creatinine 0.60 Est GFR ( Amer) > 60 Est GFR (Non-Af Amer) > 60 Glucose 168 H Calcium 7.4 L Magnesium 2.0 07/10/18 07/11/18 10:27 03:35 Troponin I 0.032 NT-Pro-B Natriuret Pep 45 Impressions: Chest X-Ray 07/19/18 00:00 IMPRESSION: Low volume AP examination without acute abnormality of the lungs. No focal airspace opacity. Abdomen/Pelvis CT 07/20/18 00:00 IMPRESSION: Small bowel dilatation- obstruction with adjacent inflammatory changes. There is a moderate-large amount of free fluid without defined ab scess, infection is not excluded. Scattered areas of free air consistent with recent surgery. Assessment and Plan - Diagnosis (1) GI bleeding Qualifiers: GI bleed type/associated pathology: diverticulosis Qualified Code(s): K57.91 - Diverticulosis of intestine, part unspecified, without perforation or abscess with bleeding Is this a current diagnosis for this admission?: Yes Plan: Hemoglobin is just slightly lower today but this is not clinically significant. If it continues to trend down then we need to consider recurrent blood loss. (2) Acute blood loss anemia Is this a current diagnosis for this admission?: Yes Plan: Slowly improving. The slight drop in today's hemoglobin is not clinically significant unless it continues to trend downward. (3) Diabetes mellitus Qualifiers: Diabetes mellitus type: type 2 Diabetes mellitus retirement insulin use: without retirement use Is this a current diagnosis for this admission?: Yes Plan: Fingerstick glucoses continue to remain below 200 continue to monitor. Continue sliding scale. Consider resuming sitagliptin and metformin. (4) Hyperlipidemia Qualifiers: Hyperlipidemia type: pure hypercholesterolemia Qualified Code(s): E78.00 - Pure hypercholesterolemia, unspecified; E78.0 - Pure hypercholesterolemia Is this a current diagnosis for this admission?: Yes Plan: Resume atorvastatin now that he is tolerating oral diet. (5) Hypertension Qualifiers: Hypertension type: essential hypertension Qualified Code(s): I10 - Essential (primary) hypertension Is this a current diagnosis for this admission?: Yes Plan: He was previously on 20 mg of lisinopril daily. I will resume his lisinopril but at a lower dose of 5 mg. Continue to monitor blood pressure. Adjust medications based on blood pressure readings. (6) Hypokalemia Is this a current diagnosis for this admission?: Yes Plan: He is now on oral potassium. We will continue to monitor potassium level. Now that he is on a regular diet this should correct. (7) Syncope and collapse Is this a current diagnosis for this admission?: Yes Plan: Resolved (8) Constipation Qualifiers: Constipation type: slow transit constipation Qualified Code(s): K59.01 - S low transit constipation Is this a current diagnosis for this admission?: Yes Plan: Improved. Adjust medications as required. - Time Time Spent with patient: 15-24 minutes Medications reviewed and adjusted accordingly: Yes - Plan Summary Plan Summary: The patient's did express some concerns about the patient's memory, concentration and attention span. This could just be related to his prolonged critical illness. Continue to monitor.
[2018-07-21] MEDS: INSULIN LISPRO 100 UNIT/ML 3 ML VIAL SUBCUT SCH ×4 (07:47→22:04)
--- NOTE | 2018-07-21 08:23 | PDOC PROGRESS REPORT ---
Subjective Progress Note for:: 07/21/18 Reason For Visit: ABLA, LOWER GI BLEED Physical Exam Vital Signs: Temp Pulse Resp BP Pulse Ox 97.4 F 95 16 131/63 H 98 07/21/18 04:40 07/21/18 07:00 07/21/18 04:40 07/21/18 04:40 07/21/18 04:40 Intake & Output 07/20/18 07/21/18 07/22/18 06:59 06:59 06:59 Intake Total 2300 1387 Balance 2300 1387 Weight 115.9 kg 114.3 kg General appearance: PRESENT: no acute distress Head exam: PRESENT: normocephalic Eye exam: PRESENT: EOMI Ear exam: PRESENT: normal external ear exam Mouth exam: PRESENT: moist Neck exam: PRESENT: full ROM Respiratory exam: PRESENT: clear to auscultation shayne Cardiovascular exam: PRESENT: RRR Pulses: PRESENT: normal carotid pulses, normal radial pulses, normal femoral pulses GI/Abdominal exam: PRESENT: soft Rectal exam: PRESENT: deferred Extremities exam: PRESENT: full ROM Musculoskeletal exam: PRESENT: full ROM Neurological exam: PRESENT: alert, awake, oriented to person, oriented to place Results Laboratory Results: 07/21/18 04:23 07/21/18 04:23 07/21/18 07/21/18 04:23 04:23 WBC 13.9 H RBC 3.27 L Hgb 9.1 L Hct 28.0 L MCV 86 MCH 28.0 MCHC 32.7 RDW 15.2 H Plt Count 458 H Seg Neutrophils % 71.3 Lymphocytes % 16.6 Monocytes % 9.0 Eosinophils % 2.4 Basophils % 0.7 Absolute Neutrophils 9.9 H Absolute Lymphocytes 2.3 Absolute Monocytes 1.3 Absolute Eosinophils 0.3 Absolute Basophils 0.1 Sodium Cancelled Potassium Cancelled Chloride Cancelled Carbon Dioxide Cancelled Anion Gap Cancelled BUN Cancelled Creatinine Cancelled Est GFR ( Amer) Cancelled Est GFR (Non-Af Amer) Cancelled Glucose Cancelled Calcium Cancelled 07/10/18 07/11/18 10:27 03:35 Troponin I 0.032 NT-Pro-B Natriuret Pep 45 Impressions: Chest X-Ray 07/19/18 00:00 IMPRESSION: Low volume AP examination without acute abnormality of the lungs. No focal airspace opacity. Abdomen/Pelvis CT 07/20/18 00:00 IMPRESSION: Small bowel dilatation- obstruction with adjacent inflammatory changes. There is a moderate-large amount of free fluid without defined abscess, infection is not excluded. Scattered areas of free air consistent with recent surgery. Assessment & Plan - Diagnosis (1) Diverticula of colon Is this a current diagnosis for this admission?: Yes (2) GI bleeding Qualifiers: GI bleed type/associated pathology: diverticulosis Qualified Code(s): K57.91 - Diverticulosis of intestine, part unspecified, without perforation or abscess with bleeding Is this a current diagnosis for this admission?: Yes - Plan Summary Plan Summary: feels better today passing more stool/flatus ct reviwed yesterday c/w ileus and post op fluid this am better appetite wbc down to 13k h/h stable prob ok to dc home in am.
[2018-07-21] MEDS: DOCUSATE SODIUM 100 MG CAPSULE PO SCH ×2 (09:08→17:12)
[2018-07-21] MEDS: ATORVASTATIN CALCIUM 40 MG TABLET PO SCH (09:10)
[2018-07-21] MEDS: LISINOPRIL 5 MG TABLET PO SCH (09:10)
[2018-07-21] MEDS: POTASSIUM CHLORIDE 10 MEQ CAPSULE.ER PO SCH ×2 (09:10→22:03)
[2018-07-21] MEDS: OXYCODONE HCL IR 5 MG TABLET PO PRN ×2 (16:28→22:03)
[2018-07-21] MEDS ORDERED: IRON SUCROSE COMPLEX INJ/PF 100 MG/5 ML SDV IV ONE (17:08)
--- NOTE | 2018-07-21 17:21 | PDOC PROGRESS REPORT ---
Subjective Progress Note for:: 07/21/18 Subjective:: The patient reports that surgery indicated he would be ready to go home tomorrow. Reason For Visit: ABLA, LOWER GI BLEED Physical Exam Vital Signs: Temp Pulse Resp BP Pulse Ox 97.3 F 90 18 119/62 96 07/21/18 09:31 07/21/18 09:31 07/21/18 09:31 07/21/18 09:31 07/21/18 09:31 Intake & Output 07/20/18 07/21/18 07/22/18 06:59 06:59 06:59 Intake Total 2300 1387 146 Balance 2300 1387 146 Weight 115.9 kg 114.3 kg General appearance: PRESENT: no acute distress, cooperative, well-developed Head exam: PRESENT: atraumatic, normocephalic Ear exam: PRESENT: normal external ear exam Mouth exam: PRESENT: moist, tongue midline Respiratory exam: PRESENT: rales - Faint rales at bases possibly atelectasis, symmetrical, unlabored. ABSENT: rhonchi, tachypnea, wheezes Cardiovascular exam: PRESENT: RRR, +S1, +S2, systolic murmur - 2/6 GI/Abdominal exam: PRESENT: normal bowel sounds, soft, tenderness - Around surgical site. ABSENT: distended Rectal exam: PRESENT: deferred, other - Still having diarrhea Extremities exam: ABSENT: calf tenderness, pedal edema Musculoskeletal exam: PRESENT: normal inspection Neurological exam: PRESENT: alert, awake, oriented to person, oriented to place, oriented to time, oriented to situation, CN II-XII grossly intact Psychiatric exam: PRESENT: flat affect. ABSENT: agitated, anxious Focused psych exam: ABSENT: delusional, restlessness Results Laboratory Results: 07/21/18 04:23 07/21/18 04:23 07/21/18 07/21/18 04:23 04:23 WBC 13.9 H RBC 3.27 L Hgb 9.1 L Hct 28.0 L MCV 86 MCH 28.0 MCHC 32.7 RDW 15.2 H Plt Count 458 H Seg Neutrophils % 71.3 Lymphocytes % 16.6 Monocytes % 9.0 Eosinophils % 2.4 Basophils % 0.7 Absolute Neutrophils 9.9 H Absolute Lymphocytes 2.3 Absolute Monocytes 1.3 Absolute Eosinophils 0.3 Absolute Basophils 0.1 Sodium Cancelled Potassium Cancelled Chloride Cancelled Carbon Dioxide Cancelled Anion Gap Cancelled BUN Cancelled Creatinine Cancelled Est GFR ( Amer) Cancelled Est GFR (Non-Af Amer) Cancelled Glucose Cancelled Calcium Cancelled 07/19/18 16:50 Clean Catch Midstream Urine Culture - Final Escherichia Coli Klebsiella Oxytoca 07/10/18 07/11/18 10:27 03:35 Troponin I 0.032 NT-Pro-B Natriuret Pep 45 Impressions: Chest X-Ray 07/19/18 00:00 IMPRESSION: Low volume AP examination without acute abnormality of the lungs. No focal airspace opacity. Abdomen/Pelvis CT 07/20/18 00:00 IMPRESSION: Small bowel dilatation- obstruction with adjacent inflammatory changes. There is a moderate-large amount of free fluid without defined abscess, infection is not excluded. Scattered areas of free air consistent with recent surgery. Assessment and Plan - Diagnosis (1) GI bleeding Qualifiers: GI bleed type/associated pathology: diverticulosis Qualified Code(s): K57.91 - Diverticulosis of intestine, part unspecified, without perforation or abscess with bleeding Is this a current diagnosis for this admission?: Yes Plan: Hemoglobin continues to improve. No evidence of further GI bleeding. (2) Acute blood loss anemia Is this a current diagnosis for this admission?: Yes Plan: Slowly improving. The patient was also found to have undetectable iron levels. I will give him a second dose of intravenous iron today as surgery anticipates discharge tomorrow. (3) Diabetes mellitus Qualifiers: Diabetes mellitus type: type 2 Diabetes mellitus detention insulin use: without detention use Is this a current diagnosis for this admission?: Yes Plan: Continue current regimen. Only one Accu-Chek was greater than 200 and it was 206. Patient should be able to return to his home regimen. (4) Hyperlipidemia Qualifiers: Hyperlipidemia type: pure hypercholesterolemia Qualified Code(s): E78.00 - Pure hypercholesterolemia, unspecified; E78.0 - Pure hypercholesterolemia Is this a current diagnosis for this admission?: Yes Plan: Continue statin therapy (5) Hypertension Qualifiers: Hypertension type: essential hypertension Qualified Code(s): I10 - E ssential (primary) hypertension Is this a current diagnosis for this admission?: Yes Plan: Good blood pressure control. Continue current regimen. (6) Hypokalemia Is this a current diagnosis for this admission?: Yes Plan: Still borderline low. I have added potassium chloride to his diet. Unfortunately his laboratory studies were not drawn today as ordered. (7) Syncope and collapse Is this a current diagnosis for this admission?: Yes Plan: Resolved. Likely secondary to anemia from GI bleeding. (8) Constipation Qualifiers: Constipation type: slow transit constipation Qualified Code(s): K59.01 - Slow transit constipation Is this a current diagnosis for this admission?: Yes Plan: Resolved. The patient in fact is having diarrhea. I will discontinue his Colace. - Time Time Spent with patient: 25-34 minutes Medications reviewed and adjusted accordingly: Yes Anticipated discharge: Home
[2018-07-22 05:01] LABS: ABSOLUTE BASOPHILS # (AUTO) 0.1 10^3/uL (0.0-0.2); ABSOLUTE EOSINOPHILS # (AUTO) 0.3 10^3/uL (0.0-0.6); ABSOLUTE LYMPHOCYTES (AUTO) 2.1 10^3/uL (0.5-4.7); ABSOLUTE NEUT (AUTO) 8.7 10^3/uL (1.7-8.2); BASOPHILS % (AUTO) 0.5 % (0-2); EOSINOPHILS % (AUTO) 2.4 % (0-6); HEMATOCRIT 24.4 % (37.9-51.0); HEMOGLOBIN 8.2 g/dL (13.5-17.0); LYMPHOCYTES % (AUTO) 17.1 % (13-45); MEAN CORPUSCULAR HEMOGLOBIN 28.7 pg (27.0-33.4); MEAN CORPUSCULAR HGB CONC 33.4 g/dL (32.0-36.0); MEAN CORPUSCULAR VOLUME 86 fl (80-97); MONOCYTES % (AUTO) 8.5 % (3-13); PLATELET COUNT 440 10^3/uL (150-450); RED BLOOD COUNT 2.84 10^6/uL (4.35-5.55); RED CELL DISTRIBUTION WIDTH 15.1 % (11.5-14.0); SEGMENTED NEUTROPHILS % (AUTO) 71.5 % (42-78); TOTAL CELLS COUNTED % (AUTO) 100 %; WHITE BLOOD COUNT 12.1 10^3/uL (4.0-10.5)
[2018-07-22 05:21] LABS: ANION GAP 12 (5-19); BLOOD UREA NITROGEN 5 mg/dL (7-20); CALCIUM 7.5 mg/dL (8.4-10.2); CARBON DIOXIDE 28 mmol/L (22-30); CHLORIDE 96 mmol/L (98-107); GLUCOSE 138 mg/dL (75-110); POTASSIUM 3.2 mmol/L (3.6-5.0); SODIUM 135.9 mmol/L (137-145)
[2018-07-22] MEDS: INSULIN LISPRO 100 UNIT/ML 3 ML VIAL SUBCUT SCH (07:57)
--- NOTE | 2018-07-22 07:59 | PDOC PROGRESS REPORT ---
Subjective Progress Note for:: 07/22/18 Reason For Visit: ABLA, LOWER GI BLEED Physical Exam Vital Signs: Temp Pulse Resp BP Pulse Ox 99.6 F 90 16 120/67 93 07/22/18 00:00 07/22/18 02:00 07/22/18 00:00 07/22/18 00:00 07/22/18 00:00 Intake & Output 07/21/18 07/22/18 07/23/18 06:59 06:59 06:59 Intake Total 1387 1346 Balance 1387 1346 Weight 114.3 kg 114 kg General appearance: PRESENT: no acute distress Head exam: PRESENT: normocephalic Eye exam: PRESENT: EOMI Mouth exam: PRESENT: moist Neck exam: PRESENT: full ROM Respiratory exam: PRESENT: clear to auscultation shayne Cardiovascular exam: PRESENT: RRR Pulses: PRESENT: normal radial pulses, normal femoral pulses GI/Abdominal exam: PRESENT: normal bowel sounds, soft Rectal exam: PRESENT: deferred Extremities exam: PRESENT: full ROM Musculoskeletal exam: PRESENT: full ROM Neurological exam: PRESENT: alert, awake, oriented to person, oriented to place Psychiatric exam: PRESENT: appropriate affect Skin exam: PRESENT: dry - doing well passing brown stool wants to go home. Results Laboratory Results: 07/22/18 04:10 07/22/18 04:10 07/22/18 07/22/18 04:10 04:10 WBC 12.1 H RBC 2.84 L Hgb 8.2 L Hct 24.4 L MCV 86 MCH 28.7 MCHC 33.4 RDW 15.1 H Plt Count 440 Seg Neutrophils % 71.5 Lymphocytes % 17.1 Monocytes % 8.5 Eosinophils % 2.4 Basophils % 0.5 Absolute Neutrophils 8.7 H Absolute Lymphocytes 2.1 Absolute Monocytes 1.0 Absolute Eosinophils 0.3 Absolute Basophils 0.1 Sodium 135.9 L Potassium 3.2 L Chloride 96 L Carbon Dioxide 28 Anion Gap 12 BUN 5 L Creatinine 0.55 Est GFR ( Amer) > 60 Est GFR (Non-Af Amer) > 60 Glucose 138 H Calcium 7.5 L Magnesium 2.0 07/19/18 16:50 Clean Catch Midstream Urine Culture - Final Escherichia Coli Klebsiella Oxytoca 07/10/18 07/11/18 10:27 03:35 Troponin I 0.032 NT-Pro-B Natriuret Pep 45 Impressions: Chest X-Ray 07/19/18 00:00 IMPRESSION: Low volume AP examination without acute abnormality of the lungs. No focal airspace opacity. Abdomen/Pelvis CT 07/20/18 00:00 IMPRESSION: Small bowel dilatation- obstruction with adjacent inflammatory changes. There is a moderate-large amount of free fluid without defined abscess, infection is not excluded. Scattered areas of free air consistent with recent surgery. Assessment & Plan - Diagnosis (1) Diverticula of colon Is this a current diagnosis for this admission?: Yes (2) GI bleeding Qualifiers: GI bleed type/associated pathology: diverticulosis Qualified Code(s): K57.91 - Diverticulosis of intestine, part unspecified, without perforation or abscess with bleeding Is this a current diagnosis for this admission?: Yes
[2018-07-22] MEDS ORDERED: POTASSIUM CHLORIDE 10 MEQ CAPSULE.ER PO ONE (08:30)
--- NOTE | 2018-07-22 08:38 | PDOC PROGRESS REPORT ---
Subjective Progress Note for:: 07/22/18 Subjective:: This is 63 years old male patient presented to ER with chief complaint of dizziness followed by onset of melena. While patient was in ER he witnessed passing a large grossly bloody and bright red blood with clots. The bleeding per rectum is followed by syncopal episode. The lower GI bleeding is diverticular origin. Patient is status post extended right hemicolectomy. This morning I seen patient resting in bed comfortably. He finished his breakfast. No nausea or vomiting. No more melena or bright red per rectum. I reviewed his lab his hemoglobin is still low. And his potassium is 3.2 which is going to be repleted. Patient was evaluated this morning by Dr. Garrett who cleared him for discharge and he will follow him in his office. From medical point of patient stable enough to go home. Reason For Visit: ABLA, LOWER GI BLEED Physical Exam Vital Signs: Temp Pulse Resp BP Pulse Ox 99.6 F 96 16 120/67 93 07/22/18 00:00 07/22/18 07:00 07/22/18 00:00 07/22/18 00:00 07/22/18 00:00 Intake & Output 07/21/18 07/22/18 07/23/18 06:59 06:59 06:59 Intake Total 1387 1346 Balance 1387 1346 Weight 114.3 kg 114 kg General appearance: PRESENT: no acute distress Head exam: PRESENT: atraumatic, normocephalic Respiratory exam: PRESENT: clear to auscultation shayne. ABSENT: rales, rhonchi, wheezes Cardiovascular exam: PRESENT: RRR. ABSENT: diastolic murmur, rubs, systolic murmur GI/Abdominal exam: PRESENT: normal bowel sounds, soft, other - The wrist midline incision.. ABSENT: distended, guarding, mass, organolmegaly, rebound, tenderness Neurological exam: PRESENT: alert, awake, oriented to time, oriented to situation Results Laboratory Results: 07/22/18 04:10 07/22/18 04:10 07/22/18 07/22/18 04:10 04:10 WBC 12.1 H RBC 2.84 L Hgb 8.2 L Hct 24.4 L MCV 86 MCH 28.7 MCHC 33.4 RDW 15.1 H Plt Count 440 Seg Neutrophils % 71.5 Lymphocytes % 17.1 Monocytes % 8.5 Eosinophils % 2.4 Basophils % 0.5 Absolute Neutrophils 8.7 H Absolute Lymphocytes 2.1 Absolute Monocytes 1.0 Absolute Eosinophils 0.3 Absolute Basophils 0.1 Sodium 135.9 L Potassium 3.2 L Chloride 96 L Carbon Dioxide 28 Anion Gap 12 BUN 5 L Creatinine 0.55 Est GFR ( Amer) > 60 Est GFR (Non-Af Amer) > 60 Glucose 138 H Calcium 7.5 L Magnesium 2.0 07/19/18 16:50 Clean Catch Midstream Urine Culture - Final Escherichia Coli Klebsiella Oxytoca 07/10/18 07/11/18 10:27 03:35 Troponin I 0.032 NT-Pro-B Natriuret Pep 45 Impressions: Chest X-Ray 07/19/18 00:00 IMPRESSION: Low volume AP examination without acute abnormality of the lungs. No focal airspace opacity. Abdomen/Pelvis CT 07/20/18 00:00 IMPRESSION: Small bowel dilatation- obstruction with adjacent inflammatory changes. There is a moderate-large amount of free fluid without defined abscess, infection is not excluded. Scattered areas of free air consistent with recent surgery. Assessment and Plan - Diagnosis (1) Lower GI bleeding of diverticular origin Is this a current diagnosis for this admission?: Yes Plan: Per Dr. Garrett (2) Acute blood loss anemia Is this a current diagnosis for this admission?: Yes Plan: H&H relatively stable. (3) Hypokalemia Is this a current diagnosis for this admission?: Yes Plan: Patient will be given 80 mEq of Klor-Con (4) Diabetes mellitus Qualifiers: Diabetes mellitus type: type 2 Is this a current diagnosis for this admission?: Yes Plan: Continue current regimen (5) Hyperlipidemia Qualifiers: Hyperlipidemia type: unspecified Qualified Code(s): E78.5 - Hyperlipidemia, unspecified Is this a current diagnosis for this admission?: Yes Plan: Continue home medication (6) Hypertension Qualifiers: Hypertension type: essential hypertension Qualified Code(s): I10 - Essential (primary) hypertension Is this a current diagnosis for this admission?: Yes Plan: Continue current regimen. (7) Constipation Is this a current diagnosis for this admission?: Yes Plan: Resolved
[2018-07-22] MEDS: LISINOPRIL 5 MG TABLET PO SCH (09:55)
[2018-07-22] MEDS: ATORVASTATIN CALCIUM 40 MG TABLET PO SCH (09:55)
[2018-07-22] MEDS: POTASSIUM CHLORIDE 10 MEQ CAPSULE.ER PO SCH (09:55)
[2018-07-22 10:04] VITALS: BP 141/80
--- NOTE | 2018-07-22 13:39 | DISCHARGE SUMMARY E ---
Discharge Summary NAME: LORETTA SHINE SR : 1955 AGE: 63Y ADMITTED: 07/10/2018 DISCHARGED: 07/22/2018 ADMISSION DIAGNOSIS: GI bleed. FINAL DIAGNOSIS: GI bleed. OPERATIVE PROCEDURE: Subtotal colectomy. COMPLICATIONS: None. REASON FOR HOSPITALIZATION/HOSPITAL COURSE: This 63-year-old male presented with lower GI bleeding on the . He was initially admitted to the intensive care unit for fairly robust lower GI bleeding. He underwent a colonoscopy by Dr. Bullock which documented some bleeding from his hepatic flexure. He was then taken for a nuclear medicine scan where the result was suggestive of brisk bleeding from his hepatic flexure. He was, therefore, then taken on the early in the morning for a subtotal colectomy, at which time he had an extended right hemicolectomy. Postoperatively he has had a benign postop course; however, he had a prolonged ileus. He was monitored with an NG tube initially, which was subsequently removed after he started having some flatus. By the 17 of July he had a normal white count and his hemoglobin had remained stable. He was passing some dark stool and some diarrhea but no blood. His hemoglobin was monitored. He did receive 2 units of blood postoperatively but subsequent to that has had a stable hematocrit. He slowly was advanced throughout the next 4 to 5 days from a clear liquid diet to a regular diet progressively. At the time of discharge he is afebrile with stable vital signs. He is tolerating a regular diet. His white count has been trending down in the last few days now to 12. His hemoglobin is stable. He wants to be discharged home today. DISCHARGE MEDICATIONS: Include only Tramadol 50 mg tablet one p.o. every 6 hours p.r.n. pain. He will also resume his preoperative medications. He currently takes meloxicam, lisinopril, atorvastatin, and aspirin a day. He also takes sitagliptin 1 tablet daily. He has these medications at home and will resume his home doses. DISCHARGE INSTRUCTIONS: He will be given a follow-up appointment with me a week after discharge. He is instructed not to lift anything greater than 5 to 10 pounds for the next 4 to 6 weeks. It is okay for him to shower. He is to remove his waffle dressing tomorrow in the shower and then leave his wound open. He is able to drive in 2 to 3 days after returning home should he not be taking pain medications. DICTATING PHYSICIAN: CAROL FERREIRA M.D. [id number] PHY#: [id number] ID: [id number] JOB#: [id number] ACCT: [id number] cc:BRISA ROJAS M.D. CAROL FERREIRA M.D. >
== END 2018-07-22 10:50 | disposition home or self-care (01) | DRG 330 ==
LOC: ER 09:40 → EH 13:45 → ICU 17:46 → 4S 07-13 23:00
PROVIDERS: ADMIT Internal Medicine; ATTEND Internal Medicine
PROC: 0DD98ZX Extraction of Duodenum, Via Natural or Artificial Opening Endoscopic, Diagnostic (ICD-10-PCS; 2018-07-10)
PROC: 0DJD8ZZ Inspection of Lower Intestinal Tract, Via Natural or Artificial Opening Endoscopic (ICD-10-PCS; 2018-07-10)
PROC: 30233N1 Transfusion of Nonautologous Red Blood Cells into Peripheral Vein, Percutaneous Approach (ICD-10-PCS; 2018-07-10 18:00)
PROC: 30233N1 Transfusion of Nonautologous Red Blood Cells into Peripheral Vein, Percutaneous Approach (ICD-10-PCS; 2018-07-11)
PROC: 0DTF0ZZ Resection of Right Large Intestine, Open Approach (ICD-10-PCS; principal; 2018-07-11 01:00)
PROC: 30233N1 Transfusion of Nonautologous Red Blood Cells into Peripheral Vein, Percutaneous Approach (ICD-10-PCS; 2018-07-12)
DX: K57.31 Diverticulosis of large intestine without perforation or abscess with bleeding (principal); D62 Acute posthemorrhagic anemia; K26.9 Duodenal ulcer, unspecified as acute or chronic, without hemorrhage or perforation; I95.89 Other hypotension; K92.1 Melena; E87.6 Hypokalemia; I10 Essential (primary) hypertension; E11.8 Type 2 diabetes mellitus with unspecified complications; E78.00 Pure hypercholesterolemia, unspecified; K59.01 Slow transit constipation; Z79.84 Long term (current) use of oral hypoglycemic drugs; Z79.82 Long term (current) use of aspirin; Z79.899 Other long term (current) drug therapy
CPT/HCPCS: 00790; 36415; 36430; 43239; 45381; 71045; 74177; 78278; 80048; 80053; 81001; 82272; 82607; 82728; 82746; 82962; 83540; 83550; 83735; 83880; 84100; 84484; 85025; 85027; 85045; 85610; 85730; 86850; 86900; 86901; 86920; 87040; 87086; 87088; 87186; 88305; 88307; 88342; 93005; 93010; 94002; 94799; 96360; 96361; 99285; A9560; C9290; J0171; J0330; J0690; J1100; J1170; J1200; J1610; J1756; J1815; J1940; J2250; J2310; J2370; J2405; J2704; J3010; J3480; J3490; J7030; J7120; P9016; Q9969; S0164